=== PATIENT | female | born 1955 | race Caucasian/White ===

== ENCOUNTER → 2016-03-03 12:44 | Outpatient (CLI) | payer MEDICAID ==
[~2016-03-03 12:44] MED LIST: ACETAMINOPHEN325 MG PO; ADVAIR 250/501 DISK INH; ADVAIR 500/501 DISK INH; ASPIRIN325 MG PO; BAYER CHEWABLE81 MG PO; BETAPACE 80 MG80 MG PO; CORDARONE200 MG PO; COREG 3.1253.125 MG PO; CRESTOR10 MG PO; LASIX20 MG PO; LEVAQUIN500 MG PO; LEVOTHYROXINE175 MCG PO; NITRO-DUR0.4 MG TD; NITROSTAT0.4 MG SL; NORVASC5 MG PO; PEPCID20 MG PO; PLAVIX75 MG PO; POTASSIUM CHLO10 ME1 PO; PRAVACHOL40 MG PO; PROVENTIL/2.5 MG/3 M INH; SYNTHROID200 MC1 PO; SYNTHROID300 MCG PO; SYNTHROID50 MCG PO; TOPROL XL100 MG PO; VENTOLIN HFA18 GM INH; VIBRAMYCIN 100100 MG PO; ZESTRIL40 MG PO
== END | disposition home or self-care (01) ==
LOC: D.RT 02-26 09:00
DX: J44.9 Chronic obstructive pulmonary disease, unspecified (principal)

== ENCOUNTER 2016-05-23 11:00 | Outpatient (CLI) | payer MEDICAID ==
[~2016-05-23] VITALS: Ht 165.1 cm; Wt 106.8 kg
--- NOTE | ~2016-05-23 | HEMODYNAMI ---
PATIENT:JAMESON JAIN MEDICAL RECORD: [id number] : 51 LOCATION:[facility] ADMISSION DATE: 05/23/16 Generatedon:05/23/20169:51 Patient name: JAMESON JAIN Patient #: [id number] : 1955 Date of study: 05/23/2016 Page: Of Hemodynamic Procedure Report Patient Data Patient Demographics Procedure consent was obtained First Name: JAMESON Gender: Female Last Name: SUSY : 1955 [facility] Initial: L Age: 60 year(s) Patient #: [id number] Race: SSN: [id number] Additional ID: [id number] Contact details [address]: [address] [place] [address] State: [place] City: [place] Zip code: [address] Past Medical History Allergies Allergen Reaction Date Comments Reported Other allergy 03/30/2015 Sulfa Other allergy 05/23/2016 Sulfa Admission Admission Data Admission Date: 05/23/2016 Admission Time: 10:00 Arrival Date: 05/23/2016 Arrival Time: 0:00 Admit Source: Other Insurance Payor: Private health insurance Height (in.): 67 BSA: 2.17 (m2) Height (cm.): 170.18 BMI: 37.12 (kg/m2) Weight (lbs.): 237 Weight (kg.): 107.5 Lab Results Lab Result Date: 05/23/2016 Lab Result Time: 0:00 Biochemistry Name Units Result Min Max BUN mg/dl 23 --(----)-* 7 18 Creatinine mg/dl 1.6 --(----)-* 0.6 1.3 Procedure Procedure Types Cath Procedure Diagnostic Procedure [facility] w/Coronaries PCI Procedure Coronary Stent Initial Miscellaneous Procedures Moderate Sedation up to 15 minutes Procedure Description Procedure Date Procedure Date: 05/23/2016 Procedure Start Time: 9:33 Procedure End Time: 9:48 Procedure Staff Name Function Ryley Baer MD Performing Physician Joseph Sanabria RT Scrub Jarod Valladares RN Nurse Samantha Carmona RT Monitor Procedure Data Cath Procedure Fluoroscopy Diagnostic fluoroscopy Total fluoroscopy Time: 3.5 time: 3.5 min min Diagnostic fluoroscopy Total fluoroscopy dose: 370 dose: 370 mGy mGy Contrast Material Contrast Material Type Amount (ml) Isovue 300 120 Entry Location Entry Primary Successful Side Size Upsize Upsize Entry Closure Vargas ccessful Closure Location (Fr) 1 (Fr) 2 (Fr) Remarks Device Remarks Radial Right 6 Fr Mechanical tr b artery Short Compression Estimated blood loss: 10 ml Diagnostic catheters Device Type Used For End Catheter Placement Terumo 5Fr Letcher 110cm Procedure catheter Procedure Complications No complications Procedure Medications Medication Administration Route Dosage Oxygen NC 2 l/min Lidocaine 2% added to field 20 Heparin Flush Bag added to field 2 bags (1000units/500ml NS) 0.9% NaCl I.V. 100 ml/hr Versed I.V. 2 mg Fentanyl I.V. 100 mcg Radial Cocktail I.A. 1 syringe (Verapomil 2mg/Nitro 400mcg/Heparin 1500units) Versed I.V. 1 mg Fentanyl I.V. 50 mcg Versed I.V. 1 mg Fentanyl I.V. 50 mcg Heparin Bolus I.V. 4000 units Versed I.V. 1 mg Fentanyl I.V. 50 mcg Hemodynamics Rest BSA: 2.17 (m2) O2 Consumption: Estimated: 193.57 (ml/min) O2 Consumption indexed : Estimated:89.2 (ml/min/m) Heart Rate: 57 (bpm) Snapshots Pre Cath Intra NCS Post Cath Vital Signs Time Heart Resp SPO2 NIBP (mmHg) Rhythm Pain Sedation Rate (ipm) (%) Status Level (bpm) 8:56:34 56 15 100 153/69(130) NSR 0 (11) 10(A) , No pain 9:01:33 54 21 98 Measuring NSR 0 (11) 10(A) , No pain 9:02:24 54 17 99 154/64(79) NSR 0 (11) 10(A) , No pain 9:12:12 55 16 98 No Cuff NSR 0 (11) 10(A) , No pain 9:15:16 54 17 95 122/56(91) NSR 0 (11) 10(A) , No pain 9:19:53 53 16 94 118/56(85) NSR 0 (11) 10(A) , No pain 9:24:25 54 17 97 123/59(71) NSR 0 (11) 10(A) , No pain 9:28:58 56 18 100 124/54(99) NSR 0 (11) 10(A) , No pain 9:34:32 58 21 98 126/61(92) NSR 0 (11) 10(A) , No pain 9:39:04 55 17 94 103/50(69) NSR 0 (11) 9(A) , No pain 9:43:34 57 16 93 104/50(71) NSR 0 (11) 9(A) , No pain 9:48:05 60 16 99 115/48(80) NSR 0 (11) 10(A) , No pain Medications Time Medication Route Dose Verified Delivered Reason Notes Effectiveness by by 9:14:18 Oxygen NC 2 l/min Ryley Buffie used for Keyur Valladares RN procedure 9:14:25 Lidocaine 2% added 20ml Ryley Hedrick for local to vial Keyur Baer MD anesthetic field 9:14:33 Heparin Flush added 2 bags Ryley Hedrick used for Bag to Keyur Baer MD procedure (1000units/500ml field NS) 9:14:43 0.9% NaCl I.V. 100 Ryley Olivera Per physician ml/hr Keyur Valladares RN 9:33:24 Versed I.V. 2 mg Ryley Olivera for sedation Keyur Valladares RN 9:33:29 Fentanyl I.V. 100 mcg Ryley Olivera for sedation Keyur Valladares RN 9:35:50 Radial Cocktail I.A. 1 Ryley Hedrick for (Verapomil syringe Keyur Baer MD vasodilation 2mg/Nitro 400mcg/Heparin 1500units) 9:35:57 Versed I.V. 1 mg Ryley Hedrick for sedation Keyur Baer MD 9:36:02 Fentanyl I.V. 50 mcg Ryley Hedrick for sedation Keyur Baer MD 9:39:35 Versed I.V. 1 mg Ryley Olivera for sedation Keyur Valladares RN 9:39:41 Fentanyl I.V. 50 mcg Ryley Olivera for sedation Keyur Valladares RN 9:41:08 Heparin Bolus I.V. 4000 Ryley Olivera for verif ied units Keuyr Valladares RN anticoagulation with dr baer 9:44:41 Versed I.V. 1 mg Ryley Olivera for sedation Keyur Valladares RN 9:44:46 Fentanyl I.V. 50 mcg Ryley Olivera for sedation Keyur Valladares RN Procedure Log Time Note 8:34:33 Patient Height : 170.18 cm 8:34:40 Patient Weight : 107.5 kg 8:34:41 Arrival Date: 05/23/2016 12:00:00 AM 8:34:43 Admit Source: Other 8:34:56 Insurance Payor : Private health insurance 8:37:43 Lab Result : Creatinine 1.6 mg/dl 8:37:43 Lab Result : BUN 23 mg/dl 8:37:51 Diagnostic Cath Status : Elective 8:40:05 ACC Patient presents with Stable Angina CCS Anginal Class 2--Slight limitation of ordinary activity. 8:40:11 Samantha FLAHERTY(R) sent for patient. Start room use. 8:40:13 Time tracking: Regular hours 8:40:18 Plan of Care:Hemodynamics will remain stable., Cardiac rhythm will remain stable., Comfort level will be maintained., Respiratory function will remain adequate., Patient/ family verbilizes understanding of procedure., Procedure tolerated without complication., Recovers from procedure without complications.. 8:55:07 Vital chart was started 8:55:08 Full Disclosure recording started 8:57:49 Patient received from Pre/Post Procedure Room to [facility] 3 Alert and oriented. Tansferred to table in Supine position. 8:57:53 Warm blankets applied, and yolanda hugger turned on for patient comfort. 8:57:54 Correct patient and procedure confirmed by team. 8:57:56 Signed procedure consent form obtained from patient. 8:57:57 ECG and BP/O2 sat monitors applied to patient. 8:57:59 Baseline sample Acquired. 8:58:04 Rhythm: sinus rhythm 8:58:30 H&P Date Dictated: 05/21/2016 Within 30 days and on chart., H&P Addendum completed by physician on day of procedure. (MUST COMPLETE FOR ALL OUTPATIENTS). 8:58:31 Pre-procedure instructions explained to patient. 8:58:48 Pre-op teaching completed and patient verbalized understanding. 8:58:50 Family in waiting room. 8:58:52 Patient NPO since Midnight. 8:59:04 Patient allergic to Other allergySulfa 8:59:11 Is the patient allergic to Iodine/contrast media? No. 8:59:14 Is patient on blood thinner?Yes 8:59:17 ACC The patient was administered the following blood thiners within the last 24 hours: ACCPlavix 8:59:20 Patient diabetic? No. 8:59:25 Snore? Yes 8:59:27 Sleep apnea? Yes 8:59:35 Airway obstruction? Yes COPD 8:59:40 Dentures? No ? 8:59:52 Patient pain scale 0/10 ?. 9:00:09 IV patent on arrival in left forearm with 0.9% NaCl at [facility]. 9:00:11 Lab results completed and on chart. 9:00:16 Right Radial & Right Groin area was prepped with chlora-prep and draped in sterile fashion 9:00:17 Alarms reviewed by R. N. 9:00:17 Sharps counted by scrub and verified by R.N. 9:00:23 Physician paged 9:09:40 Zero performed for pressure channel P1 9:14:18 Oxygen 2 l/min NC was administered by Jarod Valladares RN; used for procedure; 9:14:25 Lidocaine 2% 20ml vial added to field was administered by Ryley Baer MD; for local anesthetic; 9:14:33 Heparin Flush Bag (1000units/500ml NS) 2 bags added to field was administered by Ryley Baer MD; used for procedure; 9:14:43 0.9% NaCl 100 ml/hr I.V. was administered by Jarod Valladares RN; Per physician; 9:32:31 Physician arrived 9:32:32 --------ALL STOP TIME OUT------ 9:32:32 Final Timeout: patient, procedure, and site verified with staff and physician. All members of the team are in agreement. 9:32:35 Right Radial & Right Groin site verified by team. 9:32:38 Physical assessment completed. ASA score P 2 - A patient with mild systemic disease as per Ryley Baer MD. 9:32:41 Sedation plan: IV Moderate Sedation Versed, Fentanyl 9:32:57 Use device set Radial Dx 9:32:58 Acist Syringe opened to sterile field. 9:32:59 Medline Cath Pack opened to sterile field. 9:32:59 Bag Decanter opened to sterile field. 9:33:00 Terumo 6Fr Slender Glidesheath opened to sterile field. 9:33:00 St Anand 260cm J .035 wire opened to sterile field. 9:33:00 Acist Hand Control opened to sterile field. 9:33:01 Acist Manifold opened to sterile field. 9:33:01 Tegaderm 4 x 4 opened to sterile field. 9:33:24 Versed 2 mg I.V. was administered by Jarod Valladares RN; for sedation; 9:33:29 Fentanyl 100 mcg I.V. was administered by Jarod Valladares RN; for sedation; 9:33:40 Procedure started. 9:33:45 Local anesthetic to right radial artery with Lidocaine 2% by Ryley Baer MD.INITIAL ACCESS ONLY 9:34:59 A 6 Fr Short sheath was inserted into the Right Radial artery 9:35:07 J wire advanced. 9:35:50 Radial Cocktail (Verapomil 2mg/Nitro 400mcg/Heparin 1500units) 1 syringe I.A. was administered by Ryley Baer MD; for vasodilation; 9:35:57 Versed 1 mg I.V. was administered by Ryley Baer MD; for sedation; 9:35:57 A Terumo 5Fr Letcher 110cm catheter was advanced over the wire and used for Procedure. 9:36:02 Fentanyl 50 mcg I.V. was administered by Ryley Baer MD; for sedation; 9:36:13 LV angiography performed. 9:36:59 EF : 60 % 9:37:48 LCA angiography performed. 9:38:31 RCA angiography performed. 9:39:35 Versed 1 mg I.V. was administered by Jarod Valladares RN; for sedation; 9:39:41 Fentanyl 50 mcg I.V. was administered by Jarod Valladares RN; for sedation; 9:40:06 Catheter removed. 9:40:24 [employer] Launcher 6Fr EBU 3.5 guide catheter opened to sterile field. 9:40:50 [employer] BasixCompak Inflation Kit opened to sterile field. 9:40:57 LCA angiography performed. 9:41:08 Heparin Bolus 4000 units I.V. was administered by Jarod Valladares RN; for anticoagulation; verified with dr baer 9:41:43 Catheter removed. 9:42:18 Vasquez Whisper J 300cm 0.014 guide wire opened to sterile field. 9:42:25 Proceeding to intervention. 9:42:49 6 Fr EBU3.5 guide catheter was inserted over the wire 9:42:53 Whis wire advanced. 9:42:55 Wire advanced across lesion. 9:44:10 Inflation Number: 1 A BuddyBouncetronic Integrity 3.0 X 22 stent was prepped and advanced across the Mid LAD. The stent was deployed at 21 JAVIER for 0:10 (min:sec). 9:44:41 Versed 1 mg I.V. was administered by Jarod Valladares RN; for sedation; 9:44:46 Fentanyl 50 mcg I.V. was administered by Jarod Valladares RN; for sedation; 9:44:49 Terumo TR Band Large opened to sterile field. 9:46:03 Stent catheter was removed intact over wire. 9:46:04 Wire removed. 9:46:05 Guide catheter removed. 9:46:22 Sheath removed intact; hemostasis achieved with Mechanical Compression to the Right Radial artery. 9:46:26 Procedure ended.(Physican Out) 9:46:34 Fluoroscopy time 03.50 minutes. 9:46:41 Fluoroscopy dose: 370 mGy 9:46:41 Flurop Dose total: 370 9:46:48 Contrast amount:Isovue 300 120ml. 9:47:02 Sharps counted by scrub and verified by R.N. 9:47:04 TR band inflated with 10cc of air. 9:47:06 Insertion/operative site no bleeding no hematoma. 9:47:15 Post right radial artery:stable 9:47:17 Post Procedure Pulses reassessed and unchanged 9:47:21 Post-procedure physical assessment completed. ASA score P 2 - A patient with mild systemic disease as per Ryley Baer MD. 9:47:24 Post procedure rhythm: unchanged. 9:47:30 Estimated blood loss: 10 ml 9:47:32 Post procedure instruction explained to patient.Patient verbalizes understanding. 9:47:38 Procedure type changed to Cath procedure, Diagnostic procedure, LHC, LHC w/Coronaries, PCI procedure, Coronary Stent Initial, Miscellaneous Procedures, Moderate Sedation up to 15 minutes 9:47:41 Procedure and supply charges have been captured, reviewed, submitted and are correct. 9:48:03 Procedure Complication : No complications 9:48:06 Vital chart was stopped 9:48:14 See physician's report for complete and final results. 9:48:31 Report given to Pre/Post Procedure Room. 9:48:38 Patient transfered to Pre/Post Procedure Room with Stretcher. 9:48:42 Procedure ended. 9:48:42 Full Disclosure recording stopped 9:48:55 ACC-PCI Only Patient was given prescriptions, or instructed by Ryley Baer MD to start/continue the following medications upon discharge: Plavix 9:48:56 End room use (Document Last) Intervention Summary Intervention Notes Time ActionType Lesion and Equipment Action# Pressure Duration Attributes Used 9:44:10 Place stent Mid LAD Medtronic 1 21 00:10 Integrity 3.0 X 22 stent Device Usage Item Name Manufacture Quantity Catalog Hospital Part Current Minimal Lot# / Number Charge Number Stock Stock Serial# Code Acist Acist 1 22330 [id number] [id number] 316507 20 Syringe Medical Systems Inc Medline Cardinal 1 [id number] 858140 29319 983185 5 Cath Pack Health Bag Microtek 1 2002S 407220 70426 670734 5 Debitos [employer] Inc. Terumo 6Fr Terumo 1 [id number] 319303 667779 924743 [address] An[address] St Anand 1 803144 553485 367352 428030 30 260cm J .035 wire Acist Hand Acist 1 31089 858200 059922 627357 5 Control Medical Systems Inc Acist Acist 1 36767 095237 045791 613141 5 Manifold Medical Systems Inc Tegaderm 4 3M 1 1626W 378768 885304 438417 5 x 4 Terumo 5Fr Terumo 1 15-9984 204342 269354 611770 5 Letcher 110cm catheter Medtronic Medtronic 1 [id number] 251716 54912 764688 3 Launcher 6Fr EBU 3.5 guide catheter Merit Merit 1 [id number] 351647 313396 479784 15 Basix280 [employer] Inflation Kit Vasquez Vasquez 1 [id number] 029733 003600 309372 5 Whisper J Vascular 300cm 0.014 guide wire Medtronic Medtronic 1 [id number] 296059 018597 290894 0 [id number] Integrity 3.0 X 22 stent Terumo TR Terumo 1 [id number] 560009 381603 150020 40 Band Large Signature Audit [place] Stage Time Signature Unsigned Intra-Procedure 05/23/2016 Samantha Carmona 9:50:48 AM RT(R) Signatures Monitor : Samantha Carmona Signature : RT Date : Time : [place] [id number] [place] [address]
[2016-05-23 08:22] VITALS: BP 150/48; Ht 165.1 cm; Wt 106.8 kg
[2016-05-23 08:32] LABS: BASOPHILS 0.4 % (0.0-2.0); EOSINOPHILS 2.1 % (0-7); HEMATOCRIT 42.6 % (36.0-48.0); HEMOGLOBIN 14.2 g/dL (12-16); IMMATURE GRANULOCYTES 0.2 % (0-5); LYMPHOCYTES 18.5 % (15-50); MCH 29.3 pg (26.0-34.0); MCHC 33.3 g/dL (31.0-37.0); MEAN PLATELET VOLUME 10.6 fL (7.4-10.4); MONOCYTES 10.9 % (2-11); NEUTROPHILS 67.9 % (40-80); PLATELET COUNT 247 10x3/uL (130-400); RBC 4.84 10x6/uL (4.00-5.40); RDW 13.6 % (11.5-14.5); WBC 9.7 10x3/uL (4.8-10.8)
[2016-05-23 08:47] LABS: CALC OSMOLALITY 272 mosm/kg (275-300); CARBON DIOXIDE 25.1 mmol/L (21.0-32.0); CHLORIDE - SERUM 101 mmol/L (98-107); CREATININE - SERUM 0.8 mg/dL (0.6-1.3); GLUCOSE 109 mg/dL (74-106); SODIUM 136 mmol/L (136-145); UREA NITROGEN 13 mg/dL (7-18); eGFR NON AFRICAN AMERICAN 77 mL/min (90-120)
--- NOTE | 2016-05-23 10:05 | NUR ---
1000 RECEIVED PT FROM PATIENT BILLER, PT IS DROWSY, DENIES ANY C/O. RR IS EVEN AND UNLABORED. TR BAND CDI RIGHT WRIST, NO BLEEDING OR HEMATOMA NOTED. CAP REFILL TO FINGERS IS BRISK, FINGERS PINK AND WARM TO TOUCH. NO FAMILY AT BEDSIDE. CALL LIGHT IN REACH, INSTRUCTED PT TO CALL FOR NEEDS AND PT VERBALIZES UNDERSTANDING.
--- NOTE | 2016-05-23 10:17 | NUR ---
1015 PT DENIES ANY C/O. TR BAND RIGHT WRIST IS CDI WITH NO BLEEDING OR HEMATOMA NOTED. PO FLUIDS SERVED. CALL LIGHT IN REACH.
--- NOTE | 2016-05-23 13:23 | NUR ---
1015-TR BAND IN PLACE, NO BLEEDING NOTED 1045-NO CHANGES TO TR BAND OR RIGHT HAND, DAUGHTER AT SIDE
--- NOTE | 2016-05-23 14:13 | NUR ---
1345-IV D'C WITH CATH TIP INTACT, TRBAND OFF WITH BANDAID IN PLACE, WRITTEN AND VERBAL INSTRUCTIONS GIVEN TO PT AND DAUGHTER, VERBAL UNDERSTANDING NOTED, D'C VIA WC TO DAUGHTER'S CAR, DENIES FURTHUR NEEDS
--- NOTE | 2016-06-06 10:19 | OP ---
PATIENT NAME: JAMESON JAIN MEDICAL RECORD: [id number] :51 LOCATION:D.CAT ADMISSION DATE: SURGEON: VARGAS WAGNER MD DATE OF OPERATION: 05/23/2016 PROCEDURES: 1. PTCA stent LAD. 2. Left heart catheterization. 3. Selective coronary angiography. 4. Left ventriculogram. INDICATION: Angina and coronary artery disease. PROCEDURE IN DETAIL: After informed consent was obtained and after a detailed explanation of risks, benefits as well as alternative therapies, the patient elected to proceed with angiogram and angioplasty. The right radial area was prepped and draped in normal sterile fashion. The right radial artery was cannulated via modified Seldinger technique with placement of 6-Kenyan sheath. All catheters exchanged through this sheath. FINDINGS: Left ventriculogram was performed in standard 30-degree MONTE view, reveals good cardiac wall motion throughout all segments. Overall ejection fraction estimated at 60%. SELECTIVE CORONARY ANGIOGRAPHY: 1. Left main is with no significant angiographic disease. 2. Left anterior descending has a 75% stenosis in the proximal vessel, otherwise only mild irregularities. 3. Left circumflex has moderate irregularities, but no flow-limiting stenosis. Previously placed stent is widely patent. 4. Right coronary is chronically totally occluded. The distal right coronary fills via left to right collaterals. PTCA STENT OF THE LAD: The stent used is a 3.5 x 22 mm Integrity. Result was 0% residual stenosis. OVERALL IMPRESSION: Successful percutaneous transluminal coronary angioplasty stent of the left anterior descending going from 70% to 75% initial stenosis to 0% residual. TRANSINT:[id number] Voice Confirmation ID: [id number] DOCUMENT ID: [id number] VARGAS WAGNER MD at 1019 CC: [id number] DICTATION DATE: 05/23/16 0950 STUD DRIVER: 05/23/16 1405 [facility] CLI 05/23/16 [place] [id number]
== END 2016-05-23 23:59 | disposition home or self-care (01) ==
LOC: D.CATH 11:00
PROVIDERS: Internal Medicine Interventional Cardiology
DX: I25.119 Atherosclerotic heart disease of native coronary artery with unspecified angina pectoris (principal); I25.82 Chronic total occlusion of coronary artery; Z95.5 Presence of coronary angioplasty implant and graft

== ENCOUNTER 2016-05-28 07:23 | Emergency (ER) | payer MEDICAID ==
[2016-05-23 08:22] VITALS: BMI 39.1
== END 2016-05-28 09:14 | disposition home or self-care (01) ==
LOC: D.ER 07:23
DX: G89.18 Other acute postprocedural pain (principal); J44.9 Chronic obstructive pulmonary disease, unspecified; I50.9 Heart failure, unspecified; E83.39 Other disorders of phosphorus metabolism; E87.6 Hypokalemia; E83.42 Hypomagnesemia; F17.200 Nicotine dependence, unspecified, uncomplicated

== ENCOUNTER → 2016-09-01 08:45 | Outpatient (CLI) | payer MEDICAID ==
[2016-05-23 08:22] VITALS: BMI 39.1
== END | disposition home or self-care (01) ==
LOC: D.CT 08-11 08:30
DX: R59.1 Generalized enlarged lymph nodes (principal)

== ENCOUNTER 2016-09-03 21:07 | Observation (INO) | payer MEDICAID ==
[~2016-09-03] VITALS: Ht 165.1 cm; Wt 109.2 kg
--- NOTE | ~2016-09-03 | OP ---
PATIENT NAME: JAMESON JAIN MEDICAL RECORD: [id number] :51 LOCATION:D. D.2114 ADMISSION DATE:09/03/16 SURGEON: VARGAS WAGNER MD OPERATION DATE: 09/04/16 PROCEDURES: 1. Left heart catheterization. 2. Selective coronary angiography. 3. Left ventriculogram. INDICATION: 1. Chest pain compatible with angina. 2. Coronary artery disease. 3. Previous multivessel percutaneous transluminal coronary angioplasty stent. PROCEDURE IN DETAIL: After informed consent was obtained and after detailed explanation of risks, benefits, as well as alternative therapies, the patient elected to proceed with angiogram. The right femoral area was prepped and draped in a normal sterile fashion. The right femoral artery was cannulated via modified Seldinger technique with placement of 5-Khmer sheath. All catheters exchanged through this sheath. FINDINGS: Left ventriculogram was performed in standard 30 degree MONTE review, reveals good cardiac wall motion throughout all segments. Overall ejection fraction estimated 60%. SELECTIVE CORONARY ANGIOGRAPHY: 1. Left main is with no significant angiographic disease. 2. Left anterior descending has multiple previously placed stents with wide patency of all these stents. No significant restenosis. No disease elsewhere throughout the left anterior descending or its branches. 3. The left circumflex shows mild irregularities with no flow-limiting stenosis. 4. The right coronary artery is chronically totally occluded and fills via left to right collaterals. This is unchanged from previous angiography. OVERALL IMPRESSION: Wide patency of the previously placed stents. Chronic occlusion of the right coronary artery with good collaterals. Unchanged from previous angiography. Continue medical management of the coronary artery disease and cardiac risk factors. VARGAS WAGNER MD CC: [id number] DICTATION DATE: 09/05/16 1400 OFFBEARER: DM 09/05/16 1358 DIS IN 09/04/16 [facility] [address] [place] [address]
--- NOTE | ~2016-09-03 | DS ---
PATIENT:JAMESON JAIN :[birth year] MEDICAL RECORD: [id number] DISCHARGE SUMMARY ADMISSION DATE: 09/03/16 DISCHARGE DATE: 09/04/16 DISCHARGE SUMMARY PROBLEM LIST: 1. Angina. 2. Coronary artery disease. 3. Previous multivessel percutaneous transluminal coronary angioplasty stent. 4. Hypertension. 5. Hyperlipidemia. HOSPITAL COURSE: The patient presents with recurrent anginal symptomatology, however, cardiac catheterization reveals wide patency of all of her stents. No new disease. PLAN: Will continue medical management of the coronary artery disease and cardiac risk factors. Follow up in a month. VARGAS WAGNER MD CC: [id number] DICTATION DATE: 09/04/16 1400 INSTITUTIONAL NUTRITION CONSULTANT: DM 09/05/16 1442 DIS IN 09/04/16 [facility] [address] [place] [address]
--- NOTE | ~2016-09-03 | HEMODYNAMI ---
PATIENT:JAMESON JAIN MEDICAL RECORD: [id number] : 51 [id number] ADMISSION DATE: 09/03/16 Generatedon:09/04/201612:35 Patient name: JAMESON JAIN Patient #: [id number] : 1955 Date of study: 09/04/2016 Page: Of Hemodynamic Procedure Report Patient Data Patient Demographics Procedure consent was obtained First Name: JAMESON Gender: Female Last Name: SUSY : 1955 [facility] Initial: L Age: 61 year(s) Patient #: [id number] Race: SSN: [id number] Additional ID: [id number] Contact details [address]: [address] [place] [address] State: [place] City: [place] Zip code: [address] Past Medical History Allergies Allergen Reaction Date Comments Reported Other allergy 03/30/2015 Sulfa Other allergy 05/23/2016 Sulfa Admission Admission Data Admission Date: 09/03/2016 Admission Time: 23:12 Room #: D.2114 Procedure Procedure Types Cath Procedure Diagnostic Procedure [facility] w/Coronaries Miscellaneous Procedures Moderate Sedation up to 15 minutes Procedure Description Procedure Date Procedure Date: 09/04/2016 Procedure Start Time: 12:15 Procedure End Time: 12:32 Procedure Staff Name Function Ryley Baer MD Performing Physician Starla Villar RN Nurse Joseph Sanabria RT Monitor Hermilo Mcgraw RT Scrub Procedure Data Cath Procedure Fluoroscopy Diagnostic fluoroscopy Total fluoroscopy Time: 1.9 time: 1.9 min min Diagnostic fluoroscopy Total fluoroscopy dose: 492 dose: 492 mGy mGy Contrast Material Contrast Material Type Amount (ml) Isovue 300 78 Entry Location Entry Primary Successful Side Size Upsize Upsize Entry Closure Succes sful Closure Location (Fr) 1 (Fr) 2 (Fr) Remarks Device Remarks Femoral Right 5 Fr Exoseal artery Estimated blood loss: 10 ml Diagnostic catheters Device Type Used For End Catheter Placement Cordis 5Fr Pigtail Procedure Catheter (MP) Cordis 5Fr JL 4.0 Procedure Catheter (MP) Cordis 5Fr 3DRC Catheter Procedure (MP) Procedure Complications No complications Procedure Medications Medication Administration Route Dosage Plavix P.O. 75 mg Heparin Flush Bag added to field 2 bags (1000units/500ml NS) Lidocaine 2% added to field Radial Cocktail added to field 1 syringe (Verapomil 2mg/Nitro 400mcg/Heparin 1500units) Oxygen NC 2 l/min Versed I.V. 1 mg Fentanyl I.V. 50 mcg Versed I.V. 1 mg Fentanyl I.V. 50 mcg Fentanyl I.V. 50 mcg Fentanyl I.V. 50 mcg Hemodynamics Rest Heart Rate: 78 (bpm) Pressure Samples Time Site Value (mmHg) Purpose Heart Use Rate(bpm) 12:23 LV 129/21,26 Snapshot 60 Snapshots Pre Cath Intra NCS Post Cath Vital Signs Time Heart Resp SPO2 NIBP (mmHg) Rhythm Pain Sedation Rate (ipm) (%) Status Level (bpm) 12:07:13 64 24 95 169/79(125) NSR 0 (11) 10(A) , No pain 12:11:34 63 23 96 167/79(118) NSR 0 (11) 10(A) , No pain 12:15:56 63 15 96 133/72(107) NSR 0 (11) 10(A) , No pain 12:20:06 60 15 96 135/71(108) NSR 0 (11) 9(A) , No pain 12:24:15 66 16 96 151/73(108) NSR 0 (11) 9(A) , No pain 12:28:29 69 16 98 137/78(112) NSR 0 (11) 9(A) , No pain 12:31:30 68 14 99 145/80(115) NSR 0 (11) 10(A) , No pain Medications Time Medication Route Dose Verified Delivered Reason Notes Eff ectiveness by by 12:06:11 Plavix P.O. 75 mg Ryley Cha Per Keyur Villar RN physician 12:06:19 Heparin Flush added 2 bags Ryley Hedrick used for Bag to Keyur Baer MD procedure (1000units/500ml field NS) 12:06:27 Lidocaine 2% added Ryley Hedrick to Keyur Baer MD field 12:06:34 Radial Cocktail added 1 Ryley Hedrick used for (Verapomil to syringe Keyur Baer MD procedure 2mg/Nitro field 400mcg/Heparin 1500units) 12:06:43 Oxygen NC 2 l/min Ryley Starla Per Keyur Villar RN physician 12:13:38 Versed I.V. 1 mg Ryley Starla for Keyur Villar RN sedation 12:13:44 Fentanyl I.V. 50 mcg Ryley Starla for Keyur Villar RN sedation 12:15:24 Versed I.V. 1 mg Ryley Starla for Keyur Villar RN sedation 12:15:29 Fentanyl I.V. 50 mcg Ryley Starla for Keyur Villar RN sedation 12:17:41 Fentanyl I.V. 50 mcg Ryley Starla for Keyur Villar RN sedation 12:19:07 Fentanyl I.V. 50 mcg Ryley Starla for Keyur Villar RN sedation Procedure Log Time Note 11:40:07 Joseph Sanabria RT(R) sent for patient. Start room use. 11:52:08 Time tracking: Regular hours 11:52:13 Plan of Care:Hemodynamics will remain stable., Cardiac rhythm will remain stable., Comfort level will be maintained., Respiratory function will remain adequate., Patient/ family verbilizes understanding of procedure., Procedure tolerated without complication., Recovers from procedure without complications.. 11:55:32 Patient received from PCU to [facility] 2 Alert and oriented. Tansferred to table in Supine position. 11:55:39 Warm blankets applied, and yolanda hugger turned on for patient comfort. 11:55:40 Correct patient and procedure confirmed by team. 11:55:41 Signed procedure consent form obtained from patient. 11:55:41 ECG and BP/O2 sat monitors applied to patient. 11:59:09 H&P Date Dictated: 09/04/2016 Within 30 days and on chart.. 11:59:11 Pre-procedure instructions explained to patient. 11:59:11 Pre-op teaching completed and patient verbalized understanding. 11:59:13 Family in patients room. 11:59:14 Patient NPO since Midnight. 11:59:15 Is the patient allergic to Iodine/contrast media? No. 11:59:17 Is patient on blood thinner?Yes 11:59:19 ACC The patient was administered the following blood thiners within the last 24 hours: ACCPlavix 11:59:21 Patient diabetic? No. 11:59:23 Patient not . Patient is over age 55. 11:59:25 Previous problem with sedation/anesthesia? No ? 11:59:26 Snore? Yes 11:59:27 Sleep apnea? Yes 11:59:28 Deviated septum? No 11:59:28 Opens mouth fully? Yes 11:59:29 Sticks out tongue? Yes 11:59:33 Airway obstruction? Yes COPD 11:59:36 Dentures? No ? 11:59:41 Pre procedure: right dorsailis pedis pulse 1+ Palpable, but thready & weak; easily obliterated 11:59:43 Modified Brenden's test Ulnar < 7 seconds 11:59:45 Patient pain scale 0/10 ?. 11:59:53 IV patent on arrival in left forearm with 0.9% NaCl at O. 11:59:55 Lab results completed and on chart. 12:06:03 Vital chart was started 12:06:11 Plavix 75 mg P.O. was administered by Starla Villar RN; Per physician; 12:06:19 Heparin Flush Bag (1000units/500ml NS) 2 bags added to field was administered by Ryley Baer MD; used for procedure; 12:06:27 Lidocaine 2% added to field was administered by Ryley Baer MD; ; 12:06:34 Radial Cocktail (Verapomil 2mg/Nitro 400mcg/Heparin 1500units) 1 syringe added to field was administered by Ryley Bare MD; used for procedure; 12:06:43 Oxygen 2 l/min NC was administered by Starla Villar RN; Per physician; 12:13:16 Baseline sample Acquired. 12::19 Rhythm: sinus rhythm 12::20 Full Disclosure recording started 12::26 Right Radial & Right Groin area was prepped with chlora-prep and draped in sterile fashion 12:: Alarms reviewed by RLauren NLauren 12:: Sharps counted by scrub and verified by RLaurenNLauren 12::29 --------ALL STOP TIME OUT------ 12:13:30 Final Timeout: patient, procedure, and site verified with staff and physician. All members of the team are in agreement. 12:13:32 Right Radial & Right Groin site verified by team. 12:13:35 Physical assessment completed. ASA score P 2 - A patient with mild systemic disease as per Ryley Baer MD. 12:13:38 Versed 1 mg I.V. was administered by Starla Villar RN; for sedation; 12:13:38 Sedation plan: IV Moderate Sedation Versed, Fentanyl 12:13:44 Fentanyl 50 mcg I.V. was administered by Starla Villar RN; for sedation; 12:13:56 Use device set Radial Dx 12:13:57 Tegaderm 4 x 4 opened to sterile field. 12:13:58 Acist Hand Control opened to sterile field. 12:13:59 Acist Manifold opened to sterile field. 12:14:00 Acist Syringe opened to sterile field. 12:14:01 Medline Cath Pack opened to sterile field. 12:14:01 Bag Decanter opened to sterile field. 12:14:02 St Anand 260cm J .035 wire opened to sterile field. 12:14:02 MBrace Wrist Support opened to sterile field. 12:15:24 Versed 1 mg I.V. was administered by Starla Villar RN; for sedation; 12:15:29 Fentanyl 50 mcg I.V. was administered by Starla Villar RN; for sedation; 12:15:32 Procedure started. 12:15:35 Local anesthetic to right radial artery with Lidocaine 2% by Ryley Baer MD.INITIAL ACCESS ONLY 12:17:41 Fentanyl 50 mcg I.V. was administered by Starla Villar RN; for sedation; 12:18:05 Unable to advance wire for radial access. Moving to Femoral approach. 12:18:10 Local anesthetic to right femoral artery with Lidocaine 2% by Ryley Baer MD.ADDITIONAL ACCESS 12:18:20 Terumo 5Fr [place] Sheath opened to sterile field. 12:18:22 Use device set Multipack Set 12:18:24 Diagnostic Infinity 5Fr Multipack catheter opened to sterile field. 12:19:07 Fentanyl 50 mcg I.V. was administered by Starla Villar RN; for sedation; 12:21:05 A 5 Fr sheath was inserted into the Right Femoral artery 12::35 A Cordis 5Fr Pigtail Catheter (MP) was advanced over the wire and used for Procedure. 12:23:17 LV angiography performed. 12:23:18 LV gram done using MONTE 12:23:30 EF : 55 % 12:23:31 LV hemodynamics recorded. 12::34 Injector settings: Ml/sec: 10, Volume: 20, 12::35 Catheter removed. 12:23:39 A Cordis 5Fr JL 4.0 Catheter (MP) was advanced over the wire and used for Procedure. 12:24:28 LCA angiography performed. 12:25:40 Catheter removed. 12::21 A Cordis 5Fr 3DRC Catheter (MP) was advanced over the wire and used for Procedure. 12:26:40 RCA angiography performed. 12::56 Catheter removed. 12:27:09 Cordis 5Fr Exoseal opened to sterile field. 12:28:04 Sheath removed intact; hemostasis achieved with Exoseal to the Right Femoral artery. 12:28:07 Procedure ended.(Physican Out) 12::22 Fluoroscopy time 01.90 minutes. 12:28:25 Fluoroscopy dose: 492 mGy 12::25 Flurop Dose total: 492 12::28 Contrast amount:Isovue 300 78ml. 12:28:29 Sharps counted by scrub and verified by R.N. 12:28:31 Insertion/operative site no bleeding no hematoma. 12:28:33 Post-op/insertion site Right Femoral artery dressed using a 4 x 4 and Tegaderm. 12::34 Post Procedure Pulses reassessed and unchanged 12::37 Post-procedure physical assessment completed. ASA score P 2 - A patient with mild systemic disease as per Ryley Baer MD. 12:28:39 Post procedure rhythm: unchanged. 12::41 Estimated blood loss: 10 ml 12::43 Post procedure instruction explained to patient.Patient verbalizes understanding. 12::44 Patient needs reinforcement of post procedure teaching. 12:28:52 Procedure and supply charges have been captured, reviewed, submitted and are correct. 12:28:54 Procedure Complication : No complications 12:32:07 Vital chart was stopped 12:32:08 See physician's report for complete and final results. 12:32:12 Report given to PCU. 12:32:15 Patient transfered to PCU with Bed. 12:32:17 Procedure ended. 12:32:17 Full Disclosure recording stopped 12:32:19 End room use (Document Last) Device Usage Item Name Manufacture Quantity Catalog Hospital Part Current Minimal Lot# / Number Charge Number Stock Stock Serial# Code Tegaderm 4 1 [id number] 096517 816505 5 x 4 Acist Hand Acist 1 48645 568223 950621 914035 5 Control Medical Systems Inc Acist Acist 1 04487 633850 078792 679660 5 Manifold Medical Systems Inc Acist Acist 1 50979 032882 177771 071866 20 Syringe Medical Systems Inc Medline Cardinal 1 [id number] 472931 98142 281023 5 Cath Pack Health Bag Microtek 1 2001S 937533 69045 854868 [address] Anand St Anand 1 582297 441944 002017 576776 30 260cm J .035 wire MBrace Advanced 1 140-0250-00 334056 03726 403279 5 Wrist Vascular Support Dynamics Terumo 5Fr Terumo 1 [id number] 330161 546609 500222 40 [place] Sheath Diagnostic Cardinal 1 [id number] 653998 64403 479915 30 Infinity Health 5Fr Multipack catheter Cordis 5Fr Cardinal 1 [id number] 5 Pigtail Health Catheter (MP) Cordis 5Fr Cardinal 1 918195 5 JL 4.0 Health Catheter (MP) Cordis 5Fr Cardinal 1 787548 5 3DRC Health Catheter (MP) Cordis 5Fr Cardinal 1 EX500 876965 118258 608683 10 CareParent Signature Audit [place] Stage Time Signature Unsigned Intra-Procedure 09/04/2016 Hermilo Mcgraw 12:35:13 PM RT(R) Signatures Monitor : Joseph Sanabria RT Signature : Date : Time : [facility] [address] [place] [address]
[2016-09-03 21:48] LABS: BASOPHILS 0.4 % (0-2); EOSINOPHILS 1.3 % (0-7); HEMATOCRIT 40.2 % (36.0-48.0); HEMOGLOBIN 13.5 g/dL (12-16); IMMATURE GRANULOCYTES 0.3 % (0-5); LYMPHOCYTES 22.9 % (15-50); MCH 29.3 pg (26.0-34.0); MCHC 33.6 g/dL (31.0-37.0); MCV 87.2 fL (80.0-100.0); MEAN PLATELET VOLUME 10.5 fL (7.4-10.4); MONOCYTES 10.1 % (2-11); PLATELET COUNT 241 10x3/uL (130-400); RBC 4.61 10x6/uL (4.00-5.40); RDW 14.1 % (11.5-14.5); WBC 11.3 10x3/uL (4.8-10.8)
[2016-09-03 21:59] LABS: ALBUMIN 3.6 g/dL (3.4-5.0); ALKALINE PHOSPHATASE 76 U/L (46-116); ALT (SGPT) 20 U/L (10-68); BILIRUBIN - TOTAL 0.28 mg/dL (0.2-1.3); CALC OSMOLALITY 280 mosm/kg (275-300); CALCIUM 9.3 mg/dL (8.5-10.1); CARBON DIOXIDE 26.3 mmol/L (21.0-32.0); CHLORIDE - SERUM 101 mmol/L (98-107); CREATININE - SERUM 1.2 mg/dL (0.6-1.3); GLUCOSE 124 mg/dL (74-106); POTASSIUM - SERUM 3.8 mmol/L (3.5-5.1); PROTEIN - SERUM 7.1 g/dL (6.4-8.2); SODIUM 139 mmol/L (136-145); UREA NITROGEN 17 mg/dL (7-18); eGFR NON AFRICAN AMERICAN 48 mL/min (90-120)
[2016-09-03 22:10] LABS: CHOL - HDL RATIO 3.5 ratio (2.3-4.1); CHOLESTEROL, TOTAL 152 mg/dL (0-200); CKMB 0.7 U/L (0.0-3.6); CREATINE KINASE 70 UL (21-215); HDL CHOLESTEROL 43 mg/dL (32-96); LDL CHOLESTEROL 76 mg/dL (0-100); LDL-HDL RATIO 1.8 ratio (1.5-3.5); TRIGLYCERIDE 169 mg/dL (30-200)
[2016-09-03 22:11] LABS: TROPONIN-I < 0.017 ng/mL (0.000-0.060)
--- NOTE | 2016-09-04 00:25 | NUR ---
REPORT RECEIVED FROM MARY WANG
[2016-09-04 00:39] LABS: TROPONIN-I 0.02 ng/mL (0.000-0.060)
--- NOTE | 2016-09-04 00:44 | NUR ---
ARRIVED TO FLOOR VIA WHEELCHAIR, ACCOMPANIED BY HOSPITAL STAFF. PLACED ON TELEMETRY, ORIENTED TO UNIT. CALL LIGHT IN REACH. SEE NURSE ASSESSMENT. WILL CONTINUE TO MONITOR.
[2016-09-04] MEDS ORDERED: NIFEDIPINE ER30 MG PO (01:12)
[2016-09-04] MEDS ORDERED: ISOSORBIDE MONO60 M1 PO (01:12)
[2016-09-04] MEDS ORDERED: ZANTAC150 MG PO (01:12)
[2016-09-04] MEDS ORDERED: PROAIR HFA8.5 GM INH (01:13)
[2016-09-04] MEDS ORDERED: SINGULAIR10 MG PO (01:14)
[2016-09-04 01:18] VITALS: BP 129/58; Ht 165.1 cm; Wt 109.2 kg
[2016-09-04 01:19] VITALS: BP 141/55
[2016-09-04 05:37] LABS: CKMB 0.8 U/L (0.0-3.6); CREATINE KINASE 70 UL (21-215)
[2016-09-04 05:41] LABS: TROPONIN-I < 0.017 ng/mL (0.000-0.060)
[2016-09-04 06:18] VITALS: BP 128/60
--- NOTE | 2016-09-04 06:20 | NUR ---
NO CHANGES FROM PREVIOUS ASSESSMENT, UP TO SHOWER. LINENS CHANGED.
[2016-09-04 08:09] VITALS: BP 133/50
[2016-09-04 10:10] LABS: BASOPHILS 0.4 % (0-2); EOSINOPHILS 1.4 % (0-7); HEMATOCRIT 40.1 % (36.0-48.0); HEMOGLOBIN 13.3 g/dL (12-16); IMMATURE GRANULOCYTES 0.4 % (0-5); LYMPHOCYTES 28.5 % (15-50); MCH 29.2 pg (26.0-34.0); MCHC 33.2 g/dL (31.0-37.0); MCV 88.1 fL (80.0-100.0); MEAN PLATELET VOLUME 10.8 fL (7.4-10.4); MONOCYTES 13.5 % (2-11); NEUTROPHILS 55.8 % (40-80); PLATELET COUNT 230 10x3/uL (130-400); RBC 4.55 10x6/uL (4.00-5.40); RDW 14.3 % (11.5-14.5); WBC 8.5 10x3/uL (4.8-10.8)
[2016-09-04 10:19] LABS: ANION GAP 15.3 mmol/L (8-16); CALCIUM 9.1 mg/dL (8.5-10.1); CARBON DIOXIDE 24.6 mmol/L (21.0-32.0); CREATININE - SERUM 0.9 mg/dL (0.6-1.3); POTASSIUM - SERUM 3.9 mmol/L (3.5-5.1)
--- NOTE | 2016-09-04 10:41 | NUR ---
TELEMETRY SR. CONSENTS SIGNED FOR [facility]. WILL CONT. PLAN OF CARE.
--- NOTE | 2016-09-04 11:53 | NUR ---
PRE-OPS GIVEN. TO MEDICAL RESEARCH SCIENTIST BY BED.
[2016-09-04 12:26] LABS: CKMB 0.9 U/L (0.0-3.6); CREATINE KINASE 73 UL (21-215); TROPONIN-I 0.016 ng/mL (0.000-0.060)
--- NOTE | 2016-09-04 12:50 | NUR ---
BACK FROM V GROOVE CUTTER. VS WNL. RIGHT GROIN STABLE WITHOUT BLEEDING OR HEMATOMA NOTED. WILL MONITOR.
--- NOTE | 2016-09-04 14:48 | NUR ---
BED REST UP. GROIN STABLE.
--- NOTE | 2016-09-04 15:37 | NUR ---
IV AND TELEMETRY DCD. DC PLANS GIVEN. UNDERSTANDING VOICED. ESCORTED TO CAR BY W/C.
== END 2016-09-04 15:37 | disposition home or self-care (01) ==
LOC: D.ER 21:07 → D.M2 23:12 → OBSVTIME 23:12 → D.M2 23:12
PROVIDERS: Family Medicine; ADMIT Internal Medicine Interventional Cardiology
DX: I25.10 Atherosclerotic heart disease of native coronary artery without angina pectoris (principal); I48.91 Unspecified atrial fibrillation; I11.0 Hypertensive heart disease with heart failure; I50.9 Heart failure, unspecified; E78.5 Hyperlipidemia, unspecified; Z72.0 Tobacco use

== ENCOUNTER 2017-02-06 15:44 | Inpatient (IN) | payer MEDICAID ==
[~2017-02-06] VITALS: Ht 165.1 cm; Wt 102.4 kg
[~2017-02-06 15:44] MED LIST changes: +ISOSORBIDE MONO60 M1 PO; +NIFEDIPINE ER30 MG PO; +PROAIR HFA8.5 GM INH; +SINGULAIR10 MG PO; +ZANTAC150 MG PO
--- NOTE | 2017-02-06 16:48 | NUR ---
PT TO FLOOR VIA WHEELCHAIR. PT IS ALERT AND ORIENTED. WILL ADMIT PT AND CONTINUE TO MONITOR.
--- NOTE | 2017-02-06 16:55 | NUR ---
PT ARRIVES TO FLOOR VIA WHEELCHAIR BY HOSP. STAFF. PT IS ALERT AND ORIENTED, ON ROOM AIR. WILL ADMIT PT AND CONT TO [facility].
--- NOTE | 2017-02-06 17:02 | NUR ---
DR. SOOD ON UNIT. INFORMED HER THAT PT IS HERE AND HAS LOW GRADE TEMP OF 99.9. ORDERS RECEIVED.
[2017-02-06] MEDS ORDERED: AUGMENTIN 875-11 TAB PO (17:07)
[2017-02-06] MEDS ORDERED: STERAPRED 5MG 65 M1 PO (17:08)
[2017-02-06 17:32] VITALS: BP 163/80; BMI 12.3
--- NOTE | 2017-02-06 18:17 | NUR ---
STARTED IV 22G TO L INSIDE REST.TAPED AND SECURED. PT TOLERATES WELL. IV MEDS STARTED. CALL LIGHT WITH IN REACH.
[2017-02-06 18:22] LABS: BASOPHILS 0.8 % (0-2); EOSINOPHILS 0.3 % (0-7); HEMATOCRIT 42.5 % (36.0-48.0); HEMOGLOBIN 14.2 g/dL (12-16); IMMATURE GRANULOCYTES 0.9 % (0-5); LYMPHOCYTES 15.7 % (15-50); MCH 28.9 pg (26.0-34.0); MCHC 33.4 g/dL (31.0-37.0); MCV 86.6 fL (80.0-100.0); MEAN PLATELET VOLUME 10.5 fL (7.4-10.4); NEUTROPHILS 62.3 % (40-80); PLATELET COUNT 235 10x3/uL (130-400); RBC 4.91 10x6/uL (4.00-5.40); RDW 14.3 % (11.5-14.5); WBC 8.8 10x3/uL (4.8-10.8)
[2017-02-06 18:59] LABS: ALBUMIN 3.9 g/dL (3.4-5.0); ANION GAP 11.3 mmol/L (8-16); BILIRUBIN - TOTAL 0.3 mg/dL (0.2-1.3); CALCIUM 9.2 mg/dL (8.5-10.1); POTASSIUM - SERUM 4.3 mmol/L (3.5-5.1); PROTEIN - SERUM 7.1 g/dL (6.4-8.2)
--- NOTE | 2017-02-06 20:00 | NUR ---
ROUNDING NOTE: PT MILDLY SOB ON 2LNC. NS @ 40CC/HR, TO 22G LEFT WRIST IV SITE. LOW GRADE TEMP 99.9, IMPROVED W/ TYLENOL. TX W/ LEVAQUIN & SOLUMEDROL. WILL CONT TO MONITOR.
[2017-02-06 22:00] VITALS: BP 117/52
[2017-02-07 00:36] VITALS: BP 114/45
[2017-02-07 05:11] VITALS: BP 134/63
--- NOTE | 2017-02-07 06:36 | NUR ---
AM ROUNDING- RECEIVED REPORT FROM PIPELINER NURSE PANFILO. PT IS CURRENTLY LAYING IN BED ON LEFT SIDE WITH EYES OPEN RESTING. ON 02 AT 2L VIA NC. NO MONITOR. IV SEEN TO LEFT WRIST WITH NS RUNNING AT 40CC. NO NEED AT THIS CURRENT TIME. WILL CONTINUE TO MONITOR AND CONTINUE WITH PLAN OF CARE.
--- NOTE | 2017-02-07 07:28 | NUR ---
PT FEELING MUCH BETTER. RESTING COMFORTABLY ON 2LNC. WILL CONT TO MONITOR.
[2017-02-07 09:19] VITALS: BP 139/60
[2017-02-07 12:08] VITALS: BP 144/44
[2017-02-07 12:39] VITALS: Ht 165.1 cm; Wt 102.4 kg
[2017-02-07 17:07] VITALS: BP 112/45
--- NOTE | 2017-02-07 17:16 | NUR ---
PT IS CURRENTLY SITTING UP IN BED EATING DINNER. NO NEED AT THIS CURRENT TIME. WILL CONTINUE TO MONITOR.
--- NOTE | 2017-02-07 18:28 | NUR ---
22G IV INSERTED INTO PTS RIGHT HAND X1 STICK. PT STILL HAS IV TO LEFT WRIST HOWEVER IT CONTINOUSLY STATES OCCLUDED. IV TO LEFT WRIST WILL FLUSH SO KEPT IT JUST INCASE. IV FLUIDS HOOKED UP TO PTS RIGHT HAND. WILL CONTINUE TO MONITOR.
--- NOTE | 2017-02-07 20:30 | NUR ---
ROUNDING NOTE: PT SITTING UP IN CHAIR COMFORTABLY AT THE CHANGE OF SHIFT, PT IS ON 2LNC, IVF RUNNING WITHOUT ISSUE. PT FEELING MUCH BETTER THAN YESTERDAY. WILL CONT TO MONITOR.
[2017-02-07 21:08] VITALS: BP 124/52
[2017-02-08 01:27] VITALS: BP 122/56
[2017-02-08 06:51] VITALS: BP 135/60
--- NOTE | 2017-02-08 07:42 | NUR ---
PT RESTING COMFORTABLY THROUGHOUT THE NIGHT. DENIES ANY NEEDS. WILL CONT TO MONITOR.
[2017-02-08 08:24] VITALS: BP 135/59
[2017-02-08] MEDS ORDERED: NIFEDIPINE ER90 MG PO (08:58)
--- NOTE | 2017-02-08 09:00 | NUR ---
AM ROUNDS COMPLETED. INTRODUCED MYSELF TO PT PRIMARY RN FOR TODAYS SHIFT. PT A&O SITTING UP IN BED RESTING QUIETLY. SHIFT ASSESSMENT COMPLETED. RR NONLABORED WITH NC @1.5L IN PLACE. PT C/O NOT BEING ABLE TO SLEEP FROM LASIX GIVEN SO LATE AND HER HAVING TO URINATE ALL NIGHT, NORMALLY SHE TAKES IT AT 7AM AND NOON AT HOME SO WILL ASK PRIMARY IF OKAY TO CHANGE FOR HER CONVIENENCE. PT HAS NOT BEEN AN ACCURATE I&O AND STATES NOONE HAS TOLD HER WE NEED IT, PROVIDED PT WITH A TOPHAT AND TEACHING WAS PROVIDED ABOUT STRICT I&O FOR OUR UNIT PER POLICY BUT ALSO BENEFICIAL FOR HER SHE IS ON LASIX FOR A REASON AND WE NEED TO KNOW OUTPUT. PT VERBALIZED UNDERSTANDING AND DENIES ANY QUESTIONS OR CONCERNS. CL IN REACH, BED IN LOWEST, SIDE RAILS X2. NO FURTHER NEEDS AT THIS TIME, WILL CPOC.
[2017-02-08 12:11] VITALS: BP 125/46
--- NOTE | 2017-02-08 13:19 | NUR ---
PT C/O ZELAYA AND WOULD LIKE A TYLENOL WILL PROVIDE HER WITH IT. D/C PTS L.WRIST PIV WITH CATHETER TIP FULLY INTACT IT WAS INFILTRATED AND PAINFUL. PT VOICED THANKS AND DENIES ANY FURTHER NEEDS AT THIS TIME. WILL CPOC.
--- NOTE | 2017-02-08 16:00 | NUR ---
PT SITTING UP IN BEDSIDE CHAIR RESTING QUIETLY. PT STATES RELIEF OF ZELAYA FROM HER TYLENOL. PT STATES SHE IS DOING WELL AND WISHES SHE COULD BE DISCHARGED TODAY. CL IN REACH, BED IN LOWEST, SIDE RAILS X2. WILL CPOC.
[2017-02-08 17:02] VITALS: BP 108/54
--- NOTE | 2017-02-08 19:45 | NUR ---
PT RESTING IN BED. ALERT/ORIENTED. O2 @ 1.5ML/HR WITH NONLABORED RESPIRATIONS. IV TO RIGHT HAND WITH NS @ 40ML/HR. SEE ASSESSMENT FLOW SHEET. CPOC. CALL LIGHT IN REACH.
[2017-02-08 21:07] VITALS: BP 117/46
[2017-02-09 00:58] VITALS: BP 121/51
[2017-02-09 05:19] VITALS: BP 158/58
--- NOTE | 2017-02-09 05:40 | NUR ---
PT AWAKE AND SITTING ON SIDE OF BED. C/O MILD HEADACHE. TYLENOL AND AM MEDS PROVIDED. IVF INFUSING. NO OTHER NEEDS. DRINKING COFFEE. CPOC.
[2017-02-09 05:45] LABS: BASOPHILS 0 % (0-2); EOSINOPHILS 0 % (0-7); HEMATOCRIT 39.3 % (36.0-48.0); HEMOGLOBIN 12.9 g/dL (12-16); LYMPHOCYTES 12.3 % (15-50); MCH 28.4 pg (26.0-34.0); MCHC 32.8 g/dL (31.0-37.0); MCV 86.6 fL (80.0-100.0); MEAN PLATELET VOLUME 10.4 fL (7.4-10.4); NEUTROPHILS 80.7 % (40-80); PLATELET COUNT 237 10x3/uL (130-400); RBC 4.54 10x6/uL (4.00-5.40); RDW 14.3 % (11.5-14.5); WBC 7.7 10x3/uL (4.8-10.8)
[2017-02-09 06:22] LABS: ANION GAP 14.2 mmol/L (8-16); CALCIUM 8.4 mg/dL (8.5-10.1); CARBON DIOXIDE 25.2 mmol/L (21.0-32.0); CREATININE - SERUM 0.9 mg/dL (0.6-1.3); POTASSIUM - SERUM 4.4 mmol/L (3.5-5.1)
--- NOTE | 2017-02-09 07:25 | NUR ---
RECIEVED REPORT ON PATIENT, PATIENT IS ALERT AND ORIENTED AT THIS TIME. PATIENT HAS A R HAND IV WITH NS INFUSING AT 40ML/HR. PATIENT IS RECIEVING BREATHING TREATMENT PER RESPIRATORY AT THIS TIME. PATIENT DENIES ANY NEEDS OR COMPLAINTS. BED LOW AND LOCKED. CALL LIGHT IN REACH. CPOC
[2017-02-09 08:02] VITALS: BP 154/61
--- NOTE | 2017-02-09 09:44 | NUR ---
MORNING MEDICATIONS GIVEN. NEEDS MET. PATIENT DENIES ANY FURTHER NEEDS. CPOC
--- NOTE | 2017-02-09 12:00 | NUR ---
PATIENT EATING LUNCH, DENIES ANY NEEDS AT THIS TIME. CPOC
[2017-02-09 13:05] VITALS: BP 139/62
[2017-02-09] MEDS ORDERED: PREDNISONE10 MG PO (13:39)
[2017-02-09] MEDS ORDERED: LEVAQUIN500 MG PO (13:41)
--- NOTE | 2017-02-09 13:57 | NUR ---
TYLENOL GIVEN FOR HEADACHE. DENIES ANY OTHER NEEDS. WAITING ON DISCHARGE PAPERWORK. CPOC
--- NOTE | 2017-02-09 15:45 | NUR ---
PATIENT GIVEN DC INSTRUCTIONS. IV DC WITH CATH TIP INTACT. PATIENT DENIES ANY QUESTIONS. PATIENT READY FOR DC.
--- NOTE | 2017-02-09 17:21 | NUR ---
Patient Name: JAMESON JAIN Admission Status: Urgent Accout number: [id number] Admission Date: 02-06-2017 : 1955 Admission Diagnosis: Attending: JANETTE MUNOZ Current LOS: 3 Anticipated DC Date: 02-09-2017 Planned Disposition: Home Primary Insurance: [place] PRIVATE OPTIONS JOHN LATE ENTRY: Discharge Planning Comments: * Is the patient Alert and Oriented? Yes 0 * How many steps to enter\exit or inside your home? 2 0 * PCP DR. MUNOZ 0 * Pharmacy [facility] [address] * Preadmission Environment Home Alone 0 * ADLs Independent 0 * Equipment CPAP Nebulizer 0 * Other Equipment [facility] - MEDICAL EQUIPMENT PROVIDER 0 * List name and contact numbers for known caregivers / representatives who currently or will assist patient after discharge: SAAD GLEASON DTRodrigo, 0 * Community resources currently utilized None 0 * Please name any agencies selected above. NONE 0 * Additional services required to return to the preadmission environment? No 0 * Can the patient safely return to the preadmission environment? Yes 0 * Has this patient been hospitalized within the prior 30 days at any hospital? No 0 CM MET WITH PT IN ROOM TO DISCUSS DISCHARGE PLANNING AND NEEDS. PT REPORTS LIVING AT HOME INDEPENDENTLY AND ALONE. PT HAS CPAP AND NEBULIZER FROM [facility]. PT HAS NO OUTSIDE SERVICES ASSISTING IN THE HOME. CM DISCUSSED AVAILABILITY OF HOME HEALTH, REHAB SERVICES AND MEDICAL EQUIPMENT. PT DENIES DISCHARGE NEEDS, REPORTS SHE IS DRIVING HERSELF HOME AT DISCHARGE TODAY. PRESALES CONSULTANT NURSE NOTIFIED. [employer] And Pest Inspector: Josue Sal
--- NOTE | 2017-02-19 14:06 | CN ---
PATIENT NAME:JAMESON JAIN MEDICAL RECORD: [id number] : [birth year] LOCATION:[facility] D.2134 ADMIT DATE: 02/06/17 ACCOUNT: [id number] CONSULTING PHYSICIAN: BREANN KOEHLER MD REFERRING PHYSICIAN: JANETTE PATTERSON MD DATE OF CONSULTATION: 02/07/2017 CONSULT REQUESTING PHYSICIAN: Dr. Piero Sood. REASON FOR CONSULTATION: Acute exacerbation of COPD. HISTORY OF PRESENT ILLNESS: Ms. Jain is a 61-year-old female, very well known to me. The patient was sick for the last 1 week. She was given some amoxicillin and prednisone, but she was not getting any better. She was admitted directly from Dr. Patterson' office yesterday with acute exacerbation of chronic obstructive pulmonary disease. She is wheezing, she is coughing. She has shortness of breath. No fever and chills, no night sweats. REVIEW OF SYSTEMS: Mainly in the history of present illness. PAST MEDICAL HISTORY: 1. COPD. 2. Coronary artery disease. 3. Congestive heart failure. 4. History of atrial fibrillation. 5. History of pneumonia. PAST SURGICAL HISTORY: 1. She has a cardiac catheterization and stent placement in the past. 2. Cholecystectomy. 3. Appendectomy. 4. Hysterectomy. ALLERGIES: SHE IS ALLERGIC TO SULFA, LIPITOR, VOLTAREN AND HYDROCHLOROTHIAZIDE. MEDICATIONS: Present medications on Skift was reviewed. PERSONAL AND SOCIAL HISTORY: The patient is an ex-smoker. She is a nondrinker. FAMILY HISTORY: Noncontributory. PHYSICAL EXAMINATION: GENERAL: Now, the patient is lying comfortably in bed. She is not in acute distress. VITAL SIGNS: The blood pressure is 144/44, pulse is 64, respirations 16-18, temperature 98.4, and SpO2 is 97% on 3 liters nasal cannula. HEENT: Conjunctivae pink, sclerae nonicteric. NECK: Neck is supple, no JVD. CHEST: The chest excursion is minimal on both sides. Wheeze on forceful expiration. HEART: Rhythm regular, normal sound, no murmur. ABDOMEN: Abdomen is soft. Bowel sounds present. No hepatosplenomegaly. RECTAL: Deferred. EXTREMITIES: No cyanosis, no clubbing. There is 1+ pedal edema. SKIN: The skin is warm, normal turgor. CONSULT REPORT [id number] JAMESON JAIN CENTRAL NERVOUS SYSTEM: The patient is awake and alert. There are no obvious cranial nerve abnormality. The gait was not tested. Chest radiograph: Hyperinflation, there are no acute infiltrates. LABORATORY DATA: CBC: WBC 8.8, hemoglobin 14.2, hematocrit 42.5, and platelet count 234. Sodium 135, potassium 4.3, BUN 19, creatinine is 1. IMPRESSION: 1. Acute exacerbation of chronic obstructive pulmonary disease. 2. Tracheobronchitis. 3. Dyspnea on exertion. 4. Acute cough. 5. Congestive heart failure, possible diastolic dysfunction. 6. History of coronary artery disease. RECOMMENDATION: 1. We will continue albuterol/ipratropium nebulizer, methylprednisolone IV, empiric antibiotic. 2. Mucokinetics. 3. Supplemental oxygen if required. 4. Follow up labs and chest radiograph. Dr. Sood, thank you for involving me in the care of Ms. Jain. TRANSINT:[id number] Voice Confirmation ID: [id number] DOCUMENT ID: [id number] BREANN KOEHLER MD at 1406 CC: PIERO SOOD MD [id number] DICTATION DATE: 02/07/17 1410 TRAIN CONTROL ELECTRONIC TECHNICIAN: 02/07/17 1448 DIS IN 02/09/[address] [id number]
== END 2017-02-09 16:57 | disposition home or self-care (01) | DRG 191 ==
LOC: D.M2 15:44
PROVIDERS: Family Medicine; ADMIT Family Medicine
DX: J44.1 Chronic obstructive pulmonary disease with (acute) exacerbation (principal); I50.30 Unspecified diastolic (congestive) heart failure; I25.10 Atherosclerotic heart disease of native coronary artery without angina pectoris; I48.91 Unspecified atrial fibrillation; I11.0 Hypertensive heart disease with heart failure; K21.9 Gastro-esophageal reflux disease without esophagitis; E03.9 Hypothyroidism, unspecified; E78.5 Hyperlipidemia, unspecified; Z95.5 Presence of coronary angioplasty implant and graft; Z87.891 Personal history of nicotine dependence

== ENCOUNTER 2017-07-24 15:52 | Emergency (ER) | payer MEDICAID ==
[2017-02-07 12:39] VITALS: BMI 39.5
[~2017-07-24 15:52] MED LIST changes: +AUGMENTIN 875-11 TAB PO; +NIFEDIPINE ER90 MG PO; +PREDNISONE10 MG PO; +STERAPRED 5MG 65 M1 PO
[2017-07-24 17:33] LABS: BASOPHILS 0.7 % (0-2); EOSINOPHILS 1.3 % (0-7); HEMATOCRIT 43.7 % (36.0-48.0); HEMOGLOBIN 15.2 g/dL (12-16); IMMATURE GRANULOCYTES 0.5 % (0-5); LYMPHOCYTES 29.4 % (15-50); MCH 29.1 pg (26.0-34.0); MCHC 34.8 g/dL (31.0-37.0); MCV 83.6 fL (80.0-100.0); MEAN PLATELET VOLUME 10.2 fL (7.4-10.4); MONOCYTES 10.2 % (2-11); NEUTROPHILS 57.9 % (40-80); PLATELET COUNT 313 10x3/uL (130-400); RBC 5.23 10x6/uL (4.00-5.40); RDW 14.3 % (11.5-14.5); WBC 9.5 10x3/uL (4.8-10.8)
[2017-07-24 17:48] LABS: ALBUMIN 3.7 g/dL (3.4-5.0); ALKALINE PHOSPHATASE 90 U/L (46-116); ALT (SGPT) 19 U/L (10-68); CALC OSMOLALITY 274 mosm/kg (275-300); CALCIUM 9.4 mg/dL (8.5-10.1); CARBON DIOXIDE 25.7 mmol/L (21.0-32.0); CHLORIDE - SERUM 99 mmol/L (98-107); CREATININE - SERUM 0.9 mg/dL (0.6-1.3); GLUCOSE 122 mg/dL (74-106); PROTEIN - SERUM 7.7 g/dL (6.4-8.2); SODIUM 136 mmol/L (136-145); UREA NITROGEN 18 mg/dL (7-18); eGFR NON AFRICAN AMERICAN 67 mL/min (90-120)
[2017-07-24 18:01] LABS: CKMB 0.7 U/L (0.0-3.6); CREATINE KINASE 63 UL (21-215); PRO BNP 928 pg/mL (0-125)
[2017-07-24 18:05] LABS: TROPONIN-I < 0.017 ng/mL (0.000-0.060)
== END 2017-07-24 21:51 | disposition home or self-care (01) ==
LOC: D.ER 15:52
PROVIDERS: Physician Assistant Medical
DX: R07.9 Chest pain, unspecified (principal); F17.200 Nicotine dependence, unspecified, uncomplicated; J44.9 Chronic obstructive pulmonary disease, unspecified; I48.91 Unspecified atrial fibrillation

== ENCOUNTER 2017-07-27 08:57 | Outpatient (CLI) | payer MEDICAID ==
--- NOTE | ~2017-07-27 | HEMODYNAMI ---
PATIENT:JAMESON JAIN MEDICAL RECORD: [id number] : 51 LOCATION:YAA ADMISSION DATE: 07/27/17 Generatedon:07/27/201715:29 Patient name: JAMESON JAIN Patient #: [id number] : 1955 Date of study: 07/27/2017 Page: Of Hemodynamic Procedure Report Patient Data Patient Demographics Procedure consent was obtained First Name: JAMESON Gender: Female Last Name: SUSY : 1955 [facility] Initial: L Age: 62 year(s) Patient #: [id number] Race: SSN: [id number] Additional ID: [id number] Contact details [address]: [address] [place] [address] State: [place] City: [place] Zip code: [address] Past Medical History Allergies Allergen Reaction Date Comments Reported Other allergy 03/30/2015 Sulfa Other allergy 05/23/2016 Sulfa Admission Admission Data Admission Date: 07/27/2017 Admission Time: 8:57 Procedure Procedure Types Cath Procedure Diagnostic Procedure LHC LHC w/Coronaries Procedure Description Procedure Date Procedure Date: 07/27/2017 Procedure Start Time: 15:18 Procedure End Time: 15:28 Procedure Staff Name Function Ryley Baer MD Performing Physician Leann James RT Monitor Juan David Dewitt RT Scrub Wilfredo Bajwa RN Nurse Procedure Data Cath Procedure Fluoroscopy Diagnostic fluoroscopy Total fluoroscopy Time: 1.6 time: 1.6 min min Diagnostic fluoroscopy Total fluoroscopy dose: 547 dose: 547 mGy mGy Contrast Material Contrast Material Type Amount (ml) Isovue 300 54 Entry Location Entry Primary Successful Side Size Upsize Upsize Entry Closure Vargas ccessful Closure Location (Fr) 1 (Fr) 2 (Fr) Remarks Device Remarks Radial Right 6 Fr Mechanical artery Short Compression Estimated blood loss: 5 ml Diagnostic catheters Device Type Used For End Catheter Placement DIAGNOSTIC Estill 110cm 5 LV Angiography Fr catheter ([id number]) DIAGNOSTIC Estill 110cm 5 Left Coronary Fr catheter ([id number]) Angiography DIAGNOSTIC Estill 110cm 5 Right Coronary Fr catheter (846168) Angiography Procedure Complications No complications Procedure Medications Medication Administration Route Dosage Oxygen etCO2 Nasal cannula 2 l/min Heparin Flush Bag added to field 2 bags (1000units/500ml NS) 0.9% NaCl I.V. 100 ml/hr Radial Cocktail added to field 1 syringe (Verapomil 2mg/Nitro 400mcg/Heparin 1500units) Fentanyl I.V. 50 mcg Versed I.V. 1 mg Fentanyl I.V. 50 mcg Versed I.V. 1 mg Fentanyl I.V. 50 mcg Versed I.V. 1 mg Radial Cocktail I.A. 1 syringe (Verapomil 2mg/Nitro 400mcg/Heparin 1500units) Fentanyl I.V. 50 mcg Versed I.V. 1 mg Hemodynamics Rest Heart Rate: 59 (bpm) Snapshots Pre Cath Intra NCS Post Cath Vital Signs Time Heart Resp SPO2 etCO2 NIBP (mmHg) Rhythm Pain Sedation Rate (ipm) (%) (mmHg) Status Level (bpm) 15:10:55 58 18 98 32.9 147/64(108) NSR 0 (11) 10(A) , No pain 15:15:54 60 17 99 34.5 154/66(117) NSR 0 (11) 10(A) , No pain 15:21:36 58 17 95 41.2 130/56(75) NSR 0 (11) 9(A) , No pain 15:26:29 59 17 95 32.2 121/59(96) NSR 0 (11) 9(A) , No pain 15:27:35 58 16 98 31.5 115/56(91) NSR 0 (11) 9(A) , No pain Medications Time Medication Route Dose Verified Delivered Reason Notes Effectiveness by by 15:13:06 Oxygen etCO2 2 l/min Ryley Villalobos Nasal Keyur Bajwa RN cannula 15:13:21 Heparin Flush added 2 bags Ryley Villalobos used for Bag to Keyur Bajwa cupola hoist operator (1000units/500ml field NS) 15:13:32 0.9% NaCl I.V. 100 Ryley Villalobos Per ml/hr Keyur Bajwa RN physician 15:13:40 Radial Cocktail added 1 Ryley Villalobos used for (Verapomil to syringe Keyur Bajwa RN procedure 2mg/Nitro field 400mcg/Heparin 1500units) 15:13:51 Fentanyl I.V. 50 mcg Ryley Villalobos for sedation Keyur Bajwa RN 15:13:58 Versed I.V. 1 mg Ryley Villalobos for sedation Keyur Bajwa RN 15:15:22 Fentanyl I.V. 50 mcg Ryley Villalobos for sedation Keyur Bajwa RN 15:15:26 Versed I.V. 1 mg Ryley Villalobos for sedation Keyur Bajwa RN 15:17:38 Fentanyl I.V. 50 mcg Ryley Villalobos for sedation Keyur Bajwa RN 15:17:42 Versed I.V. 1 mg Ryley Wilfredo for sedation Keyur Bajwa RN 15:21:28 Radial Cocktail I.A. 1 Ryley Hedrick for (Verapomil syringe Keyur Baer MD vasodilation 2mg/Nitro 400mcg/Heparin 1500units) 15:23:49 Fentanyl I.V. 50 mcg Ryley Hedrick for sedation Keyur Baer MD 15:23:53 Versed I.V. 1 mg Ryley Hedrick for sedation Keyur Baer MD Procedure Log Time Note 14:46:55 Time tracking: Regular hours (M-F 7:00 - 5:00) 14:47:01 Plan of Care:Hemodynamics will remain stable., Cardiac rhythm will remain stable., Comfort level will be maintained., Respiratory function will remain adequate., Patient/ family verbilizes understanding of procedure., Procedure tolerated without complication., Recovers from procedure without complications.. 14:51:28 Leann James RT(R) sent for patient. Start room use. 14:51:30 Diagnostic Cath status Elective 14:51:42 H&P Date Dictated: 07/23/2017 Within 30 days and on chart., H&P Addendum completed by physician on day of procedure. (MUST COMPLETE FOR ALL OUTPATIENTS). 15:02:30 Patient received from Pre/Post Procedure Room to CCL 1 Alert and oriented. Tansferred to table in Supine position. 15:02:31 Warm blankets applied, and yolanda hugger turned on for patient comfort. 15:02:32 Correct patient and procedure confirmed by team. 15:02:33 Signed procedure consent form obtained from patient. 15:02:34 ECG and BP/O2 sat monitors applied to patient. 15:02:35 ECG and BP/O2 sat monitors applied to patient. 15:02:36 Vital chart was started 15:02:38 Pre-procedure instructions explained to patient. 15:02:39 Pre-op teaching completed and patient verbalized understanding. 15:04:29 Full Disclosure recording started 15:10:10 Rhythm: sinus rhythm 15:10:48 Family in patients room. 15:10:51 Patient NPO since Midnight. 15:10:59 Is the patient allergic to Iodine/contrast media? No. 15:11:00 Is patient on blood thinner?Yes 15:11:02 ACC The patient was administered the following blood thiners within the last 24 hours: ACCAspirin, ACCPlavix 15:11:04 Patient diabetic? No. 15:11:08 Previous problem with sedation/anesthesia? No ? 15:11:09 Snore? Yes 15:11:10 Sleep apnea? Yes 15:11:11 Deviated septum? No 15:11:11 Opens mouth fully? Yes 15:11:12 Sticks out tongue? Yes 15:11:15 Airway obstruction? Yes COPD 15:11:18 Dentures? No ? 15:11:21 Pre procedure: right dorsailis pedis pulse 1+ Palpable, but thready & weak; easily obliterated 15:11:24 Modified Brenden's test Ulnar < 7 seconds 15:11:34 Patient pain scale 0/10 ?. 15:11:45 IV patent on arrival in left hand with 0.9% NaCl at KVO. 15:11:47 Lab results completed and on chart. 15:11:51 Right Radial & Right Groin area was prepped with chlora-prep and draped in sterile fashion 15:11:52 Alarms reviewed by R. N. 15:11:53 Sharps counted by scrub and verified by R.N. 15:12:10 Use device set Radial Dx or PCI 15:12:11 ACIST Syringe (05046) opened to sterile field. 15:12:11 Medline Cath Pack ([id number]) opened to sterile field. 15:12:11 Bag Decanter (2002) opened to sterile field. 15:12:12 DIAGNOSTIC WIRE .035 260cm J wire (326206) opened to sterile field. 15:12:13 ACIST Hand Control (64715) opened to sterile field. 15:12:13 ACIST Manifold (27154) opened to sterile field. 15:12:14 Tegaderm 4 x 4 (1626W) opened to sterile field. 15:12:14 MBrace Wrist Support ([id number]) opened to sterile field. 15:12:15 SHEATH 6Fr Prelude Radial ([id number]) opened to sterile field. 15:12:49 Final Timeout: patient, procedure, and site verified with staff and physician. All members of the team are in agreement. 15:12:51 Right Radial site verified by team. 15:12:55 Physical assessment completed. ASA score P 2 - A patient with mild systemic disease as per Ryley Baer MD. 15:12:59 Sedation plan: IV Moderate Sedation Medication:Versed, Fentanyl 15:13:06 Oxygen 2 l/min etCO2 Nasal cannula was administered by Wilfredo Bajwa RN; ; 15:13:21 Heparin Flush Bag (1000units/500ml NS) 2 bags added to field was administered by Wilfredo Bajwa RN; used for procedure; 15:13:32 0.9% NaCl 100 ml/hr I.V. was administered by Wilfredo Bajwa RN; Per physician; 15:13:40 Radial Cocktail (Verapomil 2mg/Nitro 400mcg/Heparin 1500units) 1 syringe added to field was administered by Wilfredo Bajwa RN; used for procedure; 15:13:51 Fentanyl 50 mcg I.V. was administered by Wilfredo Bajwa RN; for sedation; 15:13:58 Versed 1 mg I.V. was administered by Wilfredo Bajwa RN; for sedation; 15:15:22 Fentanyl 50 mcg I.V. was administered by Wilfredo Bajwa RN; for sedation; 15:15:26 Versed 1 mg I.V. was administered by Wilfredo Bajwa RN; for sedation; 15:16:16 Procedure started. 15:16:17 Zero performed for pressure channel P1 15:16:32 Baseline sample Acquired. 15:17:38 Fentanyl 50 mcg I.V. was administered by Wilfredo Bajwa RN; for sedation; 15:17:42 Versed 1 mg I.V. was administered by Wilfredo Bajwa RN; for sedation; 15:18:35 Local anesthetic to right radial artery with Lidocaine 2% by Ryley Baer MD.INITIAL ACCESS ONLY 15:20:02 A 6 Fr Short sheath was inserted into the Right Radial artery 15:21:28 Radial Cocktail (Verapomil 2mg/Nitro 400mcg/Heparin 1500units) 1 syringe I.A. was administered by Ryley Baer MD; for vasodilation; 15::35 A DIAGNOSTIC Estill 110cm 5 Fr catheter ([id number]) was advanced over the wire and used for LV Angiography. 15:22:03 LV gram done using MONTE 15:22:07 EF : 55 % 15:22:10 Injector settings: Ml/sec: 5, Volume: 15, 15:22:59 A DIAGNOSTIC Estill 110cm 5 Fr catheter ([id number]) was advanced over the wire and used for Left Coronary Angiography. 15:23:42 A DIAGNOSTIC Estill 110cm 5 Fr catheter (167840) was advanced over the wire and used for Right Coronary Angiography. 15:23:49 Fentanyl 50 mcg I.V. was administered by Ryley Baer MD; for sedation; 15:23:53 Versed 1 mg I.V. was administered by Ryley Baer MD; for sedation; 15:24:16 Catheter removed. 15:24:21 TR BAND Standard ([id number]) opened to sterile field. 15:24:33 Sheath removed intact; hemostasis achieved with Mechanical Compression to the Right Radial artery. 15:24:35 Procedure ended.(Physican Out) 15::54 Fluoroscopy time 01.60 minutes. 15::58 Flurop Dose total: 547 15:24:58 Fluoroscopy dose: 547 mGy 15:25:02 Contrast amount:Isovue 300 54ml. 15:25:04 Sharps counted by scrub and verified by R.N. 15:25:07 TR band inflated with 7cc of air. 15:25:07 Insertion/operative site no bleeding no hematoma. 15:25:14 Post right radial artery:stable, clean and dry 15:25:17 Post Procedure Pulses reassessed and unchanged 15:25:21 Post-procedure physical assessment completed. ASA score P 2 - A patient with mild systemic disease as per Ryley Baer MD. 15:25:24 Post procedure rhythm: unchanged. 15:25:36 Estimated blood loss: 5 ml 15:25:37 Post procedure instruction explained to patient.Patient verbalizes understanding. 15:25:38 Patient needs reinforcement of post procedure teaching. 15:25:54 Procedure Complication : No complications 15:25:57 See physician's report for complete and final results. 15:26:50 Procedure and supply charges have been captured, reviewed, submitted and are correct. 15:27:53 Vital chart was stopped 15:27:56 Report given to Pre/Post Procedure Room. 15:28:13 Patient transfered to Pre/Post Procedure Room with Stretcher. 15:28:14 Procedure ended. 15:28:14 Full Disclosure recording stopped 15:28:17 End room use (Document Last) Device Usage Item Name Manufacture Quantity Catalog Number Hospital Part Current M inimal Lot# / Charge Number Stock Stock Serial# Code ACIST Syringe Acist 1 92457 750575 291465 588660 2 0 (60448) Medical Systems Inc Medline Cath Cardinal 1 [id number] 687090 05084 433945 5 Pack Health ([id number]) Bag Decanter Microtek 1 2001S 982636 88056 413323 5 (2001S) Medical Inc. DIAGNOSTIC WIRE [place] 1 499507 956166 444290 507596 3 0 .035 260cm J wire (186071) ACIST Hand Acist 1 24416 063662 890598 226829 5 Control (69944) [employer] Systems Inc ACIST Manifold Acist 1 42434 406526 932639 858072 5 (85805) Medical Systems Inc Tegaderm 4 x 4 3M 1 1626W 685842 575153 933203 5 (1626W) MBrace Wrist Advanced 1 140-0250-00 058779 62081 715370 5 Support Vascular ([id number]) Dynamics SHEATH 6Fr Merit 1 [id number] 273506 853115 163089 5 Prelude Radial Medical ([id number]) DIAGNOSTIC Terumo 1 40-9532 952989 680885 159586 5 Estill 110cm 5 Fr catheter (644295) TR BAND Terumo 1 [id number] 695919 744890 563001 4 0 Standard ([id number]) Signature Audit [place] Stage Time Signature Unsigned Intra-Procedure 07/27/2017 Leann 3:29:27 PM Counts RT(R) Signatures Monitor : Leann Signature : Counts RT Date : Time : [address] [place] [address]
--- NOTE | ~2017-07-27 | OP ---
PATIENT NAME: JAMESON JAIN MEDICAL RECORD: [id number] :51 LOCATION:D.CAT ADMISSION DATE: SURGEON: VARGAS WAGNER MD DATE OF OPERATION: 07/27/2017 PROCEDURES: 1. Left heart catheterization. 2. Selective coronary angiography. 3. Left ventriculogram. INDICATION: Angina and coronary artery disease. PROCEDURE IN DETAIL: After informed consent was obtained and after detailed explanation of risks, benefits as well as alternative therapies, the patient elected to proceed with angiogram and heart catheterization. The right radial area was prepped and draped in normal sterile fashion. Right radial artery was cannulated via modified Seldinger technique with placement of 5-Mohawk sheath. All catheters exchanged through this sheath. FINDINGS: Left ventriculogram was performed in standard 30-degree MONTE view reveals preserved cardiac wall motion, ejection fraction 50%. SELECTIVE CORONARY ANGIOGRAPHY: 1. Left main is with no significant angiographic disease. 2. Left anterior descending has moderate irregularities, but no flow-limiting stenosis. 3. The left circumflex has moderate irregularities, but no flow-limiting stenosis. 4. Right coronary is chronically totally occluded in the proximal vessel. This fills via left to right collaterals. OVERALL IMPRESSION: Wide patency of the LAD and circumflex with total occlusion of the RCA, well collateralized with preserved LV function. Continue medical management of the coronary artery disease and cardiac risk factors. TRANSINT:[id number] Voice Confirmation ID: [id number] DOCUMENT ID: [id number] VARGAS WAGNER MD at 1710 CC: [id number] DICTATION DATE: 08/11/17 1010 PAPER ROLL MACHINE OPERATOR: 08/11/17 1210 DEP CLI 07/27/17 [facility] [address] [place] [address]
[2017-07-27] MEDS ORDERED: ATROVENT 0.02%2.5 ML UPD (09:20)
[2017-07-27 09:31] VITALS: BP 134/58; BMI 39.8
[2017-07-27 09:40] LABS: BASOPHILS 0.6 % (0-2); EOSINOPHILS 1.3 % (0-7); HEMATOCRIT 40.9 % (36.0-48.0); HEMOGLOBIN 13.9 g/dL (12-16); IMMATURE GRANULOCYTES 0.3 % (0-5); LYMPHOCYTES 21.3 % (15-50); MCH 28.9 pg (26.0-34.0); MEAN PLATELET VOLUME 9.9 fL (7.4-10.4); MONOCYTES 10.6 % (2-11); NEUTROPHILS 65.9 % (40-80); PLATELET COUNT 290 10x3/uL (130-400); RBC 4.81 10x6/uL (4.00-5.40); RDW 14.3 % (11.5-14.5); WBC 8.7 10x3/uL (4.8-10.8)
[2017-07-27 09:53] LABS: ANION GAP 12.5 mmol/L (8-16); CARBON DIOXIDE 26.2 mmol/L (21.0-32.0); CREATININE - SERUM 0.9 mg/dL (0.6-1.3); POTASSIUM - SERUM 4.7 mmol/L (3.5-5.1)
== END 2017-07-27 17:35 ==
LOC: D.CATH 08:57
PROVIDERS: Internal Medicine Interventional Cardiology
DX: I25.119 Atherosclerotic heart disease of native coronary artery with unspecified angina pectoris (principal); I10 Essential (primary) hypertension; R01.1 Cardiac murmur, unspecified; E78.5 Hyperlipidemia, unspecified; Z01.812 Encounter for preprocedural laboratory examination

== ENCOUNTER → 2017-08-18 22:33 | Outpatient (CLI) | payer MEDICAID ==
[2017-07-27 09:31] VITALS: BMI 39.8
[~2017-08-18 22:33] MED LIST changes: +ATROVENT 0.02%2.5 ML UPD
[2017-08-18 23:37] LABS: HEMATOCRIT 38.3 % (36.0-48.0); HEMOGLOBIN 12.9 g/dL (12-16); MCH 28.7 pg (26.0-34.0); MCHC 33.7 g/dL (31.0-37.0); MCV 85.1 fL (80.0-100.0); NEUTROPHILS 64.7 % (40-80); PLATELET COUNT 250 10x3/uL (130-400); RDW 14.5 % (11.5-14.5); WBC 8.6 10x3/uL (4.8-10.8)
[2017-08-18 23:57] LABS: ANION GAP 11.6 mmol/L (8-16); CALCIUM 9.1 mg/dL (8.5-10.1); CARBON DIOXIDE 28.7 mmol/L (21.0-32.0); CREATININE - SERUM 0.9 mg/dL (0.6-1.3); MAGNESIUM - SERUM 1.9 mg/dL (1.8-2.4); PHOSPHOROUS 3.4 mg/dL (2.5-4.9); POTASSIUM - SERUM 4.3 mmol/L (3.5-5.1)
== END | disposition home or self-care (01) ==
LOC: D.LABREF 22:33
PROVIDERS: Nurse Practitioner
DX: R53.83 Other fatigue (principal); I10 Essential (primary) hypertension

== ENCOUNTER → 2017-11-11 09:40 | Outpatient (CLI) | payer OTHER | END | disposition home or self-care (01) | LOC: D.RT 08-05 11:00 | DX: Z02.71 Encounter for disability determination (principal) ==

== ENCOUNTER 2017-11-19 05:52 | Inpatient (IN) | payer MEDICAID ==
[2017-11-19] VITALS (7 sets, daily range): BP systolic 99–153; BP diastolic 40–86; BMI 45.0
[~2017-11-19] VITALS: Ht 165.1 cm; Wt 110.1 kg
--- NOTE | ~2017-11-19 | EC ---
PATIENT:JAMESON JAIN DATE OF SERVICE: 11/19/17 SEX: F MEDICAL RECORD: [id number] DATE OF : [birth year] LOCATION:D. D.212 AGE OF PATIENT: 62 ADMISSION DATE: 11/19/17 REFERRING PHYSICIAN: INTERPRETING PHYSICIAN: MOISES WATEMRAN MD ECHOCARDIOGRAM REPORT ECHO CHARGES 4 ECHO COMPLETE Date: 11/21/17 CLINICAL DIAGNOSIS: CHF ECHOCARDIOGRAPHIC MEASUREMENTS (adult normal given) AC root (d.<3.7cm) 2.9 cm LV Septum d (<1.2 cm> 1.4 cm Valve Excursion 1.5 cm LV Septum (systole) 1.5 cm Left Atria (s.<4.0cm> 4.0 cm LVPW d(<1.2cm) 1.1 cm RV (d.<2.3cm) 3.0 cm LVPW (sytole) 1.4 cm LV diastole(<5.6CM) 6.4 cm MV E-F(>70mm/sec) cm LV systole 5.2 cm LVOT Diameter 1.7 cm MV exc.(>10mm) cm Est.ejection fraction (50-75%) % DOPPLER: LVIT cm/sec A 62 cm/sec E 92 cm/sec LA cm/sec RVSP 25.5 mmHg LVOT 165 cm/sec AOP1/2T m/s Asc. Ao 148 cm/sec RVOT 37 cm/sec RA cm/sec PA 96 cm/sec AV Gradient Peak 8.8 mmHg AV Mean 4.2 mmHg AV Area 2.6 cm MV Gradient Peak 5.4 mmHg MV Mean 2.0 mmHg MV Area cm COMMENTS: Agriculture Consultant: Madalyn MOREJON Cigarette Lighter Repairer: 4 Dr. Waterman TAPE# PACS Pericardial Effusion N DATE OF SERVICE: PROCEDURE: Transthoracic echocardiogram. FINDINGS: 1. The left ventricle shows moderate concentric left ventricular hypertrophy. Inflow characteristics show pseudonormalization and diastolic dysfunction. The ejection fraction is 55% to 60%. 2. The left atrium is mildly dilated at 4 cm. 3. The aortic valve appears to be grossly normal with the exception of trace ECHOCARDIOGRAM REPORT [id number] JAMESON JAIN aortic insufficiency. 4. The mitral valve appears to be grossly normal. No obvious mitral regurgitation. 5. The tricuspid valve has trace tricuspid regurgitation. RVSP is normal. 6. The right ventricle appears to be normal in size, shape, and function. 7. The right atrium is mildly dilated. CONCLUSION: The patient has evidence of mild hypertensive heart disease. No obvious regional wall motion abnormalities. Mild dilatation of left atrium. TRANSINT:[id number] Voice Confirmation ID: [id number] DOCUMENT ID: [id number] MOISES WATERMAN MD at 0744 CC: [id number] DICTATION DATE: 11/22/17 1201 GEOTHERMAL POWERPLANT SUPERVISOR: 11/22/17 1827 DIS IN 11/24/[address] [facility] [address] [place] [address]
[2017-11-19 06:11] LABS: BASOPHILS 0.4 % (0-2); EOSINOPHILS 1.3 % (0-7); HEMATOCRIT 36.8 % (36.0-48.0); HEMOGLOBIN 12.1 g/dL (12-16); IMMATURE GRANULOCYTES 0.5 % (0-5); LYMPHOCYTES 10.3 % (15-50); MCH 28.5 pg (26.0-34.0); MCHC 32.9 g/dL (31.0-37.0); MCV 86.6 fL (80.0-100.0); MEAN PLATELET VOLUME 10.5 fL (7.4-10.4); MONOCYTES 4.9 % (2-11); NEUTROPHILS 82.6 % (40-80); PLATELET COUNT 216 10x3/uL (130-400); RBC 4.25 10x6/uL (4.00-5.40); RDW 14.3 % (11.5-14.5); WBC 11.3 10x3/uL (4.8-10.8)
[2017-11-19 06:26] LABS: ALBUMIN 3.3 g/dL (3.4-5.0); ALKALINE PHOSPHATASE 74 U/L (46-116); ALT (SGPT) 41 U/L (10-68); BILIRUBIN - TOTAL 0.29 mg/dL (0.2-1.3); CALC OSMOLALITY 282 mosm/kg (275-300); CALCIUM 8.6 mg/dL (8.5-10.1); CARBON DIOXIDE 25.2 mmol/L (21.0-32.0); CHLORIDE - SERUM 104 mmol/L (98-107); CREATININE - SERUM 0.9 mg/dL (0.6-1.3); POTASSIUM - SERUM 4.2 mmol/L (3.5-5.1); PROTEIN - SERUM 6.8 g/dL (6.4-8.2); SODIUM 137 mmol/L (136-145); UREA NITROGEN 15 mg/dL (7-18); eGFR NON AFRICAN AMERICAN 67 mL/min (90-120)
[2017-11-19 06:27] LABS: GLUCOSE 242 mg/dL (74-106)
[2017-11-19 06:37] LABS: CKMB 1.1 U/L (0.0-3.6); CREATINE KINASE 61 UL (21-215); MAGNESIUM - SERUM 1.9 mg/dL (1.8-2.4); PRO BNP 864 pg/mL (0-125)
[2017-11-20 05:35] VITALS: BP 122/49
[2017-11-20 05:46] LABS: CALC OSMOLALITY 275 mosm/kg (275-300); CALCIUM 8.2 mg/dL (8.5-10.1); CARBON DIOXIDE 24.7 mmol/L (21.0-32.0); CHLORIDE - SERUM 106 mmol/L (98-107); CREATININE - SERUM 0.8 mg/dL (0.6-1.3); GLUCOSE 117 mg/dL (74-106); SODIUM 138 mmol/L (136-145); UREA NITROGEN 11 mg/dL (7-18); eGFR NON AFRICAN AMERICAN 76 mL/min (90-120)
[2017-11-20 06:26] LABS: BASOPHILS 0.1 % (0-2); EOSINOPHILS 0 % (0-7); HEMATOCRIT 34.5 % (36.0-48.0); HEMOGLOBIN 11.3 g/dL (12-16); IMMATURE GRANULOCYTES 0.5 % (0-5); LYMPHOCYTES 15.2 % (15-50); MCH 28.1 pg (26.0-34.0); MCHC 32.8 g/dL (31.0-37.0); MCV 85.8 fL (80.0-100.0); MEAN PLATELET VOLUME 10.3 fL (7.4-10.4); MONOCYTES 11.3 % (2-11); NEUTROPHILS 72.9 % (40-80); PLATELET COUNT 206 10x3/uL (130-400); RBC 4.02 10x6/uL (4.00-5.40); RDW 14.4 % (11.5-14.5); WBC 10.3 10x3/uL (4.8-10.8)
[2017-11-20 08:19] VITALS: BP 150/83
[2017-11-20 11:50] VITALS: BP 129/61
[2017-11-20] MEDS ORDERED: ALBUTEROL SULF8.5 GM INH (12:49)
[2017-11-20] MEDS ORDERED: CARDURA2 MG PO (13:04)
[2017-11-20] MEDS ORDERED: RANITIDINE HCL150 M1 PO (13:05)
[2017-11-20] MEDS ORDERED: NITROSTAT0.4 MG SL (13:08)
[2017-11-20] MEDS ORDERED: COZAAR25 MG PO (13:10)
[2017-11-20 14:02] VITALS: Ht 165.1 cm; Wt 110.1 kg
[2017-11-20 14:30] LABS: T4 THYROXIN - FREE 1.31 ng/dL (0.76-1.46); THYROID STIMULATING HORMONE 0.48 uIU/mL (0.36-3.74)
[2017-11-20 15:41] VITALS: BP 147/67
[2017-11-20 20:00] VITALS: BP 110/42
[2017-11-21 04:59] VITALS: BP 109/34
[2017-11-21 06:47] LABS: BASOPHILS 0.5 % (0-2); EOSINOPHILS 1.5 % (0-7); HEMATOCRIT 32.3 % (36.0-48.0); HEMOGLOBIN 10.4 g/dL (12-16); IMMATURE GRANULOCYTES 0.5 % (0-5); LYMPHOCYTES 22.7 % (15-50); MCHC 32.2 g/dL (31.0-37.0); MCV 87.1 fL (80.0-100.0); MEAN PLATELET VOLUME 10.2 fL (7.4-10.4); MONOCYTES 12.4 % (2-11); NEUTROPHILS 62.4 % (40-80); PLATELET COUNT 191 10x3/uL (130-400); RBC 3.71 10x6/uL (4.00-5.40); RDW 14.6 % (11.5-14.5); WBC 8.2 10x3/uL (4.8-10.8)
[2017-11-21 07:16] LABS: ANION GAP 8.9 mmol/L (8-16); CALCIUM 8.1 mg/dL (8.5-10.1); CARBON DIOXIDE 27.4 mmol/L (21.0-32.0); CREATININE - SERUM 0.9 mg/dL (0.6-1.3); POTASSIUM - SERUM 4.3 mmol/L (3.5-5.1)
[2017-11-21 08:00] VITALS: BP 141/59
[2017-11-21 11:37] VITALS: BP 114/51
[2017-11-21 15:32] VITALS: BP 111/57
[2017-11-21 21:10] VITALS: BP 125/56
[2017-11-22 04:30] VITALS: BP 149/51
[2017-11-22 05:34] LABS: BASOPHILS 0.5 % (0-2); HEMATOCRIT 34.3 % (36.0-48.0); HEMOGLOBIN 11.1 g/dL (12-16); IMMATURE GRANULOCYTES 0.7 % (0-5); LYMPHOCYTES 10.7 % (15-50); MCH 28.1 pg (26.0-34.0); MCHC 32.4 g/dL (31.0-37.0); MCV 86.8 fL (80.0-100.0); MEAN PLATELET VOLUME 10.2 fL (7.4-10.4); NEUTROPHILS 73.1 % (40-80); PLATELET COUNT 192 10x3/uL (130-400); RBC 3.95 10x6/uL (4.00-5.40); RDW 14.1 % (11.5-14.5)
[2017-11-22 05:39] LABS: WBC 10.5 10x3/uL (4.8-10.8)
[2017-11-22 05:48] LABS: ANION GAP 10.2 mmol/L (8-16); CALCIUM 8.5 mg/dL (8.5-10.1); CARBON DIOXIDE 30.8 mmol/L (21.0-32.0); CREATININE - SERUM 0.9 mg/dL (0.6-1.3)
[2017-11-22 15:35] VITALS: BP 121/42
[2017-11-22 20:00] VITALS: BP 128/51
[2017-11-23 04:00] VITALS: BP 141/66
[2017-11-23 06:21] LABS: BASOPHILS 0.5 % (0-2); EOSINOPHILS 3.1 % (0-7); HEMOGLOBIN 11.4 g/dL (12-16); IMMATURE GRANULOCYTES 0.5 % (0-5); LYMPHOCYTES 21.1 % (15-50); MCH 28.2 pg (26.0-34.0); MCHC 32.6 g/dL (31.0-37.0); MCV 86.6 fL (80.0-100.0); MEAN PLATELET VOLUME 10.2 fL (7.4-10.4); MONOCYTES 10.9 % (2-11); NEUTROPHILS 63.9 % (40-80); PLATELET COUNT 199 10x3/uL (130-400); RBC 4.04 10x6/uL (4.00-5.40); RDW 14.2 % (11.5-14.5)
[2017-11-23 06:30] LABS: WBC 6.2 10x3/uL (4.8-10.8)
[2017-11-23 06:34] LABS: CALC OSMOLALITY 280 mosm/kg (275-300); CALCIUM 8.4 mg/dL (8.5-10.1); CARBON DIOXIDE 30.8 mmol/L (21.0-32.0); CHLORIDE - SERUM 103 mmol/L (98-107); CREATININE - SERUM 0.8 mg/dL (0.6-1.3); GLUCOSE 109 mg/dL (74-106); SODIUM 140 mmol/L (136-145); UREA NITROGEN 14 mg/dL (7-18); eGFR NON AFRICAN AMERICAN 76 mL/min (90-120)
[2017-11-23 08:32] VITALS: BP 143/68
[2017-11-23 10:55] VITALS: BP 107/42
[2017-11-23 15:20] VITALS: BP 112/48
[2017-11-23 22:10] VITALS: BP 143/82
[2017-11-24] VITALS: BP 141/59
[2017-11-24 04:29] LABS: BASOPHILS 0.9 % (0-2); EOSINOPHILS 3.3 % (0-7); HEMATOCRIT 36.7 % (36.0-48.0); HEMOGLOBIN 12.2 g/dL (12-16); IMMATURE GRANULOCYTES 0.4 % (0-5); LYMPHOCYTES 25.6 % (15-50); MCH 28.6 pg (26.0-34.0); MCHC 33.2 g/dL (31.0-37.0); MCV 86.2 fL (80.0-100.0); MEAN PLATELET VOLUME 10.2 fL (7.4-10.4); MONOCYTES 11.7 % (2-11); NEUTROPHILS 58.1 % (40-80); PLATELET COUNT 230 10x3/uL (130-400); RBC 4.26 10x6/uL (4.00-5.40); WBC 6.7 10x3/uL (4.8-10.8)
[2017-11-24 04:43] LABS: ANION GAP 10.4 mmol/L (8-16); CALCIUM 9.1 mg/dL (8.5-10.1); CARBON DIOXIDE 32.6 mmol/L (21.0-32.0); CREATININE - SERUM 0.9 mg/dL (0.6-1.3)
[2017-11-24 04:44] VITALS: BP 131/77
[2017-11-24 08:23] VITALS: BP 151/66
[2017-11-24] MEDS ORDERED: BETAPACE 120 M120 MG PO (11:54)
[2017-11-24 12:00] VITALS: BP 136/70
[2017-11-24] MEDS ORDERED: ZITHROMAX250 MG PO (12:03)
[2017-11-24] MEDS ORDERED: OMNICEF300 MG PO (12:04)
== END 2017-11-24 18:11 | disposition home or self-care (01) | DRG 193 ==
LOC: D.ER 05:52 → D.EDHOLD 08:36 → D.M2 08:36
PROVIDERS: Family Medicine; Internal Medicine Nephrology
DX: J18.9 Pneumonia, unspecified organism (principal); I50.33 Acute on chronic diastolic (congestive) heart failure; J44.0 Chronic obstructive pulmonary disease with (acute) lower respiratory infection; J44.1 Chronic obstructive pulmonary disease with (acute) exacerbation; I48.91 Unspecified atrial fibrillation; I11.0 Hypertensive heart disease with heart failure; D64.9 Anemia, unspecified; E03.9 Hypothyroidism, unspecified; R73.9 Hyperglycemia, unspecified; E78.5 Hyperlipidemia, unspecified; I25.10 Atherosclerotic heart disease of native coronary artery without angina pectoris; Z95.1 Presence of aortocoronary bypass graft; K21.9 Gastro-esophageal reflux disease without esophagitis; G47.33 Obstructive sleep apnea (adult) (pediatric)

== ENCOUNTER 2018-03-29 16:55 | Observation (INO) | payer MEDICARE, MEDICAID ==
[~2018-03-29] VITALS: Ht 165.1 cm; Wt 107.7 kg
--- NOTE | ~2018-03-29 | HEMODYNAMI ---
PATIENT:JAMESON JAIN MEDICAL RECORD: [id number] : 51 LOCATION:[facility] D.[address] [facility]# [id number] ADMISSION DATE: 03/29/18 Generatedon:03/30/201815:32 Patient name: JAMESON JAIN Patient #: [id number] : 1955 Date of study: 03/30/2018 Page: Of Hemodynamic Procedure Report Patient Data Patient Demographics Procedure consent was obtained First Name: JAMESON Gender: Female Last Name: SUSY : 1955 [facility] Initial: L Age: 62 year(s) Patient #: [id number] Race: SSN: [id number] Additional ID: [id number] Contact details [address]: [address] [place] [address] State: [place] City: [place] Zip code: [address] Past Medical History Allergies Allergen Reaction Date Comments Reported Other allergy 03/30/2015 Sulfa Other allergy 05/23/2016 Sulfa Sulfa drugs 03/30/2018 Admission Admission Data Admission Date: 03/29/2018 Admission Time: 19:12 Room #: D.2121 Procedure Procedure Types Cath Procedure Diagnostic Procedure LHC LHC w/Coronaries Procedure Description Procedure Date Procedure Date: 03/30/2018 Procedure Start Time: 15:17 Procedure End Time: 15:31 Procedure Staff Name Function Xu Briggs MD Performing Physician Asad Sanabria RT Monitor Wilfredo Bajwa RN Nurse Leann James RT Scrub Procedure Data Cath Procedure Fluoroscopy Diagnostic fluoroscopy Total fluoroscopy Time: 1.4 time: 1.4 min min Diagnostic fluoroscopy Total fluoroscopy dose: 679 dose: 679 mGy mGy Contrast Material Contrast Material Type Amount (ml) Isovue 300 84 Entry Location Entry Primary Successful Side Size Upsize Upsize Entry Closure Succes sful Closure Location (Fr) 1 (Fr) 2 (Fr) Remarks Device Remarks Femoral Right 5 Fr Exoseal artery Diagnostic catheters Device Type Used For End Catheter Placement MULTIPACK JL 4.0 5Fr Left Coronary catheter Angiography MULTIPACK 3DRC 5Fr Right Coronary catheter Angiography MULTIPACK Pigtail 5 Fr LV Angiography catheter Procedure Complications No complications Procedure Medications Medication Administration Route Dosage Oxygen etCO2 Nasal cannula 2 l/min Heparin Flush Bag added to field 2 bags (1000units/500ml NS) 0.9% NaCl I.V. 100 ml/hr Lidocaine 2% added to field 20 Fentanyl I.V. 50 mcg Versed I.V. 1 mg Versed I.V. 1 mg Fentanyl I.V. 50 mcg Fentanyl I.V. 50 mcg Hemodynamics Rest Heart Rate: 119 (bpm) Pressure Samples Time Site Value (mmHg) Purpose Heart Use Rate(bpm) 15:25 LV 169/1,31 EDP 113 15:26 LV 169/52,30 Snapshot 76 Gradients Valve Time Site Site Mean SEP/DFP Peak To Heart Use 1 2 (mmHg) (sec/min) Peak Rate (mmHg) (bpm) Aortic 15:26 LV AO 44 Snapshots Pre Cath Intra NCS Post Cath Vital Signs Time Heart Resp SPO2 etCO2 NIBP (mmHg) Rhythm Pain Sedation Rate (ipm) (%) (mmHg) Status Level (bpm) 15:06:13 94 20 98 41 165/90(135) NSR 0 (11) 10(A) , No pain 15:11:12 108 22 98 38 Measuring NSR 0 (11) 10(A) , No pain 15:11:25 101 20 98 30.6 148/76(112) NSR 0 (11) 10(A) , No pain 15:15:33 109 24 98 29.1 139/85(116) NSR 0 (11) 10(A) , No pain 15:19:47 112 19 96 41 132/79(106) NSR 0 (11) 9(A) , No pain 15:23:57 115 18 96 12.6 129/65(92) NSR 0 (11) 9(A) , No pain 15:28:12 113 17 98 39.5 136/76(113) NSR 0 (11) 9(A) , No pain Medications Time Medication Route Dose Verified Delivered Reason Notes Effe ctiveness by by 15:08:19 Oxygen etCO2 2 Xu Wilfredo Per Nasal l/min Chester Bajwa RN physician cannula 15:08:27 Heparin Flush added 2 Xu Wilfredo used for Bag to bags Chester Bajwa creative writer (1000units/500ml field NS) 15:08:36 0.9% NaCl I.V. 100 Xu Wilfredo Per ml/hr Chester Bajwa RN physician 15:08:45 Lidocaine 2% added 20ml Xu Wilfredo used for to vial Chester Bajwa creative writer field 15:14:35 Fentanyl I.V. 50 Xu Wilfredo for mcg Chester Bajwa RN sedation 15:14:42 Versed I.V. 1 mg Xu Wilfredo for Chester Bajwa RN sedation 15:19:06 Versed I.V. 1 mg Xu Wilfredo for Chester Bajwa RN sedation 15:19:16 Fentanyl I.V. 50 Xu Wilfredo for mcg Chester Bajwa RN sedation 15:25:48 Fentanyl I.V. 50 Xu Wilfredo for [facility] Chester Bajwa RN sedation Procedure Log Time Note 14:40:36 Asad Suit RT(R) sent for patient. Start room use. 14:46:38 Time tracking: Regular hours (M-F 7:00 - 5:00) 14:46:41 Plan of Care:Hemodynamics will remain stable., Cardiac rhythm will remain stable., Comfort level will be maintained., Respiratory function will remain adequate., Patient/ family verbilizes understanding of procedure., Procedure tolerated without complication., Recovers from procedure without complications.. 14:53:26 Patient received from PCU to CCL 2 Alert and oriented. Tansferred to table in Supine position. 14:53:27 Warm blankets applied, and yolanda hugger turned on for patient comfort. 14:53:28 Correct patient and procedure confirmed by team. 14:53:29 Signed procedure consent form obtained from patient. 14:53:30 ECG and BP/O2 sat monitors applied to patient. 14:53:31 Full Disclosure recording started 15:04:58 Vital chart was started 15:05:42 Baseline sample Acquired. 15:05:45 Rhythm: sinus rhythm 15:05:51 H&P Date Dictated: 03/30/2018 Within 30 days and on chart.. 15:05:51 Pre-procedure instructions explained to patient. 15:05:52 Pre-op teaching completed and patient verbalized understanding. 15:05:57 Family in patients room. 15:05:59 Patient NPO since Midnight. 15:06:12 Patient allergic to Sulfa drugs 15:06:24 Is the patient allergic to Iodine/contrast media? No. 15:06:29 Is patient on blood thinner?Yes 15:06:32 ACC The patient was administered the following blood thiners within the last 24 hours: ACCPlavix 15:08:19 Oxygen 2 l/min etCO2 Nasal cannula was administered by iWlfredo Bajwa RN; Per physician; 15:08:27 Heparin Flush Bag (1000units/500ml NS) 2 bags added to field was administered by Wilfredo Bajwa RN; used for procedure; 15:08:36 0.9% NaCl 100 ml/hr I.V. was administered by Wilfredo Bajwa RN; Per physician; 15:08:45 Lidocaine 2% 20ml vial added to field was administered by Wilfredo Bajwa RN; used for procedure; 15:10:38 Patient diabetic? No. 15:10:41 ----Pre-sedation anethsthesia assessment.---- 15:10:44 Previous problem with sedation/anesthesia? No ? 15:10:46 Snore? Yes 15:10:47 Sleep apnea? Yes 15:10:49 Deviated septum? No 15:10:50 Opens mouth fully? Yes 15:10:51 Sticks out tongue? Yes 15:10:55 Airway obstruction? Yes COPD 15:10:58 Dentures? No ? 15:11:03 Pre procedure: right dorsailis pedis pulse 1+ Palpable, but thready & weak; easily obliterated 15:11:14 Patient pain scale 0/10 0. 15:11:20 IV patent on arrival in right hand with 0.9% NaCl at 10ml/hr. 15:11:23 Lab results completed and on chart. 15:11:28 Right groin area was prepped with chlora-prep and draped in sterile fashion 15::29 Alarms reviewed by R. N. 15:11:29 Sharps counted by scrub and verified by R.N. 15:11:32 Physician arrived 15:13:01 --------ALL STOP TIME OUT------ 15:13:02 Final Timeout: patient, procedure, and site verified with staff and physician. All members of the team are in agreement. 15:13:04 Right groin site verified by team. 15:13:08 Fire Safety Assessment: A--An alcohol-based skin anteseptic being used preoperatively., C--Open oxygen or nitrous oxide is being used., D--An ESU, laser, or fiber-optic light is being used. 15:13:13 Physical assessment completed. ASA score P 2 - A patient with mild systemic disease as per Xu Briggs MD. 15:13:17 Sedation plan: IV Moderate Sedation Medication:Versed, Fentanyl 15:14:35 Fentanyl 50 mcg I.V. was administered by Wilfredo Bajwa RN; for sedation; 15:14:42 Versed 1 mg I.V. was administered by Wilfredo Bajwa RN; for sedation; 15:15:00 Use device set Femoral Dx 15:15:01 ACIST Syringe (98908) opened to sterile field. 15:15:01 Bag Decanter (2002S) opened to sterile field. 15:15:01 Medline Cath Pack ([id number]) opened to sterile field. 15:15:02 DIAGNOSTIC WIRE .035 260cm J wire (664070) opened to sterile field. 15:15:03 ACIST Hand Control (48137) opened to sterile field. 15:15:04 ACIST Manifold (13952) opened to sterile field. 15:15:04 DIAGNOSTIC Multipack 5Fr catheter set (XR1368) opened to sterile field. 15:15:04 Tegaderm 4 x 4 (1626W) opened to sterile field. 15:15:10 SHEATH 5FR [place] (CLL086) opened to sterile field. 15:17:37 Procedure started. 15:17:40 Local anesthetic to right femoral artery with Lidocaine 2% by Xu Briggs MD.INITIAL ACCESS ONLY 15:17:47 A 5 Fr sheath was inserted into the Right Femoral artery 15:19:06 Versed 1 mg I.V. was administered by Wilfredo Bajwa RN; for sedation; 15:19:12 Zero performed for pressure channel P1 15:19:16 Fentanyl 50 mcg I.V. was administered by Wilfredo Bajwa RN; for sedation; 15:21:05 A MULTIPACK JL 4.0 5Fr catheter was advanced over the wire and used for Left Coronary Angiography. 15:21:19 LCA angiography performed. 15:22:58 Catheter exchanged over wire. 15:23:25 A MULTIPACK 3DRC 5Fr catheter was advanced over the wire and used for Right Coronary Angiography. 15:23:48 RCA angiography performed. 15:24:40 Catheter exchanged over wire. 15::48 A MULTIPACK Pigtail 5 Fr catheter was advanced over the wire and used for LV Angiography. 15:24:57 LV angiography performed. 15::48 Fentanyl 50 mcg I.V. was administered by Wilfredo Bajwa RN; for sedation; 15:26:20 EF : 50 % 15::33 Catheter exchanged over wire. 15::45 Sheath removed intact; hemostasis achieved with Exoseal to the Right Femoral artery. 15:26:53 Procedure ended.(Physican Out) 15:27:31 Contrast amount:Isovue 300 84ml. 15:27:33 Fluoroscopy time 01.40 minutes. 15:28:42 Flurop Dose total: 679 15::42 Fluoroscopy dose: 679 mGy 15:29:29 Sharps counted by scrub and verified by R.N. 15:29:43 Insertion/operative site no bleeding no hematoma. 15:29:46 Post-op/insertion site Right Femoral artery dressed using a 4 x 4 and Tegaderm. 15:30:02 Post right femoral artery:stable 15:30:03 Post Procedure Pulses reassessed and unchanged 15:30:06 Post procedure: right dorsailis pedis pulse 1+ Palpable, but thready & weak; easily obliterated. 15:30:11 Post procedure rhythm: sinus rhythm 15:30:12 Post procedure instruction explained to patient.Patient verbalizes understanding. 15:30:14 Procedure and supply charges have been captured, reviewed, submitted and are correct. 15:30:36 EXOSEAL 5Fr (EX500) opened to sterile field. 15:30:52 Procedure Complication : No complications 15:30:55 Vital chart was stopped 15:30:56 See physician's report for complete and final results. 15:30:58 Report given to PCU. 15:31:01 Patient transfered to PCU with Bed. 15:31:03 Procedure ended. 15:31:03 Full Disclosure recording stopped 15:31:07 End room use (Document Last) Device Usage Item Name Manufacture Quantity Catalog Hospital Part Current Minimal L ot# / Number Charge Number Stock Stock Serial# Code ACIST Acist 1 19030 429431 009251 945990 20 Syringe Medical (89823) Systems Inc Bag Microtek 1 2001S 153469 76084 841198 5 Decanter Medical Inc. () Medline Medline 1 [id number] 031878 55402 194289 5 Cath Pack ([id number]) DIAGNOSTIC St [place] 1 000262 478368 791419 552510 30 WIRE .035 260cm J wire (339537) ACIST Hand Acist 1 26272 746921 788820 569083 5 Control Medical (88208) Systems Inc ACIST Acist 1 56935 421658 976500 157014 5 Manifold Medical (58448) Systems Inc DIAGNOSTIC Cardinal 1 PB6534 330938 99770 791372 30 Multipack Health 5Fr catheter set (DI5310) Tegaderm 4 3M 1 1626W 548055 112211 529899 5 x 4 (1626W) SHEATH 5FR Terumo 1 LGW290 459882 576814 513269 5 [place] (IGI473) MULTIPACK Cardinal 1 200477 5 JL 4.0 5Fr Health catheter MULTIPACK Cardinal 1 571639 5 3DRC 5Fr Health catheter MULTIPACK Cardinal 1 890501 5 Pigtail 5 Health Fr catheter EXOSEAL 5Fr Cardinal 1 EX500 121569 367812 378616 10 (EX500) Health Signature Audit [place] Stage Time Signature Unsigned Intra-Procedure 03/30/2018 Asad Sanabria RT(R) 3:32:22 PM Signatures Monitor : Asad Sanabria RT Signature : Date : Time : [facility] [address] [place] [address]
[~2018-03-29 16:55] MED LIST changes: +ALBUTEROL SULF8.5 GM INH; +BETAPACE 120 M120 MG PO; +CARDURA2 MG PO; +COZAAR25 MG PO; +OMNICEF300 MG PO; +RANITIDINE HCL150 M1 PO; +ZITHROMAX250 MG PO
[2018-03-29 17:02] VITALS: BP 188/69
[2018-03-29 17:24] LABS: BASOPHILS 0.7 % (0-2); EOSINOPHILS 1.5 % (0-7); HEMATOCRIT 36.9 % (36.0-48.0); IMMATURE GRANULOCYTES 0.2 % (0-5); LYMPHOCYTES 17.5 % (15-50); MCH 28.2 pg (26.0-34.0); MCHC 32.5 g/dL (31.0-37.0); MCV 86.6 fL (80.0-100.0); MEAN PLATELET VOLUME 10.1 fL (7.4-10.4); MONOCYTES 7.7 % (2-11); NEUTROPHILS 72.4 % (40-80); PLATELET COUNT 209 10x3/uL (130-400); RBC 4.26 10x6/uL (4.00-5.40); RDW 14.3 % (11.5-14.5); WBC 9.4 10x3/uL (4.8-10.8)
[2018-03-29 17:36] LABS: APTT 27.8 SECONDS (22.8-39.4); INR 1.1 (0.85-1.17); PROTIME 13.7 SECONDS (11.6-15.0)
[2018-03-29 17:40] LABS: ALBUMIN 3.3 g/dL (3.4-5.0); ALKALINE PHOSPHATASE 57 U/L (46-116); ALT (SGPT) 17 U/L (10-68); BILIRUBIN - TOTAL 0.33 mg/dL (0.2-1.3); CALC OSMOLALITY 283 mosm/kg (275-300); CALCIUM 9.2 mg/dL (8.5-10.1); CARBON DIOXIDE 30.6 mmol/L (21.0-32.0); CHLORIDE - SERUM 103 mmol/L (98-107); CREATININE - SERUM 0.9 mg/dL (0.6-1.3); GLUCOSE 132 mg/dL (74-106); POTASSIUM - SERUM 3.8 mmol/L (3.5-5.1); PROTEIN - SERUM 6.7 g/dL (6.4-8.2); SODIUM 139 mmol/L (136-145); UREA NITROGEN 23 mg/dL (7-18); eGFR NON AFRICAN AMERICAN 67 mL/min (90-120)
[2018-03-29 17:58] LABS: CKMB 3.8 U/L (0.0-3.6); CREATINE KINASE 66 UL (21-215)
--- NOTE | 2018-03-29 19:47 | NUR ---
REPORT RECEIVED FROM REGAN WANG.
[2018-03-29 20:00] VITALS: BP 143/55
[2018-03-29 23:14] VITALS: Ht 165.1 cm; Wt 107.7 kg
[2018-03-30] VITALS: BP 138/82
[2018-03-30 03:22] LABS: BASOPHILS 0.5 % (0-2); EOSINOPHILS 2.2 % (0-7); HEMATOCRIT 35.3 % (36.0-48.0); HEMOGLOBIN 11.4 g/dL (12-16); IMMATURE GRANULOCYTES 0.2 % (0-5); LYMPHOCYTES 20.9 % (15-50); MCH 27.9 pg (26.0-34.0); MCHC 32.3 g/dL (31.0-37.0); MCV 86.3 fL (80.0-100.0); MEAN PLATELET VOLUME 9.7 fL (7.4-10.4); MONOCYTES 11.4 % (2-11); NEUTROPHILS 64.8 % (40-80); PLATELET COUNT 186 10x3/uL (130-400); RBC 4.09 10x6/uL (4.00-5.40); RDW 14.1 % (11.5-14.5); WBC 8.3 10x3/uL (4.8-10.8)
[2018-03-30 03:54] LABS: CALC OSMOLALITY 285 mosm/kg (275-300); CALCIUM 8.6 mg/dL (8.5-10.1); CARBON DIOXIDE 28.6 mmol/L (21.0-32.0); CHLORIDE - SERUM 106 mmol/L (98-107); CREATININE - SERUM 0.8 mg/dL (0.6-1.3); GLUCOSE 109 mg/dL (74-106); POTASSIUM - SERUM 4.3 mmol/L (3.5-5.1); SODIUM 142 mmol/L (136-145); UREA NITROGEN 18 mg/dL (7-18); eGFR NON AFRICAN AMERICAN 76 mL/min (90-120)
[2018-03-30 03:56] LABS: TROPONIN-I 4.383 ng/mL (0.000-0.060)
[2018-03-30 05:20] VITALS: BP 148/76
--- NOTE | 2018-03-30 07:20 | NUR ---
ASSESSMENT COMPLETED. ALERT AND ORIENTED. TELEMERTY SHOWS SR. 02 AT 2 L/M PER NC. RIGHT WRIST WITH HEPARIN AT 9. PT IS UP AB GUERLINE. NPO FOR CATH. PERMITS SIGNED WILL MONITOR
[2018-03-30 08:40] LABS: CALC OSMOLALITY 281 mosm/kg (275-300); CALCIUM 8.7 mg/dL (8.5-10.1); CARBON DIOXIDE 26.6 mmol/L (21.0-32.0); CHLORIDE - SERUM 104 mmol/L (98-107); CREATININE - SERUM 0.7 mg/dL (0.6-1.3); GLUCOSE 130 mg/dL (74-106); POTASSIUM - SERUM 4.3 mmol/L (3.5-5.1); SODIUM 140 mmol/L (136-145); UREA NITROGEN 15 mg/dL (7-18); eGFR NON AFRICAN AMERICAN 89 mL/min (90-120)
[2018-03-30 09:17] VITALS: BP 153/65
[2018-03-30 11:46] VITALS: BP 142/52
--- NOTE | 2018-03-30 18:43 | NUR ---
PT LYING QUIETLY. RIGHT GROIN SOFT WITH DRSG DRY AND INTACT. TELEMERTY SHOWS CAF
--- NOTE | 2018-03-30 19:30 | NUR ---
RESUMING PATIENT CARE. PATIENT SLEEPING. RESPIRATIONS ARE EVEN AND UNLABORED. NO S/S OF DISTRESS. CALL LIGHT WITHIN REACH. PATIENT BOARD UPDATED. CALL LIGHT WITHIN REACH.
[2018-03-30 20:00] VITALS: BP 136/45
[2018-03-31 00:06] VITALS: BP 148/61
[2018-03-31 04:00] VITALS: BP 137/46
[2018-03-31 07:47] VITALS: BP 128/42
--- NOTE | 2018-03-31 09:17 | NUR ---
PTS L.WRIST PIV INFILTRATED D/C WITH CATHETER TIP FULLY INTACT. PT HAD CARDIZEM INFUSING BUT IS INQUIRING ABOUT DISCHARGING. PT REMAINS IN A CONTROLLED FIB. PAGED AND HE STATES PT IS OKAY TO DISCHARGE AND WE CAN RESUME PTS HOME MEDICATIONS. PT VOICED THANKS AND IS EXCITED TO HEAR THE NEWS. WILL BEGIN DISCHARGE WORKUP. NO FURTHER NEEDS AT THIS TIME. WILL CTM.
[2018-03-31 11:10] VITALS: BP 111/48
--- NOTE | 2018-03-31 11:53 | MORECARE ---
CASE MANAGEMENT DISCHARGE SUMMARY PATIENT: JAMESON JAIN UNIT: [id number] ADM DATE: 03/29/18 AGE: 62 : 53 SEX: F ROOM/BED: D.2121 AUTHOR: ERIN DOCKERY PHYSICIAN: REFERRING PHYSICIAN: GIOVANNA HERNANDEZ M.D. DATE OF SERVICE: 03/31/18 Discharge Plan Patient Name: JAMESON JAIN Facility: [facility]:[place] : 1955 Planned Disposition: Home Anticipated Discharge Date: 03/31/18 Discharge Date: Expected LOS: 2 Initial Reviewer: [email or web address] Initial Review Date: 03/31/2018 Generated: 03/31/18 12:52 pm Coverage Notice Reviewer: [email or web address] Mitch Walls Notice Issued Date-Time: 03/30/2018 15:08 Notice Type: Medicare Outpatient Observation Notice Notice Delivered To: Relationship to Patient: Motor Vehicles Supervisor Name: Delivery Method: - Hilaria Days: Prior Verbal Notification: Recipient Understood Notice: Recipient Signature: Med Rec Note Co-signed by Attending: Coverage Notice Comment: ATTEMPTED TO DELIVER THE WAITE TO THE PATIENT, AND PER BEDSIDE NURSE HAD JUST BEEN TAKEN TO THE DRAFTER AUTOMOTIVE DESIGN LAYOUT FOR PROCEDURE AND FAMILY WENT WITH HER. WILL ATTEMPT AGAIN LATER. Patient Name: JAMESON JAIN Page [phone] at 1153 All edits/amendments must be made on the electronic document DICTATION DATE: 03/31/18 1152 FORESTRY SUPPORT SPECIALIST: ROXANNE 03/31/18 1152 RPT#: [id number] DC DATE: STATUS: ADM IN [facility] [address] [place] [address] END OF REPORT
--- NOTE | 2018-03-31 12:00 | MORECARE ---
CASE MANAGEMENT DISCHARGE SUMMARY PATIENT: JAMESON JAIN UNIT: [id number] ADM DATE: 03/29/18 AGE: 62 : 53 SEX: F ROOM/BED: D.6167 AUTHOR: SARKIS,DOC PHYSICIAN: REFERRING PHYSICIAN: GIOVANNA HERNANDEZ M.D. DATE OF SERVICE: 03/31/18 Discharge Plan Patient Name: JAMESON JAIN Facility: [facility]:[place] : 1955 Planned Disposition: Home Anticipated Discharge Date: 03/31/18 Discharge Date: Expected LOS: 2 Initial Reviewer: [email or web address] Initial Review Date: 03/31/2018 Generated: 03/31/18 1:00 pm DCPIA - Discharge Planning Initial Assessment Updated by [email or web address]: Josue Sal on 03/31/18 11:56 am * Is the patient Alert and Oriented? Yes * How many steps to enter\exit or inside your home? * PCP DR. MUNOZ * Pharmacy [facility] * Preadmission Environment Home with Family * ADLs Independent * Equipment Nebulizer Oxygen Walker * Other Equipment HOME AND PORTABLE OXYGEN [facility] * List name and contact numbers for known caregivers / representatives who currently or will assist patient after discharge: SAAD GLEASON, DAUGHTER, * Verbal permission to speak to the caregivers and representatives has been obtained from the patient. N/A * Community resources currently utilized None * Please name any agencies selected above. NONE * Additional services required to return to the preadmission environment? No * Can the patient safely return to the preadmission environment? Yes * Has this patient been hospitalized within the prior 30 days at any hospital? Yes Coverage Notice Reviewer: [email or web address] - Gaviota [place] Notice Issued Date-Time: 03/30/2018 15:08 Notice Type: Medicare Outpatient Observation Notice Notice Delivered To: Relationship to Patient: Accountancy Professor Name: Delivery Method: - Hilaria Days: Prior Verbal Notification: Recipient Understood Notice: Recipient Signature: Med Rec Note Co-signed by Attending: Coverage Notice Comment: ATTEMPTED TO DELIVER THE WAITE TO THE PATIENT, AND PER BEDSIDE NURSE HAD JUST BEEN TAKEN TO THE WIRE COILER MACHINE OPERATOR FOR PROCEDURE AND FAMILY WENT WITH HER. WILL ATTEMPT AGAIN LATER. Last DP export: 03/31/18 10:52 am Patient Name: JAMESON JAIN Page [phone] at 1200 All edits/amendments must be made on the electronic document DICTATION DATE: 03/31/181158 LAY OUT INSPECTOR: ROXANNE 03/31/181158 RPT#: [id number] DC DATE: STATUS: ADM IN [facility] [address] [place] [address] END OF REPORT
--- NOTE | 2018-03-31 12:07 | MORECARE ---
CASE MANAGEMENT DISCHARGE SUMMARY PATIENT: JAMESON JAIN UNIT: [id number] ADM DATE: 03/29/18 AGE: 62 : 53 SEX: F ROOM/BED: D.1200 AUTHOR: SARKIS,DOC PHYSICIAN: REFERRING PHYSICIAN: GIOVANNA HERNANDEZ M.D. DATE OF SERVICE: 03/31/18 Discharge Plan Patient Name: JAMESON JAIN Facility: [facility]:[place] : 1955 Planned Disposition: Home Anticipated Discharge Date: 03/31/18 Discharge Date: Expected LOS: 2 Initial Reviewer: [email or web address] Initial Review Date: 03/31/2018 Generated: 03/31/18 1:07 pm Comments DCP- Discharge Planning Updated by [email or web address]: Josue Sal on 03/31/18 11:[address] Patient Name: JAMESON JAIN Encounter No: [id number] : 1955 Primary Insurance: [employer] [facility] PF Anticipated DC Date: 03-31-2018 Planned Disposition: Home DISCHARGE PLANNING NOTE: CM SPOKE TO MACHINE LEAD BURNER ESTEBAN PRABHAKAR WHO INFORMED CM THAT CM IS TO CALL FOR [employer]AX[employer] TO TRANSPORT PT HOME, ESTEBAN PROVIDED ADMINISTRATIVE APPROVAL. CM MET WITH PT IN ROOM TO DISCUSS DISCHARGE PLANNING AND NEEDS. PT REPORTS LIVING AT HOME INDEPENDENTLY WITH HER ELDERLY MOTHER. PT HAS WALKER, NEBULIZER AND HOME AND PORTABLE OXYGEN. PT HAS BEEN WEARING OXYGEN AT NIGHT AND NEEDED ONLY. MEDICAL EQUIPMENT PROVIDER IS [facility]. PT HAS NO OUTSIDE SERVICES ASSISTING IN THE HOME. CM DISCUSSED AVAILABILITY OF HOME HEALTH, REHAB SERVICES AND MEDICAL EQUIPMENT. PT DENIES DISCHARGE NEEDS, REPORTS HER DAUGHTER CANNOT PICK HER UP FOR DISCHARGE HOME UNTIL 4PM TODAY. PT HAS NO ONE ELSE TO CALL FOR A RIDE HOME. CM INFORMED PT THAT MACHINE LEAD BURNER WHO PT MET A FEW MINUTES AGO HAS AUTHORIZED THE HOSPITAL PAY FOR TAXI TO GET PT HOME. PT ACCEPTS. PT HAS NOT YET BEEN SIGNED OUT FOR DISCHARGE. CM NOTIFIED BEDSIDE NURSE OF PLAN, FOR NURSE TO NOTIFY CM WHEN PT IS SIGNED OUT AND READY TO BE WHEELED TO FRONT DOOR, CM WILL CALL FOR TAXI SERVICE APPROVED BY MACHINE LEAD BURNER ESTEBAN PRABHAKAR. Josue [place], CASE MANAGEMENT DCPIA - Discharge Planning Initial Assessment Updated by [email or web address]: Josue Sal on 03/31/18 11:56 am * Is the patient Alert and Oriented? Yes * How many steps to enter\exit or inside your home? * PCP DR. MUNOZ * Pharmacy [facility] * Preadmission Environment Home with Family * ADLs Independent * Equipment Nebulizer Oxygen Walker * Other Equipment HOME AND PORTABLE OXYGEN [facility] * List name and contact numbers for known caregivers / representatives who currently or will assist patient after discharge: SAAD GLEASON, DAUGHTER, * Verbal permission to speak to the caregivers and representatives has been obtained from the patient. N/A * Community resources currently utilized None * Please name any agencies selected above. NONE * Additional services required to return to the preadmission environment? No * Can the patient safely return to the preadmission environment? Yes * Has this patient been hospitalized within the prior 30 days at any hospital? Yes Coverage Notice Reviewer: [email or web address] Mitch Walls Notice Issued Date-Time: 03/30/2018 15:08 Notice Type: Medicare Outpatient Observation Notice Notice Delivered To: Relationship to Patient: King Maker Name: Delivery Method: - Hilaria Days: Prior Verbal Notification: Recipient Understood Notice: Recipient Signature: Med Rec Note Co-signed by Attending: Coverage Notice Comment: ATTEMPTED TO DELIVER THE WAITE TO THE PATIENT, AND PER BEDSIDE NURSE HAD JUST BEEN TAKEN TO THE REHAB CONSULTANT FOR PROCEDURE AND FAMILY WENT WITH HER. WILL ATTEMPT AGAIN LATER. Last DP export: 03/31/18 11:00 am Patient Name: JAMESON JAIN Page [phone] at 1207 All edits/amendments must be made on the electronic document DICTATION DATE: 03/31/18 1206 CYTOTECHNOLOGIST SUPERVISOR: ROXANNE 03/31/18 1206 RPT#: [id number] DC DATE: STATUS: ADM IN [facility] [address] [place] [address] END OF REPORT
--- NOTE | 2018-03-31 12:23 | MORECARE ---
CASE MANAGEMENT DISCHARGE SUMMARY PATIENT: JAMESON JAIN UNIT: [id number] ADM DATE: 03/29/18 AGE: 62 : [birth year] SEX: F ROOM/BED: D.6280 AUTHOR: SARKIS,DOC PHYSICIAN: REFERRING PHYSICIAN: GIOVANNA HERNANDEZ M.D. DATE OF SERVICE: 03/31/18 Discharge Plan Patient Name: JAMESON JAIN Facility: [facility]:[place] : 1955 Planned Disposition: Home Anticipated Discharge Date: 03/31/18 Discharge Date: Expected LOS: 2 Initial Reviewer: [email or web address] Initial Review Date: 03/31/2018 Generated: 03/31/18 1:22 pm Comments DCP- Discharge Planning Updated by [email or web address]: Josue Arrington on 03/31/18 11:[address] Patient Name: JAMESON JAIN Encounter No: [id number] : 1955 Primary Insurance: [employer] [facility] PF Anticipated DC Date: 03-31-2018 Planned Disposition: Home DISCHARGE PLANNING NOTE: CM SPOKE TO EXPLOSIVE SPECIALIST ESTEBAN PRABHAKAR WHO INFORMED CM THAT CM IS TO CALL FOR [employer] TO TRANSPORT PT HOME, ESTEBAN PROVIDED ADMINISTRATIVE APPROVAL. CM MET WITH PT IN ROOM TO DISCUSS DISCHARGE PLANNING AND NEEDS. PT REPORTS LIVING AT HOME INDEPENDENTLY WITH HER ELDERLY MOTHER. PT HAS WALKER, NEBULIZER AND HOME AND PORTABLE OXYGEN. PT HAS BEEN WEARING OXYGEN AT NIGHT AND NEEDED ONLY. MEDICAL EQUIPMENT PROVIDER IS [facility]. PT HAS NO OUTSIDE SERVICES ASSISTING IN THE HOME. CM DISCUSSED AVAILABILITY OF HOME HEALTH, REHAB SERVICES AND MEDICAL EQUIPMENT. PT DENIES DISCHARGE NEEDS, REPORTS HER DAUGHTER CANNOT PICK HER UP FOR DISCHARGE HOME UNTIL 4PM TODAY. PT HAS NO ONE ELSE TO CALL FOR A RIDE HOME. CM INFORMED PT THAT EXPLOSIVE SPECIALIST WHO PT MET A FEW MINUTES AGO HAS AUTHORIZED THE HOSPITAL PAY FOR [employer] TO GET PT HOME. PT ACCEPTS. PT HAS NOT YET BEEN SIGNED OUT FOR DISCHARGE. CM NOTIFIED BEDSIDE NURSE OF PLAN, FOR NURSE TO NOTIFY CM WHEN PT IS SIGNED OUT AND READY TO BE WHEELED TO FRONT DOOR, CM WILL CALL FOR [employer] SERVICE APPROVED BY EXPLOSIVE SPECIALIST ESTEBAN PRABHAKAR. Josue Arrington, CASE MANAGEMENT Appended by Josue Arrington on 03/31/2018 12:20 VALVE MECHANIC: CM SPOKE TO BEDSIDE NURSE WHO INFORMED CM THAT PT HAS FOUND ANOTHER RIDE THAT CAN PICK HER UP TODAY IN A SHORT TIME FROM NOW WHEN CALLED. CM WILL NOT NEED TO ARRANGE [employer] SERVICES FOR PT'S TRANSPORTATION HOME TODAY. JOSUE ARRINGTON, CASE MANAGEMENT DCPIA - Discharge Planning Initial Assessment Updated by [id number]: Josue Arrington on 03/31/18 11:56 am * Is the patient Alert and Oriented? Yes * How many steps to enter\exit or inside your home? * PCP DR. MUNOZ * Pharm[facility] * Preadmission Environment Home with Family * ADLs Independent * Equipment Nebulizer Oxygen Walker * Other Equipment HOME AND PORTABLE OXYGEN [facility] * List name and contact numbers for known caregivers / representatives who currently or will assist patient after discharge: SAAD GLEASON, DAUGHTER, * Verbal permission to speak to the caregivers and representatives has been obtained from the patient. N/A * Community resources currently utilized None * Please name any agencies selected above. NONE * Additional services required to return to the preadmission environment? No * Can the patient safely return to the preadmission environment? Yes * Has this patient been hospitalized within the prior 30 days at any hospital? Yes Coverage Notice Reviewer: [id number] Mitch Me[place] Notice Issued Date-Time: 03/30/2018 15:08 Notice Type: Medicare Outpatient Observation Notice Notice Delivered To: Relationship to Patient: Information Assoc Name: Delivery Method: - Hilaria Days: Prior Verbal Notification: Recipient Understood Notice: Recipient Signature: Med Rec Note Co-signed by Attending: Coverage Notice Comment: ATTEMPTED TO DELIVER THE WAITE TO THE PATIENT, AND PER BEDSIDE NURSE HAD JUST BEEN TAKEN TO THE [facility] FOR PROCEDURE AND FAMILY WENT WITH HER. WILL ATTEMPT AGAIN LATER. Last DP export: 03/31/18 11:07 am Patient Name: JAMESON JAIN Page [phone] at 1223 All edits/amendments must be made on the electronic document DICTATION DATE: 03/31/18 1222 FUNDS TRANSFER CLERK: ROXANNE 03/31/18 1222 RPT#: [id number] DC DATE: STATUS: ADM IN [facility] [address] [place] [address] END OF REPORT
--- NOTE | 2018-03-31 12:51 | NUR ---
PT STATES HER FRIEND WILL PICK HER UP. DISCHARGE TEACHING PROVIDED AND PAPERS SIGNED. PT VERBALIZED UNDERSTANDING AND DENIES ANY QUESTIONS OR CONCERNS. ALL BELONGINGS COLLECTED AND PT ABOUT TO BE ESCORTED OUT. 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 NO FURTHER NEEDS.
== END 2018-03-31 13:03 | disposition home or self-care (01) ==
LOC: D.ER 16:55 → OBSVTIME 19:12 → D.M2 19:12
PROVIDERS: Family Medicine; ADMIT Internal Medicine Cardiovascular Disease
DX: I21.4 Non-ST elevation (NSTEMI) myocardial infarction (principal); I25.10 Atherosclerotic heart disease of native coronary artery without angina pectoris; I10 Essential (primary) hypertension; I48.0 Paroxysmal atrial fibrillation

== ENCOUNTER 2018-07-26 10:08 | Outpatient (CLI) | payer MEDICARE, BC | END 2018-07-26 13:35 | disposition home or self-care (01) | LOC: D.CATH 10:08 | DX: I48.91 Unspecified atrial fibrillation (principal) ==

== ENCOUNTER 2018-08-25 09:54 | Outpatient (CLI) | payer MEDICARE, BC ==
[~2018-08-25] VITALS: Ht 165.1 cm; Wt 115.5 kg
--- NOTE | ~2018-08-25 | HEMODYNAMI ---
PATIENT:JAMESON JAIN MEDICAL RECORD: [id number] : 51 LOCATION:[facility] ADMISSION DATE: 08/25/18 Generatedon:08/25/201810:58 Patient name: JAMESON JAIN Patient #: [id number] SSN: [id number] : 1955 Date of study: 08/25/2018 Page: Of Hemodynamic Procedure Report Patient Data Patient Demographics Procedure consent was obtained First Name: JAMESON Gender: Female Last Name: SUSY : 1955 [facility] Initial: L Age: 63 year(s) Patient #: [id number] Race: SSN: [id number] Additional ID: [id number] Contact details [address]: [address] [place] [address] State: [place] City: [place] Zip code: [address] Past Medical History Allergies Allergen Reaction Date Comments Reported Other allergy 03/30/2015 Sulfa Other allergy 05/23/2016 Sulfa Sulfa drugs 03/30/2018 Other allergy 08/25/2018 SULFA, VOLTAREN, MIRALAX, LIPITOR, HCTZ Admission Admission Data Admission Date: 08/25/2018 Admission Time: 9:54 Height (in.): 65 BSA: 2.18 (m2) Height (cm.): 165.1 BMI: 41.77 (kg/m2) Weight (lbs.): 251 Weight (kg.): 113.85 Procedure Procedure Types Cath Procedure Diagnostic Procedure Cardioversion External Procedure Description Procedure Date Procedure Date: 08/25/2018 Procedure Start Time: 10:49 Procedure End Time: 10:58 Procedure Staff Name Function Ryley Baer MD Performing Physician Jarod Valladares RN Dye Range Feeder Jonna Jeronimo RT Monitor Stephanie Tadeo RN Nurse Charles Escobar CRNA Additional personnel Procedure Data Cath Procedure Estimated blood loss: 0 ml Procedure Complications No complications Procedure Medications Medication Administration Route Dosage 0.9% NaCl I.V. 100 ml/hr Oxygen etCO2 Nasal cannula 2 l/min Refer to Anesthesia Notes for Sedation Medications Hemodynamics Rest BSA: 2.18 (m2) O2 Consumption: Estimated: 296.48 (ml/min) O2 Consumption indexed : Estimated:136 (ml/min/m) Pre Cath Intra NCS Post Cath Vital Signs Time Heart Resp SPO2 etCO2 NIBP Rhythm Pain Sedation Rate (ipm) (%) (mmHg) (mmHg) Status Level (bpm) 10:46:53 88 19 98 33.7 139/65(78) A-Fib 0 (11) 10(A) , No pain 10:51:27 97 17 98 32.2 125/64(91) A-Fib 0 (11) 5(A) , No pain 10:53:32 76 20 98 35.6 123/59(93) NSR 0 (11) 5(A) , No pain 10:58:09 74 22 98 33.7 128/58(83) NSR 0 (11) 10(A) , No pain Medications Time Medication Route Dose Verified Delivered Reason Notes Effective ness by by 10:45:56 0.9% NaCl I.V. 100 Ryley Walkera used for ml/hr Keyur Tadeo gre instructor 10:46:03 Oxygen etCO2 2 Ryley Walkera used for Nasal l/min Keyur Tadeo procedure cannula RN 10:46:07 Refer to Ryley Brown Anesthesia Keyur Tadeo Notes for RN Sedation Medications Procedure Log Time Note 10:24:56 Signed procedure consent form obtained from patient. 10:24:59 Diagnostic Cath status Elective 10:24:59 Time tracking: Regular hours (M-F 7:00 - 5:00) 10:25:02 Plan of Care:Hemodynamics will remain stable., Cardiac rhythm will remain stable., Comfort level will be maintained., Respiratory function will remain adequate., Patient/ family verbilizes understanding of procedure., Procedure tolerated without complication., Recovers from procedure without complications.. 10:27:16 Patient Weight : 251 lbs 10:27:20 Patient Height : 65 inches 10:34:48 Stephanie Tadeo RN sent for patient. Start room use. 10:41:22 Patient arrived from Pre/Post Procedure Room to CCL 1. Patient remains on bed/stretcher for procedure. 10:41:23 Warm blankets applied, and yolanda hugger turned on for patient comfort. 10:41:24 Correct patient and procedure confirmed by team. 10:41:24 ECG and BP/O2 sat monitors applied to patient. 10:43:12 Full Disclosure recording started 10:43:18 H&P Date Dictated: 08/23/2018 Within 30 days and on chart., H&P Addendum completed by physician on day of procedure. (MUST COMPLETE FOR ALL OUTPATIENTS). 10:43:19 Pre-procedure instructions explained to patient. 10:43:19 Pre-op teaching completed and patient verbalized understanding. 10:43:20 Family in patients room. 10:43:26 Patient NPO since Midnight. 10:43:58 Patient allergic to Other allergySULFA, VOLTAREN, MIRALAX, LIPITOR, HCTZ 10:44:00 Is patient on blood thinner?Yes 10:44:03 ACC The patient was administered the following blood thiners within the last 24 hours: Xarelto 10:44:33 BORDERLINE DIABETIC- DIET CONTROLLED 10:44:37 Patient not . Patient is over age 55. 10:44:41 Previous problem with sedation/anesthesia? No ? 10:44:42 Snore? Yes 10:44:43 Sleep apnea? Yes 10:44:47 Deviated septum? No 10:44:49 Opens mouth fully? Yes 10:44:50 Sticks out tongue? Yes 10:44:54 Airway obstruction? Yes COPD 10:44:59 Dentures? No ? 10:45:04 Patient pain scale 0/10 ?. 10:45:10 IV patent on arrival in right forearm with 0.9% NaCl at O. 10:45:13 Vital chart was started 10:45:45 Alarms reviewed by R. N. 10:45:45 Sharps counted by scrub and verified by R.N. 10:45:56 0.9% NaCl 100 ml/hr I.V. was administered by Stephanie Tadeo RN; used for procedure; 10:46:03 Oxygen 2 l/min etCO2 Nasal cannula was administered by Stephanie Tadeo RN; used for procedure; 10:46:04 Charles Escobar CRNA present and monitoring patient for TIVA. 10:46:07 Refer to Anesthesia Notes for Sedation Medications was administered by Stephanie Tadeo RN; ; 10:46:32 Quick Combo opened to sterile field. 10:48:41 --------ALL STOP TIME OUT------ 10:48:41 Final Timeout: patient, procedure, and site verified with staff and physician. All members of the team are in agreement. 10:48:55 Physical assessment completed. ASA score P 2 - A patient with mild systemic disease as per Ryley Baer MD. 10:48:59 Sedation plan: TIVA Medication:Propofol 10:49:11 Procedure started. 10:49:21 ------Cardioversion------ 10:49:46 Quick combo pads placed on patients chest and back. 10:51:14 Defibrillator synced and charged to 275 Joules. 10:51:53 Shock delivered. 10:52:14 Patient cardioverted to sinus rhythm . 10:52:19 Procedure ended.(Physican Out) 10:53:36 Post-procedure physical assessment completed. ASA score P 2 - A patient with mild systemic disease as per Ryley Baer MD. 10:53:39 Post procedure rhythm: sinus rhythm 10:53:43 Estimated blood loss: 0 ml 10:53:44 Post procedure instruction explained to patient.Patient verbalizes understanding. 10:53:44 Patient needs reinforcement of post procedure teaching. 10:53:59 Procedure and supply charges have been captured, reviewed, submitted and are correct. 10:54:02 Procedure Complication : No complications 10:58:27 Vital chart was stopped 10:58:27 See physician's report for complete and final results. 10:58:28 Report given to Pre/Post Procedure Room. 10:58:30 Patient transfered to Pre/Post Procedure Room with Bed. 10:58:32 Procedure ended. 10:58:32 Full Disclosure recording stopped 10:58:34 End room use (Document Last) Device Usage Item Manufacture Quantity Catalog Hospital Part Current Minimal Lot# / Name Number Charge Number Stock Marvin ferreira# Code [employer] 1 [id number] Combo Signature Audit Coello Stage Time Signature Unsigned Intra-Procedure 08/25/2018 Jonna Jeronimo 10:58:44 AM RT(R) Signatures Monitor : Jonna Jeronimo Signature : RT Date : Time : [facility] [address] [place] [address]
[~2018-08-25 09:54] MED LIST changes: +PACERONE200 MG PO; +XARELTO20 MG PO
[2018-08-25 10:27] VITALS: BP 126/53; Ht 165.1 cm; Wt 115.5 kg
[2018-08-25 10:57] LABS: BASOPHILS 0.9 % (0-2); EOSINOPHILS 1.2 % (0-7); HEMATOCRIT 34.4 % (36.0-48.0); HEMOGLOBIN 11.5 g/dL (12-16); IMMATURE GRANULOCYTES 0.3 % (0-5); LYMPHOCYTES 22.6 % (15-50); MCH 28.3 pg (26.0-34.0); MCHC 33.4 g/dL (31.0-37.0); MCV 84.5 fL (80.0-100.0); MEAN PLATELET VOLUME 9.8 fL (7.4-10.4); MONOCYTES 12.2 % (2-11); NEUTROPHILS 62.8 % (40-80); PLATELET COUNT 225 10x3/uL (130-400); RBC 4.07 10x6/uL (4.00-5.40); RDW 14.5 % (11.5-14.5); WBC 6.6 10x3/uL (4.8-10.8)
[2018-08-25 10:59] LABS: ANION GAP 4.1 mmol/L (8-16); CARBON DIOXIDE 27.7 mmol/L (21.0-32.0); POTASSIUM - SERUM 3.8 mmol/L (3.5-5.1)
[2018-08-25 11:00] LABS: INR 2.43 (0.85-1.17); PROTIME 25.7 SECONDS (11.6-15.0)
--- NOTE | 2018-08-25 11:05 | NUR ---
PT RECEIVED VIA STRETCHER FROM COLOR CONTROL OPERATOR POST CARDIOVERSION FOR RECOVERY. PT AWAKE, DENIES PAIN OR DISCOMFORT. HR NSR RATE 73, BP 112/50, 02 ON AT 2L/NC, SAT 98. COFFEE GIVEN PER REQUEST. CALL LIGHT IN REACH. IV PATENT INFUSING VIA R AC PER ORDERS. DAUGHTER AT BEDSIDE
--- NOTE | 2018-08-25 11:30 | NUR ---
PT DOING WELL, DENIES PAIN OR DISCOMFORT STATES SHE CAN BREATH SO MUCH BETTER NOW. O2 REMOVED, SAT 98 ON ROOM AIR. HR NSR RATE 69, BP 129/57. CALL LIGHT IN REACH. TOLERATING FLUIDS W/O NAUSEA. OFFERED SANDWICH TRAY BUT SHE DOESN'T WANT AT THIS TIME.
--- NOTE | 2018-08-25 11:52 | NUR ---
IV REMOVED W CATH INTACT, MONITORS REMOVED. PT UP TO DRESS FOR DISCHARGE. VSS.
--- NOTE | 2018-08-25 12:01 | NUR ---
PT AMBULATED TO BR, VOIDING W/O DIFFICULITY. DISCHARGE INSTRUCTIONS REVIEWED W PT, SHE VERBALIZED UNDERSTANDING. PT IS WAITING ON HER DAUGHTER TO GET BACK FOR DISCHARGE.
--- NOTE | 2018-08-25 12:10 | NUR ---
DR WAGNER AT BEDSIDE, DISCUSSED W PT PLAN OF CARE AND PROCEDURE RESULTS.
--- NOTE | 2018-08-25 12:28 | NUR ---
PT DISCHARGED VIA WC TO PRIVATE VEHICLE WITH ALL BELONGINGS.
== END 2018-08-25 12:25 | disposition home or self-care (01) ==
LOC: D.CATH 09:54
PROVIDERS: ATTEND Internal Medicine Interventional Cardiology
DX: I48.91 Unspecified atrial fibrillation (principal)

== ENCOUNTER 2018-09-24 10:00 | Outpatient (CLI) | payer MEDICARE, BC ==
[~2018-09-24] VITALS: Ht 165.1 cm; Wt 113.6 kg
--- NOTE | ~2018-09-24 | HEMODYNAMI ---
PATIENT:JAMESON JAIN MEDICAL RECORD: [id number] : 51 LOCATION:[facility] ADMISSION DATE: 09/24/18 Generatedon:09/24/201812:54 Patient name: JAMESON JAIN Patient #: [id number] : 1955 Date of study: 09/24/2018 Page: Of Hemodynamic Procedure Report Patient Data Patient Demographics Procedure consent was obtained First Name: JAMESON Gender: Female Last Name: SUSY : 1955 [facility] Initial: L Age: 63 year(s) Patient #: [id number] Race: SSN: [id number] Additional ID: [id number] Contact details [address]: [address] [place] [address] State: [place] City: [place] Zip code: [address] Past Medical History Allergies Allergen Reaction Date Comments Reported Other allergy 03/30/2015 Sulfa Other allergy 05/23/2016 Sulfa Sulfa drugs 03/30/2018 Other allergy 08/25/2018 SULFA, VOLTAREN, MIRALAX, LIPITOR, HCTZ Other allergy 09/24/2018 Sulfa Admission Admission Data Admission Date: 09/24/2018 Admission Time: 10:00 Admit Source: Other Insurance Payor: Medicare, Private health insurance [facility] #: [id number] Height (in.): 64.96 BSA: 2.18 (m2) Height (cm.): 165 BMI: 41.73 (kg/m2) Weight (lbs.): 250.45 Weight (kg.): 113.6 Lab Results Lab Result Date: 09/24/2018 Lab Result Time: 10:50 Biochemistry Name Units Result Min Max BUN mg/dl 21 --(----)-* 7 18 Creatinine mg/dl 1.1 --(--*-)-- 0.6 1.3 CBC Name Units Result Min Max Hematocrit % 32.7 *-(----)-- 42 54 Hemoglobin g/dl 11 *-(----)-- 13.5 17.5 Procedure Procedure Types Cath Procedure Diagnostic Procedure [facility] w/Coronaries FFR/IVUS FFR Initial Cardioversion External Sedation Charges Moderate Sedation up to 30 minutes Peripheral Cath Diagnostic Procedure Soil Analyst Peripheral Procedures Hveqn-Jajluoe-Lcz-Off Peripheral vascular Intervention Stent Stent Iliac w/plasty Initial Procedure Description Procedure Date Procedure Date: 09/24/2018 Procedure Start Time: 12:22 Procedure End Time: 12:48 Procedure Staff Name Function Ryley Baer MD Performing Physician Juan David Dewitt RT Monitor Hermilo Mcgraw RT Scrub Nereida Reynaga RT Scrub Charly Mcarthur RN Nurse Sathya Steen MEMBER SERVICES COORDINATOR Additional personnel Procedure Data Cath Procedure Fluoroscopy Diagnostic fluoroscopy Total fluoroscopy Time: 4.4 time: 4.4 min min Diagnostic fluoroscopy Total fluoroscopy dose: dose: 1368 mGy 1368 mGy Contrast Material Contrast Material Type Amount (ml) Isovue 300 198 Entry Location Entry Primary Successful Side Size Upsize Upsize Entry Closure Succes sful Closure Location (Fr) 1 (Fr) 2 (Fr) Remarks Device Remarks Femoral Left 5 Fr 6 Fr 6 Fr Exoseal artery Long Short Estimated blood loss: 10 ml Diagnostic catheters Device Type Used For End Catheter Placement MULTIPACK 3DRC 5Fr Procedure catheter MULTIPACK Pigtail 5 Fr Procedure catheter MULTIPACK JL 4.0 5Fr Procedure catheter MULTIPACK 3DRC 5Fr Procedure catheter Procedure Complications No complications Procedure Medications Medication Administration Route Dosage 0.9% NaCl I.V. 100 ml/hr Oxygen etCO2 Nasal cannula 4 l/min Heparin Flush Bag added to field 2 bags (1000units/500ml NS) Lidocaine 2% added to field 20 Refer to Anesthesia Notes for Sedation Medications Heparin Bolus I.V. 5000 units Integrilin (Bolus I.V. 10.2 ml 2mg/ml) Integrilin (Bolus wasted 9.8 ml 2mg/ml) Plavix P.O. 600 mg Hemodynamics Rest BSA: 2.18 (m2) HGB: 11 (g/dl) O2 Consumption: Estimated: 224.09 (ml/min) O2 Cons umption indexed: Estimated:102.79 (ml/min/m) Heart Rate: 95 (bpm) Pressure Samples Time Site Value (mmHg) Purpose Heart Use Rate(bpm) 12:27 LV 113/8,16 Snapshot 84 Snapshots Pre Cath Intra NCS Post Cath Vital Signs Time Heart Resp SPO2 etCO2 NIBP (mmHg) Rhythm Pain Sedation Rate (ipm) (%) (mmHg) Status Level (bpm) 12:08:51 92 23 98 22.5 166/85(121) NSR 0 (11) 10(A) , No pain 12:13:15 90 25 100 27.8 159/73(104) NSR 0 (11) 10(A) , No pain 12:17:39 91 20 100 26.3 160/80(100) NSR 0 (11) 10(A) , No pain 12:21:59 93 23 100 27.7 140/72(104) NSR 0 (11) 10(A) , No pain 12:26:17 94 17 98 136/65(98) NSR 0 (11) 8(A) , No pain 12:30:29 89 17 97 126/61(91) NSR 0 (11) 8(A) , No pain 12:34:43 86 19 97 113/58(76) NSR 0 (11) 8(A) , No pain 12:38:57 94 16 96 115/50(78) NSR 0 (11) 8(A) , No pain 12:43:16 89 16 96 118/52(92) NSR 0 (11) 9(A) , No pain 12:47:30 92 22 97 116/54(80) NSR 0 (11) 10(A) , No pain Medications Time Medication Route Dose Verified Delivered Reason Notes Effectiveness by by 12:09:21 0.9% NaCl I.V. 100 Charly Charly Per physician ml/hr Blue Mcarthur RN RN 12:09:38 Oxygen etCO2 4 Charly Charly for low 02 sats Nasal l/min Blue Mcarthur cannula RN RN 12:09:50 Heparin Flush added 2 Charly Charly used for Bag to bags Blue Mcarthur procedure (1000units/500ml field RN RN NS) 12:10:00 Lidocaine 2% added 20ml Charly Charly for local to vial Blue Mcarthur anesthetic field RN RN 12:20:38 Refer to Charly Charly for sedation Anesthesia Notes Blue Mcarthur for Sedation RN RN Medications 12:30:32 Heparin Bolus I.V. 5000 Charly Charly for units Blue Mcarthur anticoagulation RN RN 12:36:06 Integrilin I.V. 10.2 Charly Charly for (Bolus 2mg/ml) ml Blue Mcarthur antiplatelet RN RN therapy 12:36:42 Integrilin wasted 9.8 Charly Charly to sharp's (Bolus 2mg/ml) ml Blue Mcarthur RN RN 12:45:36 Plavix P.O. 600 Charly Parks for mg Blue Mcarthur antiplatelet RN RN therapy Procedure Log Time Note 11:45:46 Charly Mcarthur RN sent for patient. Start room use. 11:52:16 Informed consent obtained and on chart 11:56:40 Admit Source: Other 11:56:46 Insurance Payor : Private health insurance, Medicare 11:57:11 Patient Weight : 250.45 lbs 11:57:16 Patient Height : 64.96 inches 11:58:29 Lab Result : Creatinine 1.1 mg/dl 11:58:29 Lab Result : BUN 21 mg/dl 11:58:29 Lab Result : Hemoglobin 11 g/dl 11:58:29 Lab Result : Hematocrit 32.7 % 11:59:12 ACCPatient has been prescribed/administered the following anti-anginal medication within the last 2 weeks: Beta Megan, ARB 11:59:33 Procedure Status Elective Heart Cath (OP), Cardioversion. 12:00:51 Sathya Steen CRNA present and monitoring patient for TIVA. 12:02:52 Time tracking: Regular hours (M-F 7:00 - 5:00) 12:02:55 Plan of Care:Hemodynamics will remain stable., Cardiac rhythm will remain stable., Comfort level will be maintained., Respiratory function will remain adequate., Patient/ family verbilizes understanding of procedure., Procedure tolerated without complication., Recovers from procedure without complications.. 12:03:50 Patient received from Pre/Post Procedure Room to CCL 2 Alert and oriented. Tansferred to table in Supine position. 12:03:55 Warm blankets applied, and yolanda hugger turned on for patient comfort. 12:03:58 Correct patient and procedure confirmed by team. 12:04:01 ECG and BP/O2 sat monitors applied to patient. 12:04:02 Vital chart was started 12:04:04 Baseline sample Acquired. 12:07:51 H&P Date Dictated: 09/23/2018 Within 30 days and on chart., H&P Addendum completed by physician on day of procedure. (MUST COMPLETE FOR ALL OUTPATIENTS). 12:07:52 Pre-procedure instructions explained to patient. 12:07:53 Pre-op teaching completed and patient verbalized understanding. 12:07:54 Family in waiting room. 12:07:55 Patient NPO since Midnight. 12:08:10 Patient allergic to Other allergySulfa 12:08:12 Is the patient allergic to Iodine/contrast media? No. 12:08:16 Is patient on blood thinner?Yes 12:08:19 ACC The patient was administered the following blood thiners within the last 24 hours: None 12:08:20 Patient diabetic? No. 12:08:28 Previous problem with sedation/anesthesia? No ? 12:08:29 Snore? Yes 12:08:30 Sleep apnea? Yes 12:08:31 Deviated septum? No 12:08:31 Opens mouth fully? Yes 12:08:32 Sticks out tongue? Yes 12:08:36 Airway obstruction? Yes COPD 12:08:38 Dentures? No ? 12:08:40 Pre procedure: left dorsailis pedis pulse 2+ Normal; easily identifiable; not easily obliterated 12:08:49 Patient pain scale 0/10 ?. 12:08:53 Baseline sample Acquired. 12:08:57 Rhythm: atrial fibrillation 12:08:58 Full Disclosure recording started 12:09:21 0.9% NaCl 100 ml/hr I.V. was administered by Charly Mcarthur RN; Per physician; 12:09:38 Oxygen 4 l/min etCO2 Nasal cannula was administered by Charly Mcarthur RN; for low 02 sats; 12:09:50 Heparin Flush Bag (1000units/500ml NS) 2 bags added to field was administered by Charly Mcarthur RN; used for procedure; 12:10:00 Lidocaine 2% 20ml vial added to field was administered by Charly Mcarthur RN; for local anesthetic; 12:10:03 IV patent on arrival in left forearm with 0.9% NaCl at [facility]. 12:10:05 Lab results completed and on chart. 12:10:11 Left groin area was prepped with chlora-prep and draped in sterile fashion 12:10:11 Alarms reviewed by RLauren N. 12:10:12 Sharps counted by scrub and verified by R.N. 12:10:14 Use device set Femoral Dx 12:10:15 ACIST Syringe (92563) opened to sterile field. 12:10:15 Bag Decanter (2002S) opened to sterile field. 12:10:16 Medline Cath Pack ([id number]) opened to sterile field. 12:10:17 ACIST Hand Control (17677) opened to sterile field. 12:10:17 ACIST Manifold (71621) opened to sterile field. 12:10:18 Tegaderm 4 x 4 (1626W) opened to sterile field. 12:10:20 DIAGNOSTIC Multipack 5Fr catheter set (BW8480) opened to sterile field. 12:10:20 MICROPUNCTURE 4FR Cook (S66986) opened to sterile field. 12:10:21 EMERALD Guide Wire (502-259) opened to sterile field. 12:10:22 SHEATH 5FR Rankin (VFF701) opened to sterile field. 12:10:28 Quick Combo opened to sterile field. 12:10:57 Quick combo pads placed on patients chest and back. 12:11:54 Physician arrived 12:11:55 --------ALL STOP TIME OUT------ 12:11:55 Final Timeout: patient, procedure, and site verified with staff and physician. All members of the team are in agreement. 12:11:56 Left groin site verified by team. 12:12:03 Fire Safety Assessment: A--An alcohol-based skin anteseptic being used preoperatively., C--Open oxygen or nitrous oxide is being used., D--An ESU, laser, or fiber-optic light is being used. 12:12:06 Physical assessment completed. ASA score P 3 - A patient with severe systemic disease as per Ryley Baer MD. 12:12:15 3a) 45-59 Moderately reduced kidney function. 12:12:35 Maximum allowable contrast dose (3.7 X eGFR X 0.75)147 ml. 12:12:38 Sedation plan: TIVA Medication:Propofol 12:20:17 Zero performed for pressure channel P1 12:20:38 Refer to Anesthesia Notes for Sedation Medications was administered by Charly Mcarthur RN; for sedation; 12:22:04 Procedure started. 12:22:09 Local anesthetic to left femerol artery with Lidocaine 2% by Ryley Baer MD.INITIAL ACCESS ONLY 12:22:56 A 5 Fr sheath was inserted into the Left Femoral artery 12:23:30 A MULTIPACK 3DRC 5Fr catheter was advanced over the wire and used for Procedure. 12:24:16 Catheter exchanged over wire. 12:24:20 A MULTIPACK Pigtail 5 Fr catheter was advanced over the wire and used for Procedure. 12::40 Abdominal angiogram w/ runoff was performed. 12::44 Left leg runoff performed. 12:25:18 INFLATOR Merit BasixCompak (QX6290) opened to sterile field. 12::35 Right leg runoff performed. 12::37 SHEATH 6FR Brite Tip 35cm (411771N) opened to sterile field. 12:28:08 LV gram done using MONTE 12:28:11 Injector settings: Ml/sec: 10, Volume: 20, 12:28:12 LV hemodynamics recorded. 12:28:16 EF : 55 % 12:28:34 Catheter exchanged over wire. 12::47 Sheath upsized to a 6 Fr Long. 12:30:32 Heparin Bolus 5000 units I.V. was administered by Charly Mcarthur RN; for anticoagulation; 12:32:08 J WIRE wire advanced. 12:32:41 Procedure type changed to Cath procedure, Diagnostic procedure, LHC, LHC w/Coronaries, FFR/IVUS, FFR Initial, Cardioversion External, Sedation Charges, Moderate Sedation up to 30 minutes, Peripheral Cath Diagnostic Procedure, Soil Analyst Peripheral Procedures, Gaiia-Vwwjwzm-Iou-Off, Peripheral vascular Intervention, Stent, Stent Iliac w/plasty Initial 12:33:00 Place stent Inflation Number: 1 A CHRISTIAN 7 x 29 x 135 stent ([id number]) was prepped and advanced across the Ostial Common Iliac, Left . The stent was deployed at 15 JAVIER for 0:10 (min:sec) . 12:33:03 Stent catheter was removed intact over wire. 12:33:55 Inflate balloon Inflation number: 2 A POWERFLEX PRO 8.0 x 40 x 135cm balloon ([id number]) was prepped and advanced across the Ostial Common Iliac, Left , then inflated to 9 JAVIER for 0:10 (min:sec) . 12:33:57 Balloon removed over the wire. 12:34:28 A MULTIPACK JL 4.0 5Fr catheter was advanced over the wire and used for Procedure. 12:35:13 LCA angiography performed. 12:36:06 Integrilin (Bolus 2mg/ml) 10.2 ml I.V. was administered by Charly Mcarthur RN; for antiplatelet therapy; 12:36:22 Catheter exchanged over wire. 12:36:28 A MULTIPACK 3DRC 5Fr catheter was advanced over the wire and used for Procedure. 12:36:42 Integrilin (Bolus 2mg/ml) 9.8 ml wasted was administered by Charly Mcarthur RN; to sharp's; 12:36:58 RCA angiography performed. 12:39:17 SHEATH 6FR Rankin (ARS069) opened to sterile field. 12:39:23 [place] Verrata Plus pressure wire (14743K) opened to sterile field. 12:39:34 GUIDE 6FR XBLAD 4.0 catheter ([id number]) opened to sterile field. 12:39:57 Catheter exchanged over wire. 12:40:05 6 Fr XBLAD 4 guide catheter was inserted over the wire 12:41:09 FFR/IFR wire advanced. 12:41:27 mCirc lesion measured at 0.96 with IFR 12:41:46 Wire removed. 12:41:48 Catheter removed. 12:41:56 Sheath upsized to a 6 Fr Short. 12:42:05 EXOSEAL 6Fr (EX600) opened to sterile field. 12:42:26 Defibrillator synced and charged to 275 Joules. 12:42:29 Shock delivered. 12:43:30 Patient cardioverted to sinus rhythm , 1st degree heart block. 12:43:57 Sheath removed intact; hemostasis achieved with Exoseal to the Left Femoral artery. 12:43:58 Procedure ended.(Physican Out) 12:44:34 Fluoroscopy time 04.40 minutes. 12:44:38 Fluoroscopy dose: 1368 mGy 12:44:38 Flurop Dose total: 1368 12:45:08 Dose Area Product 49096 mGy/cm. 12:45:36 Plavix 600 mg P.O. was administered by Charly Mcarthur RN; for antiplatelet therapy; 12:46:19 Contrast amount:Isovue 300 198ml. 12:46:25 Maximum allowable dose exceeded? Yes. 12:46:26 Sharps counted by scrub and verified by R.N. 12:46:27 Insertion/operative site no bleeding no hematoma. 12:46:29 Post-op/insertion site Left Femoral artery dressed using a 4 x 4 and Tegaderm. 12:46:35 Post left femerol artery:stable, soft, clean and dry 12:46:37 Post Procedure Pulses reassessed and unchanged 12:46:46 Post procedure rhythm: 1st degree heart block 12:46:49 Estimated blood loss: 10 ml 12:46:50 Post procedure instruction explained to patient.Patient verbalizes understanding. 12:46:50 Patient needs reinforcement of post procedure teaching. 12:48:37 Procedure and supply charges have been captured, reviewed, submitted and are correct. 12:48:39 Procedure Complication : No complications 12:48:40 Vital chart was stopped 12:48:41 See physician's report for complete and final results. 12:48:50 Report given to Pre/Post Procedure Room. 12:48:53 Patient transfered to Pre/Post Procedure Room with Stretcher. 12:48:55 Procedure ended. 12:48:55 Full Disclosure recording stopped 12:49:09 ACC-PCI Only Patient was given prescriptions, or instructed by Ryley Baer MD to start/continue the following medications upon discharge: Aspirin, Plavix 12:49:11 End room use (Document Last) Intervention Summary Intervention Notes Time ActionType Lesion and Equipment Action# Pressure Duration Attributes Used 12:33:00 Place stent Ostial CHRISTIAN 7 x 1 15 00:10 Common 29 x 135 Iliac, Left stent ([id number]) 12:33:55 Inflate Ostial POWERFLEX 2 9 00:10 balloon Common PRO 8.0 x Iliac, Left 40 x 135cm balloon ([id number]) Device Usage Item Name Manufacture Quantity Catalog Hospital Part Current M inimal Lot# / Number Charge Number Stock Stock Serial# Code ACIST Syringe Acist 1 03102 250997 431963 248453 2 0 (73283) Aporta[employer] Inc. Inc Bag Decanter Microtek 1 473709 12939 933446 5 () Medical Inc. Medline Cath Medline 1 [id number] 440518 61397 507478 5 Pack ([id number]) ACIST Hand Acist 1 01111 834624 643607 909113 5 Control Medical (34553) Systems Inc ACIST Acist 1 75366 396454 326849 017343 5 Manifold Medical (36436) Systems Inc Tegaderm 4 x 3M 1 1626W 756951 677536 824010 5 4 (1626W) DIAGNOSTIC Cardinal 1 TM0801 334645 94304 168166 3 0 Multipack 5Fr Health catheter set (PH9943) MICROPUNCTURE Cook Medical 1 F30649 142494 478356 357698 5 4FR Cook (E40324) EMERALD Guide Cardinal 1 502-455 141126 861973 570582 5 Wire Health (502-455) SHEATH 5FR Terumo 1 IGE947 132105 886630 790879 5 Rankin (EWD102) Quick Combo Slicethepie Systems 1 90971-134357 529245 114084 919179 5 MULTIPACK Cardinal 1 681497 5 3DRC 5Fr Health catheter MULTIPACK Cardinal 1 628554 5 Pigtail 5 Fr Health catheter SHEATH 6FR Cardinal 1 [id number] 044693 303643 121406 1 Brite Tip Health 35cm (295668X) CHRISTIAN 7 x Cardinal 1 [id number] 222723 49944 100699 5 [id number] 29 x 135 Health stent ([id number]) POWERFLEX PRO Cardinal 1 [id number] 131161 584917 867922 5 8.0 x 40 x Health 135cm balloon ([id number]) MULTIPACK JL Cardinal 1 907820 5 4.0 5Fr Health catheter SHEATH 6FR Terumo 1 BPD972 193957 970270 273501 4 0 Rankin (KSC607) INFLATOR Merit 1 AU6573 148464 884238 502674 1 5 Pear Deck Medical BasixCompak (NO3710) Carth[place] Carthage 1 25799M 651165 333081291 384263 5 Verrata Plus pressure wire (74230U) GUIDE 6FR Cardinal 1 [id number] 307974 544001 344289 3 XBLAD 4.0 Health catheter (56108278) EXOSEAL 6Fr Cardinal 1 EX600 280498 806441 850597 1 0 (EX600) Health Signature Audit [place] Stage Time Signature Unsigned Intra-Procedure 09/24/2018 Juan David Dewitt 12:54:37 PM RT(R) Signatures Performing Physician : Signature : Ryley Baer MD Date : Time : Monitor : Juan David Dewitt RT Signature : Date : Time : Nurse : Charly Lorigan Signature : RN Date : Time : [place] [address] [place] [address]
[2018-09-24] MEDS ORDERED: ZESTRIL20 MG PO (10:22)
[2018-09-24] MEDS ORDERED: XARELTO20 MG PO (10:25)
[2018-09-24 10:42] VITALS: BP 134/68; Ht 165.1 cm; Wt 113.6 kg
[2018-09-24 10:58] LABS: BASOPHILS 0.6 % (0-2); HEMATOCRIT 32.7 % (36.0-48.0); IMMATURE GRANULOCYTES 0.4 % (0-5); LYMPHOCYTES 22.9 % (15-50); MCH 28.6 pg (26.0-34.0); MCHC 33.6 g/dL (31.0-37.0); MCV 85.2 fL (80.0-100.0); MEAN PLATELET VOLUME 9.5 fL (7.4-10.4); MONOCYTES 11.3 % (2-11); NEUTROPHILS 63.8 % (40-80); PLATELET COUNT 254 10x3/uL (130-400); RBC 3.84 10x6/uL (4.00-5.40); RDW 14.9 % (11.5-14.5); WBC 7.9 10x3/uL (4.8-10.8)
[2018-09-24 11:11] LABS: INR 1.11 (0.85-1.17); PROTIME 13.8 SECONDS (11.6-15.0)
[2018-09-24 11:17] LABS: CALCIUM 9.6 mg/dL (8.5-10.1); CREATININE - SERUM 1.1 mg/dL (0.6-1.3)
[2018-09-24 11:24] LABS: CHOL - HDL RATIO 3.4 ratio (2.3-4.1); LDL-HDL RATIO 1.9 ratio (1.5-3.5)
[2018-09-24] MEDS ORDERED: PLAVIX75 MG PO (13:06)
--- NOTE | 2018-09-24 13:21 | NUR ---
RECEIVED PT FROM FISH CHECKER. PT IS AWAKE, DENIES ANY C/O CHEST PAIN OR NAUSEA. C/O PAIN TO LEFT POSTERIOR HIP. STATES NOT A NEW PAIN, BUT INCREASES WITH LAYING FLAT. ORDER FOR NORCO 10MG PO OBTAINED. DRESSING CDI LEFT GROIN, PEDAL PULSES PALPABLE. HOB IS FLAT, CALL LIGHT IN REACH,
--- NOTE | 2018-09-24 13:35 | NUR ---
PT ALERT, HAS RECEIVED NORCO 10MG PO FOR C/O PAIN TO LEFT POSTERIOR HIP. HOB IS FLAT. DRESSING CDI TO LEFT GROIN, PEDAL PULSES PALPABLE NSR, RATE IS 81. BP 124/54. CALL LIGHT IN REACH, DAUGHTER AT BEDSIDE.
--- NOTE | 2018-09-24 13:52 | NUR ---
DRESSING CDI, PEDAL PULSES PALPABLE. HOB IS FLAT. PT DENIES ANY CHEST PAIN, IS IN NSR, RATE 82. BP IS 123/52. CALL LIGHT IN REACH.
--- NOTE | 2018-09-24 14:34 | NUR ---
DRESSING LEFT GROIN IS CDI, PEDAL PULSES PALPABLE. HOB IS FLAT. PT STATES PAIN LEVEL DECRESED TO A 3/10 SINCE PAIN MEDICATION. MAIK PO FLUIDS WITH NO NAUSEA. VSS, CALL LIGHT IN REACH.
--- NOTE | 2018-09-24 15:28 | NUR ---
HOB IS FLAT, DRESSING CDI, PEDAL PULSES PALPABLE. VSS. DR WAGNER HAS ROUNDED ON PT.
--- NOTE | 2018-09-24 16:13 | NUR ---
1600 HOB ELEVATED 30 DEGREES, SANDWICH AND PO FLUIDS SERVED. DRESSING LEFT GROIN IS CDI, PEDAL PULSES PALPABLE. DAUGHTER AT BEDSIDE, CALL LIGHT IN REACH.
--- NOTE | 2018-09-24 16:31 | NUR ---
DRESSING REMAINS CDI TO LEFT GROIN, AREA IS SOFT AND NONTENDER. PEDAL PULSES PALPABLE. MAINTAINS NSR, DENIES ANY C/O CHEST PAIN. RESP WITH EASE ON ROOM AIR. VSS. DAUGHTER AT BEDSIDE.
--- NOTE | 2018-09-24 17:20 | NUR ---
1640 DRESSING REMAINS CDI TO RIGHT GROIN, PEDAL PULSES PALPABLE. PT IS ALERT AND DENIES ANY C/O. IV DC'D WITH CATH INTACT. DC INSTRUCTIONS REVIEWED WITH PT AND DAUGHTER WHO VERBALIZE UNDERSTANDING. PT DRESSING FOR DC WITH ASSIST. PT HAS VOIDED QS USING BEDPAN. 1705 PT HAS DRESSED FOR DISCHARGE, IS ALERT AND DENIES ANY C/O. PT ESCORTED TO PRIVATE AUTO VIA WC BY NURSE WITH DAUGHTER DRIVING HER HOME. PT HAS ALL PERSOANL BELONGINGS AND DC INSTRUCTIONS. PT HAS PLAVIX PRESCRIPTION AND PT AND DAUGHTER BOTH VERBALIZE UNDERSTANDING OF STARTING THIS MEDICATION TOMORROW.
--- NOTE | 2018-09-28 09:53 | OP ---
PATIENT NAME: JAMESON JAIN MEDICAL RECORD: [id number] :51 LOCATION:D.CAT ADMISSION DATE: SURGEON: VARGAS WAGNER MD DATE OF OPERATION: 09/24/2018 PROCEDURES: 1. Left heart catheterization. 2. Selective coronary angiography. 3. Left ventriculogram. 4. DC cardioversion. INDICATION: Angina, coronary artery disease, and previous cardiac stenting, atrial fibrillation. DESCRIPTION OF PROCEDURE: After informed consent was obtained and after a detailed description of risks, benefits as well as alternative therapies, the patient elected to proceed with angiogram and cardioversion. IV conscious sedation was performed per anesthesia. Continuous heart rate, O2 saturation, blood pressure monitoring all undertaken, all of which remained stable. FINDINGS: Left ventriculogram was performed in standard 30-degree MONTE view, reveals good cardiac wall motion, ejection fraction 50% to 55%. SELECTIVE CORONARY ANGIOGRAPHY: 1. Left main showed no significant angiographic disease. 2. Left anterior descending has previously placed stents. These are widely patent with no significant restenosis. No disease elsewise throughout the LAD or its branches. 3. Left circumflex has previously placed stents. There is questionable in-stent restenosis in the mid vessel; however, IFR was normal. 4. The right coronary artery is totally occluded in the mid vessel. This is chronically totally occluded. The distal right coronary artery fills via left to right collaterals off the circumflex. DC CARDIOVERSION: She received 1 shock at 275 joules restoring sinus rhythm. OVERALL IMPRESSION: 1. Successful DC cardioversion from atrial fibrillation to sinus rhythm. 2. Left heart catheterization reveals wide patency of the previously placed stents, no disease elsewise. TRANSINT:[id number] Voice Confirmation ID: [id number] DOCUMENT ID: [id number] VARGAS WAGNER MD at 0953 CC: [id number] DICTATION DATE: 09/24/18 1252 PLANT TAXONOMY TEACHER: 09/24/18 1437 [facility] CLI 09/24/18 [place] [id number]
--- NOTE | 2018-09-28 09:53 | OP ---
PATIENT NAME: JAMESON JAIN MEDICAL RECORD: [id number] :51 LOCATION:D.CAT ADMISSION DATE: SURGEON: VARGAS WAGNER MD DATE OF OPERATION: 09/24/2018 PROCEDURES: 1. Stent placement, iliac, left. 2. ASSOCIATE DIRECTOR iliac, left. 3. Aortofemoral runoff. 4. Abdominal aortography. INDICATION: Peripheral vascular disease, inability to gain access for cardiac catheterization. PROCEDURE IN DETAIL: After informed consent was obtained and after a detailed description of the risks, benefits as well as alternative therapies, the patient elected to proceed with angiogram and angioplasty. The left femoral area was prepped and draped in normal sterile fashion. Left femoral artery was cannulated via modified Seldinger technique with placement of 6-Burmese sheath. All catheters exchanged through this sheath. FINDINGS: Cardiac catheterization was attempted; however, wire would not cross the proximal iliac. We were finally able to get the wire across proximal iliac and did a check on this and there was greater than 80% stenosis. Aortofemoral runoff was then performed with passing a pigtail catheter through this area of stenosis. Abdominal aortography reveals no significant abdominal aortic disease, no dissection or aneurysm formation. RIGHT LEG: A. Iliac: The common internal and external iliacs have moderate irregularities, but no flow-limiting stenosis. B. Femoral system: The common superficial and deep femoral have moderate irregularities, but no flow-limiting stenosis. C. Popliteal and infrapopliteal vessels are patent with good 3-vessel runoff to the foot. LEFT SYSTEM: A. Iliac: The left common iliac has 80% stenosis with moderate calcification, otherwise iliacs have moderate irregularities, but no flow-limiting stenosis. B. Femoral system: The common superficial and deep femoral have moderate irregularities, but no flow-limiting stenosis. C. Popliteal and infrapopliteal vessels are widely patent with good 3-vessel runoff to the foot. ASSOCIATE DIRECTOR STENT OF THE LEFT ILIAC: The stent used was a 7 x 29 Cordis Merly stent. We post-dilated this with an 8.0 balloon. Result was 0% residual stenosis. After this, all equipment would pass with ease. OVERALL IMPRESSION: Successful percutaneous transluminal angioplasty stent of the left iliac going from 80% calcified initial stenosis to 0% residual. TRANSINT:[id number] Voice Confirmation ID: [id number] DOCUMENT ID: [id number] OPERATIVE REPORT [id number] JAMESON JAIN JEFFREY MD at 0953 CC: [id number] DICTATION DATE: 09/24/18 1252 TELEPHONE STATION REPAIRER: 09/24/18 1437 [facility] CLI 09/24/18 [place] [id number] [place] [address]
== END 2018-09-24 17:05 | disposition home or self-care (01) ==
LOC: D.CATH 10:00
PROVIDERS: ATTEND Internal Medicine Interventional Cardiology
DX: I25.119 Atherosclerotic heart disease of native coronary artery with unspecified angina pectoris (principal); Z95.5 Presence of coronary angioplasty implant and graft; I48.91 Unspecified atrial fibrillation; I70.202 Unspecified atherosclerosis of native arteries of extremities, left leg; Z01.812 Encounter for preprocedural laboratory examination

== ENCOUNTER 2018-09-26 13:07 | Emergency (ER) | payer MEDICARE, BC ==
[~2018-09-26] VITALS: Ht 165.1 cm; Wt 113.6 kg
[~2018-09-26 13:07] MED LIST changes: -CRESTOR10 MG PO; +CRESTOR40 MG PO; +LEVO-T300 MCG PO; -LEVOTHYROXINE175 MCG PO; +ZESTRIL20 MG PO
[2018-09-26 13:10] VITALS: Ht 165.1 cm; Wt 113.6 kg
[2018-09-26 13:43] LABS: BASOPHILS 0.4 % (0-2); EOSINOPHILS 1.4 % (0-7); HEMATOCRIT 31.8 % (36.0-48.0); HEMOGLOBIN 10.6 g/dL (12-16); IMMATURE GRANULOCYTES 0.4 % (0-5); MCH 28.7 pg (26.0-34.0); MCHC 33.3 g/dL (31.0-37.0); MCV 86.2 fL (80.0-100.0); MEAN PLATELET VOLUME 9.1 fL (7.4-10.4); NEUTROPHILS 71.8 % (40-80); PLATELET COUNT 241 10x3/uL (130-400); RBC 3.69 10x6/uL (4.00-5.40); RDW 15.1 % (11.5-14.5); WBC 7.3 10x3/uL (4.8-10.8)
[2018-09-26 14:15] LABS: ALBUMIN 3.4 g/dL (3.4-5.0); ALKALINE PHOSPHATASE 71 U/L (46-116); ALT (SGPT) 27 U/L (10-68); BILIRUBIN - TOTAL 0.32 mg/dL (0.2-1.3); CALC OSMOLALITY 280 mosm/kg (275-300); CALCIUM 8.6 mg/dL (8.5-10.1); CARBON DIOXIDE 24.6 mmol/L (21.0-32.0); CHLORIDE - SERUM 104 mmol/L (98-107); CREATININE - SERUM 1.1 mg/dL (0.6-1.3); GLUCOSE 115 mg/dL (74-106); POTASSIUM - SERUM 3.9 mmol/L (3.5-5.1); PROTEIN - SERUM 6.8 g/dL (6.4-8.2); SODIUM 139 mmol/L (136-145); UREA NITROGEN 17 mg/dL (7-18); eGFR NON AFRICAN AMERICAN 53 mL/min (90-120)
[2018-09-26 14:29] LABS: INR 1.21 (0.85-1.17); PROTIME 14.7 SECONDS (11.6-15.0)
[2018-09-26 14:31] LABS: CKMB 1.1 U/L (0.0-3.6); CREATINE KINASE 66 UL (21-215); PRO BNP 1082 pg/mL (0-125)
[2018-09-26 14:32] LABS: TROPONIN-I 0.125 ng/mL (0.000-0.060)
[2018-09-26 14:56] LABS: APTT 30.6 SECONDS (22.8-39.4)
[2018-09-26 15:31] VITALS: BP 129/46
== END 2018-09-26 15:31 | disposition home or self-care (01) ==
LOC: D.ER 13:07
PROVIDERS: Emergency Medicine
DX: I48.0 Paroxysmal atrial fibrillation (principal); R06.09 Other forms of dyspnea

== ENCOUNTER 2018-10-04 06:28 | Inpatient (IN) | payer MEDICARE, BC ==
[~2018-10-04] VITALS: Ht 165.1 cm; Wt 114.8 kg
[~2018-10-04 06:28] MED LIST changes: +CRESTOR10 MG PO; -CRESTOR40 MG PO; -LEVO-T300 MCG PO; +LEVOTHYROXINE175 MCG PO
[2018-10-04 07:01] LABS: BASOPHILS 0.5 % (0-2); EOSINOPHILS 0.6 % (0-7); HEMATOCRIT 32.4 % (36.0-48.0); HEMOGLOBIN 10.7 g/dL (12-16); IMMATURE GRANULOCYTES 0.2 % (0-5); LYMPHOCYTES 15.2 % (15-50); MCH 28.1 pg (26.0-34.0); MEAN PLATELET VOLUME 9.3 fL (7.4-10.4); MONOCYTES 10.6 % (2-11); NEUTROPHILS 72.9 % (40-80); PLATELET COUNT 280 10x3/uL (130-400); RBC 3.81 10x6/uL (4.00-5.40); WBC 8.7 10x3/uL (4.8-10.8)
[2018-10-04 07:11] LABS: INR 1.79 (0.85-1.17); PROTIME 20.2 SECONDS (11.6-15.0)
[2018-10-04 07:14] LABS: ALBUMIN 3.6 g/dL (3.4-5.0); BILIRUBIN - TOTAL 0.24 mg/dL (0.2-1.3); CARBON DIOXIDE 27.4 mmol/L (21.0-32.0); CREATININE - SERUM 1.1 mg/dL (0.6-1.3); POTASSIUM - SERUM 4.4 mmol/L (3.5-5.1); PROTEIN - SERUM 6.9 g/dL (6.4-8.2)
[2018-10-04 07:31] VITALS: BP 133/65
--- NOTE | 2018-10-04 08:30 | NUR ---
PT LEAVING THE ED VIA STRETCHER FOR ORDERED CT SCAN. NO SIGNS OF DISTRESS NOTED WHEN LEAVING.
[2018-10-04 08:35] LABS: APPEARANCE CLEAR (CLEAR); BILIRUBIN NEGATIVE (NEGATIVE); COLOR YELLOW (YELLOW); GLUCOSE NEGATIVE (NEGATIVE); KETONE NEGATIVE (NEGATIVE); NITRITE NEGATIVE (NEGATIVE); PROTEIN NEGATIVE (NEGATIVE); SPECIFIC GRAVITY 1.005 (1.005-1.020); UROBILINOGEN NORMAL (NORMAL)
[2018-10-04 10:56] VITALS: BP 122/45; BMI 42.1
[2018-10-04 11:16] VITALS: BP 122/45
[2018-10-04 12:30] LABS: % SATURATION 19 % (15-55); IRON 65 ug/dl (35-150); TOTAL IRON BIND CAPACITY 338 ug/dl (260-445); UNSAT IRON BIND CAPACITY 273 ug/dl (150-375)
[2018-10-04 17:06] LABS: BASOPHILS 0.5 % (0-2); EOSINOPHILS 1.2 % (0-7); HEMATOCRIT 30.8 % (36.0-48.0); HEMOGLOBIN 10.2 g/dL (12-16); IMMATURE GRANULOCYTES 0.4 % (0-5); MCH 27.9 pg (26.0-34.0); MCHC 33.1 g/dL (31.0-37.0); MCV 84.4 fL (80.0-100.0); MEAN PLATELET VOLUME 9.5 fL (7.4-10.4); MONOCYTES 12.2 % (2-11); NEUTROPHILS 64.7 % (40-80); PLATELET COUNT 268 10x3/uL (130-400); RBC 3.65 10x6/uL (4.00-5.40); RDW 14.9 % (11.5-14.5); WBC 7.3 10x3/uL (4.8-10.8)
--- NOTE | 2018-10-04 17:55 | MORECARE ---
CASE MANAGEMENT DISCHARGE SUMMARY PATIENT: JAMESON JAIN UNIT: [id number] ADM DATE: 10/04/18 AGE: 63 : 51 SEX: F ROOM/BED: D.6108 AUTHOR: SARKIS,DOC PHYSICIAN: REFERRING PHYSICIAN: AGUILA GEE MD DATE OF SERVICE: 10/04/18 Discharge Plan Patient Name: JAMESON JAIN Facility: [facility]:[place] : 1955 Planned Disposition: Home Anticipated Discharge Date: Discharge Date: Expected LOS: Initial Reviewer: [email or web address] Initial Review Date: 10/04/2018 Generated: 10/04/18 6:54 pm Comments DCP- Discharge Planning Updated by [email or web address]: Josue Sal on 10/04/18 4:[address] Patient Name: JAMESON JAIN Admission Status: ER Accout number: [id number] Admission Date: 10-04-2018 : 1955 Admission Diagnosis: Attending: AGUILA GEE Current LOS: 1 Anticipated DC Date: Planned Disposition: Home Primary Insurance: MEDICARE A & B Discharge Planning Comments: CM RECEIVED ORDER FOR POSSIBLE HOME HEALTH. CM MET WITH PT IN ROOM TO DISCUSS DISCHARGE PLANNING AND NEEDS. PT REPORTS LIVING AT HOME INDEPENDENTLY WITH HER ELDERLY MOTHER. PT HAS NEBULIZER, HOME AND PORTABLE OXYGEN AND WALKER FROM [facility]. PT HAS NO OUTSIDE SERVICES ASSISTING IN THE HOME. CM DISCUSSED AVAILABILITY OF HOME HEALTH, REHAB SERVICES AND MEDICAL EQUIPMENT. PT WILL "THINK ABOUT HOME HEALTH AND LET CM KNOW". PT REPORTS HER DAUGHTER WILL PICK HER UP FOR DISCHARGE HOME. PT PLANS TO DISCHARGE HOME WITH FAMILY. PT IS "THINKING ABOUT" HOME HEALTH. CM TO ARRANGE HOME HEALTH WITH PHYSICIAN ORDER AND PT'S AGREEMENT FOR SERVICES IF NEEDED. Clarification Operator: Josue Sal DCPIA - Discharge Planning Initial Assessment Updated by [email or web address]: Josue Sal on 10/04/18 5:46 pm * Is the patient Alert and Oriented? Yes * How many steps to enter\\exit or inside your home? NONE * PCP Alyssa MUNOZ * Pharmacy [facility] [address] * Preadmission Environment Home with Family * ADLs Independent * Equipment Nebulizer Oxygen Walker * Other Equipment [facility] - HOME AND PORTABLE OXYGEN * List name and contact numbers for known caregivers / representatives who currently or will assist patient after discharge: SAAD GLEASON, DTR, * Verbal permission to speak to the caregivers and representatives has been obtained from the patient. N/A * Community resources currently utilized None * Please name any agencies selected above. NONE * Additional services required to return to the preadmission environment? No * Can the patient safely return to the preadmission environment? Yes * Has this patient been hospitalized within the prior 30 days at any hospital? No Patient Name: JAMESON JAIN Page [id number] at 1755 All edits/amendments must be made on the electronic document DICTATION DATE: 10/04/181753 [employer] PRODUCER: ROXANNE 10/04/181753 RPT#: [id number] DC DATE: STATUS: ADM IN [facility] [address] [place] [address] END OF REPORT
--- NOTE | 2018-10-04 19:00 | NUR ---
PATIENT LAYING IN BED, NO COMPLAINTS AT THIS TIME. NO DISTRESS NOTED.
[2018-10-04 20:00] VITALS: BP 117/51
[2018-10-04 22:59] LABS: HEMATOCRIT 29.3 % (36.0-48.0); HEMOGLOBIN 9.7 g/dL (12-16); MCH 27.9 pg (26.0-34.0); MCHC 33.1 g/dL (31.0-37.0); MCV 84.2 fL (80.0-100.0); PLATELET COUNT 293 10x3/uL (130-400); RBC 3.48 10x6/uL (4.00-5.40)
[2018-10-04 23:00] LABS: MEAN PLATELET VOLUME 9.6 fL (7.4-10.4)
[2018-10-05 00:02] VITALS: BP 109/47
[2018-10-05 00:25] LABS: LYMPHOCYTES 34 % (15-50); MONOCYTES 3 % (2-11); NEUTROPHILS 62 % (40-80); PLATELET ESTIMATE NORMAL
--- NOTE | 2018-10-05 03:31 | NUR ---
I have reviewed this patient and I concur with the Shift Assessment completed by the Licensed Practical Nurse today this shift.
[2018-10-05 04:08] VITALS: BP 114/57
[2018-10-05 07:12] LABS: BASOPHILS 0.4 % (0-2); EOSINOPHILS 1.8 % (0-7); HEMATOCRIT 30.8 % (36.0-48.0); HEMOGLOBIN 10.1 g/dL (12-16); IMMATURE GRANULOCYTES 0.4 % (0-5); LYMPHOCYTES 20.7 % (15-50); MCHC 32.8 g/dL (31.0-37.0); MCV 85.3 fL (80.0-100.0); MEAN PLATELET VOLUME 9.4 fL (7.4-10.4); MONOCYTES 13.3 % (2-11); NEUTROPHILS 63.4 % (40-80); PLATELET COUNT 270 10x3/uL (130-400); RBC 3.61 10x6/uL (4.00-5.40); WBC 6.7 10x3/uL (4.8-10.8)
[2018-10-05 07:21] LABS: ANION GAP 13.7 mmol/L (8-16); CALCIUM 8.5 mg/dL (8.5-10.1); CARBON DIOXIDE 24.2 mmol/L (21.0-32.0); POTASSIUM - SERUM 4.9 mmol/L (3.5-5.1)
--- NOTE | 2018-10-05 07:21 | NUR ---
REPORT RECEIVED. WILL CONTINUE WITH POC. PT CURRENTLY LYING SEMI FOWLERS. CALL LIGHT W/I REACH. PT IS AAO AND UP AD GUERLINE. RR EVEN AND UNLABORED ON 1L 02. R.AC PIV IS SALINE LOCKED. PT DENIES ANY NEEDS AT THIS TIME. NO S/S OF DISTRESS NOTED. WILL CTM.
[2018-10-05 07:55] VITALS: BP 112/66
[2018-10-05] MEDS ORDERED: PEPCID PO (11:05)
[2018-10-05] MEDS ORDERED: PROTONIX40 MG PO (11:05)
[2018-10-05] MEDS ORDERED: CARAFATE1 G PO (11:06)
[2018-10-05 12:25] VITALS: BP 119/74
--- NOTE | 2018-10-05 14:40 | NUR ---
I have reviewed this patient and I concur with the Shift Assessment completed by the Licensed Practical Nurse today this shift.
[2018-10-05 15:01] VITALS: Ht 165.1 cm; Wt 114.8 kg
--- NOTE | 2018-10-05 16:34 | NUR ---
PT DISCHARGED HOME VIA WHEELCHAIR WITH FAMILY. PIV REMOVED WITH CATHETER TIP FULLY INTACT. TELEMETRY REMOVED AND RETURNED. PT SIGNED PROPER DISCHARGE INSTRUCTION AND REMOVED ALL VALUABLES FROM THE ROOM.
== END 2018-10-05 16:35 | disposition home or self-care (01) | DRG 378 ==
LOC: D.ER 06:28 → D.M2 09:54 → OBSVTIME 09:55 → D.M2 17:31
PROVIDERS: Emergency Medicine; Family Medicine; Internal Medicine Gastroenterology; ADMIT Internal Medicine Nephrology; ATTEND Internal Medicine Nephrology
PROC: 0DJ08ZZ Inspection of Upper Intestinal Tract, Via Natural or Artificial Opening Endoscopic (ICD-10-PCS; principal; 2018-10-04 13:13)
DX: K29.71 Gastritis, unspecified, with bleeding (principal); D62 Acute posthemorrhagic anemia; D68.9 Coagulation defect, unspecified; N17.9 Acute kidney failure, unspecified; I50.32 Chronic diastolic (congestive) heart failure; F17.213 Nicotine dependence, cigarettes, with withdrawal; K21.0 Gastro-esophageal reflux disease with esophagitis; I11.0 Hypertensive heart disease with heart failure; I48.0 Paroxysmal atrial fibrillation; E78.5 Hyperlipidemia, unspecified; J44.9 Chronic obstructive pulmonary disease, unspecified; I25.10 Atherosclerotic heart disease of native coronary artery without angina pectoris; E03.9 Hypothyroidism, unspecified; G47.33 Obstructive sleep apnea (adult) (pediatric); I73.9 Peripheral vascular disease, unspecified

== ENCOUNTER 2018-10-12 06:56 | Emergency (ER) | payer MEDICARE, BC ==
[~2018-10-12] VITALS: Ht 165.1 cm; Wt 115.0 kg
[~2018-10-12 06:56] MED LIST changes: +CARAFATE1 G PO; -CRESTOR10 MG PO; +CRESTOR40 MG PO; +LEVO-T300 MCG PO; -LEVOTHYROXINE175 MCG PO; +PEPCID PO; +PROTONIX40 MG PO
[2018-10-12 06:59] VITALS: Ht 165.1 cm; Wt 115.0 kg
[2018-10-12 07:33] LABS: BASOPHILS 0.1 % (0-2); EOSINOPHILS 0 % (0-7); HEMATOCRIT 34.5 % (36.0-48.0); HEMOGLOBIN 11.5 g/dL (12-16); IMMATURE GRANULOCYTES 0.2 % (0-5); LYMPHOCYTES 6.8 % (15-50); MCH 28.2 pg (26.0-34.0); MCHC 33.3 g/dL (31.0-37.0); MCV 84.6 fL (80.0-100.0); MEAN PLATELET VOLUME 9.4 fL (7.4-10.4); MONOCYTES 6.6 % (2-11); NEUTROPHILS 86.3 % (40-80); PLATELET COUNT 271 10x3/uL (130-400); RBC 4.08 10x6/uL (4.00-5.40); RDW 14.5 % (11.5-14.5); WBC 12.4 10x3/uL (4.8-10.8)
[2018-10-12 07:47] LABS: ALBUMIN 3.5 g/dL (3.4-5.0); ANION GAP 13.4 mmol/L (8-16); BILIRUBIN - TOTAL 0.32 mg/dL (0.2-1.3); CALCIUM 8.9 mg/dL (8.5-10.1); CARBON DIOXIDE 25.6 mmol/L (21.0-32.0); CREATININE - SERUM 1.1 mg/dL (0.6-1.3); PROTEIN - SERUM 7.1 g/dL (6.4-8.2)
[2018-10-12] MEDS ORDERED: ENTRESTO 24 MG1 EACH PO (07:59)
[2018-10-12] MEDS ORDERED: PREDNISONE20 MG PO (08:11)
[2018-10-12 08:25] VITALS: BP 105/51
== END 2018-10-12 08:30 | disposition home or self-care (01) ==
LOC: D.ER 06:56
PROVIDERS: Family Medicine
DX: T50.995A Adverse effect of other drugs, medicaments and biological substances, initial encounter (principal); Y92.89 Other specified places as the place of occurrence of the external cause; E11.9 Type 2 diabetes mellitus without complications